=== PATIENT | female | born 1945 | race Caucasian/White ===

== ENCOUNTER → 2019-05-16 14:21 | Outpatient (BNVA) | payer MEDICARE, SELFPAY | PROVIDERS: Family Provider Nurse Practitioner Family; PCP Nurse Practitioner Family; Visit Provider Nurse Practitioner Family | DX: E11.9 Type 2 diabetes mellitus without complications (principal); I10 Essential (primary) hypertension; E78.5 Hyperlipidemia, unspecified; L98.9 Disorder of the skin and subcutaneous tissue, unspecified; G47.00 Insomnia, unspecified; F41.9 Anxiety disorder, unspecified; K21.9 Gastro-esophageal reflux disease without esophagitis; M54.5 Low back pain | CPT/HCPCS: 80053; 80061; 83036; 83721; 84443; 85025 ==

== ENCOUNTER → 2019-05-17 14:23 | Outpatient (BNVA) | payer MEDICARE, SELFPAY | PROVIDERS: Family Provider Nurse Practitioner Family; PCP Nurse Practitioner Family; Visit Provider Anesthesiology | DX: M47.816 Spondylosis without myelopathy or radiculopathy, lumbar region (principal); Z79.891 Long term (current) use of opiate analgesic | CPT/HCPCS: 99213 ==

== ENCOUNTER 2019-09-06 13:16 | Outpatient (CLI) | payer MEDICARE, SELFPAY ==
--- NOTE | 2019-09-06 13:30 | CT_ITS ---
WS: [id number] CT scan of the chest without IV contrast, additional two-dimensional coronal and sagittal reconstruct ion was performed. 09/06/2019 Clinical Data: Pulmonary nodule Comparison: CT chest, 12/24/2018. DLP: 869.[address] scans at [facility] use at least one of these dose optimization techniques: automat ed exposure control; mA and/or kV adjustment per patient size (includes targeted exams where dose is matched to clinical indication); or iterative reconstruction. Findings: The 3 right lower lobe nodules remain unchanged in size, all measuring 0.4 cm. There are 2 of them se en best on axial image 31 of 63 and 1 at axial image 26 of 63. No masses or effusions are seen. The heart size is normal with no pericardial effusion. No pneumonia or pneumothorax is seen. There is coronary artery calcification. Minimal calcification of the wall of the thoracic aorta is noted. The pulmonary arterial system and thoracic aorta demonstrate no abnorma lities or dilatations. There is no axillary or significant mediastinal adenopathy. The upper abdomen shows no change from before. There are clips in the gallbladder fossa from cholecys tectomy. CT/CT chest wo con [id number] Impression: No change in right lower lobe nodules in size or configuration and recommend no further follow-up CT scan of the chest.
== END 2019-09-06 13:17 | disposition home or self-care (01) ==
LOC: RADWPI 13:20
PROVIDERS: Family Provider Nurse Practitioner Family; PCP Nurse Practitioner Family; Visit Provider Internal Medicine Critical Care Medicine
DX: R91.1 Solitary pulmonary nodule (principal)
CPT/HCPCS: 71250

== ENCOUNTER → 2019-09-27 11:04 | Outpatient (BNVA) | payer MEDICARE, SELFPAY | PROVIDERS: Family Provider Nurse Practitioner Family; PCP Nurse Practitioner Family; Visit Provider Anesthesiology | DX: M47.816 Spondylosis without myelopathy or radiculopathy, lumbar region (principal); M54.9 Dorsalgia, unspecified; Z79.891 Long term (current) use of opiate analgesic | CPT/HCPCS: 99213; 99214 ==

== ENCOUNTER 2019-09-27 11:56 | Emergency (ER) | payer MEDICARE, SELFPAY ==
[2019-09-27] VITALS (7 sets, daily range): BP systolic 150–191; BP diastolic 103–108; PULSE 90–96; RESP 14–21; TEMP 36.7; O2SAT 94–98; BMI 27.3
--- NOTE | 2019-09-27 12:11 | ED_ITS ---
HPI - Abdominal Pain General: Chief Complaint: Abdominal Pain Stated Complaint: ABD PAIN X 5 DAYS Time Seen by Provider: 09/27/19 12:11 History of Present Illness: HPI narrative: 73 yo female complaining of left side pain radiating into her back. Mostly in the left lower quadrant she denies hematochezia hematuria dysuria urgency or frequency has not had a fever at any recent antibiotic she had one episode of vomiting the other day she has any shortness of breath or cough exposed to anyone she knows of with COVID. MD elicited complaint: abdominal pain Pertinent past history: constipation Onset (ago): day(s) (3 to 4 days) Pain Consistency: intermittent Location: LLQ Severity: moderate Quality: cramping and aching Radiation: back Migration to: LUQ Exacerbating factors: movement and other (Exam) Relieving factors: rest Associated Symptoms: Reports anorexia, bloating, change in bowel habits, co nstipation, GI cramping and poor appetite; Denies coffee ground emesis, diarrhea, dyspepsia, dysuria, fever(s), heartburn, hematochezia, hematuria, hematemesis, loose stools, melena and nausea Review of Systems Const: Denies: fever(s) ENMT: Denies: throat pain, ear or mastoid pain, nasal discharge or nasal congestion Card: Denies: chest pain, edema, dyspnea on exertion or orthopnea Resp: Denies: dyspnea, productive cough or non-productive cough GI: Reports: constipation, bloating, GI cramping and change in bowel habits; Denies: nausea, hematemesis, coffee ground emesis, heartburn, diarrhea, hematochezia or melena : Denies: dysuria or hematuria Skin/Breast: Denies: rash or pruritus PFS ED PFSH: Medical History (Updated 09/27/19 @ 16:28 by Db Hernandez DO) Acute bilateral low back pain without sciatica Anxiety Back pain with history of spinal surgery Chronic GERD DDD (degenerative disc disease), lumbar Diabetes Dorsalgia, unspecified Encounter for long-term use of opiate analgesic Hyperlipemia Hypertension Insomnia Lumbar spondylosis Opioid contract exists Surgical History History of adenectomy History of appendectomy History of back surgery Hx of cholecystectomy Family History Other CAD (coronary artery disease) Stroke Social History (Updated 09/27/19 @ 11:29 by Lashaun Lawler LPN) Smoking and tobacco status: never smoked Alcohol intake: never Lives independently: Yes Household members: spouse Housing: House Marital status: Current occupational status: disabled History of recent travel: No Current gender identity: Female Physical Exam Const: COMMON NORMALS: no acute distress GENERAL APPEARANCE: cooperative and comfortable ORIENTATION/CONSCIOUSNESS: Yes awake, Yes oriented to person, Yes oriented to place and Yes oriented to time HENMT: COMMON NORMALS: normocephalic, atraumatic, hearing grossly normal bilaterally, external ears normal, EAC's normal, TM's normal bilaterally, Normal nasal mucous membranes and turbinates present, moist oral mucous membranes and oropharynx normal HEAD & SCALP: normocephalic and atraumatic NOSE: Normal nasal mucous membranes and turbinates present EXTERNAL EAR: Yes external ears normal EXTERNAL AUDITORY CANAL: EAC's normal TYMPANIC MEMBRANE: TM's normal bilaterally Eye: COMMON NORMALS: Equal, round and reactive pupils present, EOMs intact bilaterally, conjunctivae normal and no scleral icterus CONJUNCTIVA: Yes conjunctivae normal PUPIL: Yes Equal, round and reactive pupils present Neck/C-Spine: COMMON NORMALS: full ROM, no lymphadenopathy, supple and no JVD Lymph: LYMPHATIC: no lymphadenopathy noted and no lymphedema noted Resp: COMMON NORMALS: normal respiratory effort, No retractions, No use of accessory muscles and clear to auscultation bilaterally AUSCULTATION: clear to auscultation bilaterally Cardio: COMMON NORMALS: no JVD, regular rate, regular rhythm and No murmurs present (Cardio) RATE: regular rate RHYTHM: regular rhythm GI: COMMON NORMALS: Soft to palpation and No hepatosplenomegaly present AUSCULTATION: Yes normoactive bowel sounds PALPATION: Yes Soft to palpation, No Tenderness to palpation present (GI), No Guarding due to palpation present (GI) and Yes No hepatosplenomegaly present Extremity: COMMON NORMALS: normal to inspection, capillary refill normal, no clubbing, cyanosis or edema, no calf tenderness and no pedal edema Neuro: SENSORIUM/ORIENTATION: Yes oriented to person, Yes oriented to place and Yes oriented to time Skin: COMMON NORMALS: no rashes or lesions noted GENERAL SKIN EXAM: no rashes or lesions noted Course Vital Signs: Vital signs: Vital Signs Temperature 98.0 F 09/27/19 12:02 Pulse Rate 90 09/27/19 17:15 Respiratory Rate 18 09/27/19 17:15 Blood Pressure 150/106 09/27/19 17:15 Pulse Oximetry 96 09/27/19 17:15 MDM - Abdominal Pain MDM Narrative: Medical decision making narrative: CT does not show any diverticulitis instead shows large amount of constipation. She had moderate relief of symptoms with no current molasses enema enema. We will have her use mag citrate further to relieve her symptoms. Encourage her to use [id number] stool softeners twice a day to prevent recurrence and strongly encourage her to follow-up with her primary care doctor she should get a colonoscopy sometime in the next few months. She has not had one for greater than 10 years she reports. Lab Data: Labs: Lab Results 09/27/19 09/27/19 09/27/19 Range/Units 12:27 12:27 12:27 WBC 11.3 H (4.0-10.0) 10^3/ uL RBC 4.30 (4.1-5.3) 10^6/u L Hgb 12.3 (11.5-15.3) g/dL Hct 38.8 (37.0-47.0) % MCV 90.2 (81-99) fL MCH 28.6 (28.0-34.0) pg MCHC 31.7 (30.0-36.0) g/dL RDW 13.6 (12.1-15.1) % Plt Count 332 (130-400) 10^3/c mm MPV 10.2 (7.4-10.4) fL Neut % (Auto) 57.3 % Lymph % (Auto) 35.1 % Frio % (Auto) 5.7 % Eos % (Auto) 1.0 % Baso % (Auto) 0.5 % Neut # (Auto) 6.5 (1.8-7.7) 10^3/u L Lymph # (Auto) 4.0 (0.8-4.8) 10^3/u L Frio # (Auto) 0.7 (0.2-0.9) 10^3/u L Eos # (Auto) 0.1 (0.0-0.8) 10^3/u L Baso # (Auto) 0.1 (0.0-0.1) 10^3/u L Nucleated RBC % (a uto) 0 % Nucleated RBCs # 0.0 /100WBC Sodium 137 (136-145) mmol/L Potassium 4.2 (3.5-5.1) mmol/L Chloride 98 (98-107) mmol/L Carbon Dioxide 26 (22-29) mmol/L Anion Gap 17.2 (5-19) BUN 14 (8-23) mg/dL Creatinine 1.2 H (0.5-0.9) mg/dL Glucose 240 H (65-115) mg/dL Calculated Osmolal ity 288 (285-295) mOsm/k g Lactate 2.7 H (0.5-2.2) mmol/L Calcium 10.1 (8.5-10.5) mg/dL Total Bilirubin 0.4 (0.15-1.2) mg/dL AST 27 (0-32) U/L ALT 22 (0-33) U/L Alkaline Phosphata se 67 (35-105) IU/L Total Protein 7.4 (6.6-8.7) g/dL Albumin 4.6 (3.5-5.2) g/dL Globulin 2.8 (1.3-4.6) g/dL Lipase 27 (13-60) U/L Urine Color (Yellow) Urine Appearance (CLEAR) Urine pH (5-7) Ur Specific Gravit y (1.005-1.030) Urine Protein (Negative) Urine Glucose (UA) (Normal) Urine Ketones (Negative) Urine Blood (Negative) Urine Nitrate (Negative) Urine Bilirubin (NEGATIVE) Urine Urobilinogen (Negative) mg/dL Ur Leukocyte Sis ase (Negative) 09/27/19 Range/Units 12:48 WBC (4.0-10.0) 10^3/ uL RBC (4.1-5.3) 10^6/u L Hgb (11.5-15.3) g/dL Hct (37.0-47.0) % MCV (81-99) fL MCH (28.0-34.0) pg MCHC (30.0-36.0) g/dL RDW (12.1-15.1) % Plt Count (130-400) 10^3/c mm MPV (7.4-10.4) fL Neut % (Auto) % Lymph % (Auto) % Frio % (Auto) % Eos % (Auto) % Baso % (Auto) % Neut # (Auto) (1.8-7.7) 10^3/u L Lymph # (Auto) (0.8-4.8) 10^3/u L Frio # (Auto) (0.2-0.9) 10^3/u L Eos # (Auto) (0.0-0.8) 10^3/u L Baso # (Auto) (0.0-0.1) 10^3/u L Nucleated RBC % (a uto) % Nucleated RBCs # /100WBC Sodium (136-145) mmol/L Potassium (3.5-5.1) mmol/L Chloride (98-107) mmol/L Carbon Dioxide (22-29) mmol/L Anion Gap (5-19) BUN (8-23) mg/dL Creatinine (0.5-0.9) mg/dL Glucose (65-115) mg/dL Calculated Osmolal ity (285-295) mOsm/k g Lactate (0.5-2.2) mmol/L Calcium (8.5-10.5) mg/dL Total Bilirubin (0.15-1.2) mg/dL AST (0-32) U/L ALT (0-33) U/L Alkaline Phosphata se (35-105) IU/L Total Protein (6.6-8.7) g/dL Albumin (3.5-5.2) g/dL Globulin (1.3-4.6) g/dL Lipase (13-60) U/L Urine Color Yellow (Yellow) Urine Appearance Clear (CLEAR) Urine pH 5.0 (5-7) Ur Specific Gravit y 1.020 (1.005-1.030) Urine Protein Neg (Negative) Urine Glucose (UA) 2+ (Normal) Urine Ketones Negative (Negative) Urine Blood Neg (Negative) Urine Nitrate Negative (Negative) Urine Bilirubin Neg (NEGATIVE) Urine Urobilinogen Norm (Negative) mg/dL Ur Leukocyte Sis ase Negative (Negative) Discharge Plan Discharge Patient Disposition: Home, Self-Care Clinical Impression: Constipation Condition: Stable Prescriptions: New magnesium citrate Solution 150 ml PO TID PRN (Reason: constipation) Qty: 296 RF: 0 No Action hydrocodone-acetaminophen 5-325 mg tablet 1 tab PO QID PRN (Reason: pain) 7 Days Qty: 28 RF: 0 baclofen 10 mg tablet 10 mg PO TID PRN (Reason: spasms) 30 Days Qty: 90 RF: 1 (DME) blood pressure monitor [Blood Pressure Kit] Kit See Rx Instructions .ROUTE .MEDSUPPLY Qty: 1 RF: 0 quetiapine 100 mg tablet 100 mg PO DAILY 30 Days Qty: 30 RF: 5 duloxetine 60 mg capsule, delayed rel sprinkle 60 mg PO DAILY 30 Days Qty: 30 RF: 5 pantoprazole 40 mg tablet,delayed release (DR/EC) 40 mg PO DAILY 30 Days Qty: 30 RF: 5 atorvastatin 80 mg tablet 80 mg PO DAILY 30 Days Qty: 30 RF: 5 lisinopril-hydrochlorothiazide 20-25 mg tablet 1 tab PO DAILY 30 Days Qty: 30 RF: 5 Janumet XR 100-1,000 mg tablet, ER multiphase 24 hr 1 tab PO DAILY 30 Days Qty: 30 RF: 5 meloxicam 15 mg tablet 15 mg PO DAILY 30 Days Qty: 30 RF: 5 omega-3 fatty acids [Fish Oil Concentrate] 1,000 mg capsule 1,000 mg PO BID 30 Days Qty: 60 RF: 5 fluticasone propionate [Flonase Allergy Relief] 50 mcg/actuation spray,suspension 1 spray INTRANASAL DAILY Qty: 16 RF: 3 Multiple Vitamins Tablet 1 tab PO DAILY RF: 0 Discharge Orders: Discharge Order (Routine); Ordered 09/27/19 Ordered By: Db Hernandez Referrals: Venecia Bernardo FNP-C [Primary Care Provider] - Discharge Date/Time: 09/27/19 17:15 Coding Level of Care Code ED Machine Group Leader for Chg Fwd Exam Comprehensive
--- NOTE | 2019-09-27 12:21 | CT_ITS ---
WS: [id number] CT ABDOMEN AND PELVIS WITH CONTRAST HISTORY: Generalized abdominal pain. TECHNIQUE: Imaging performed of the abdomen and pelvis with IV contrast. Single phase imaging of the abdomen. Coronal and sagittal reformats are submitted. All CT scans at [facility] use at least one of these dose optimization techniques: automated exposure control; mA and/or kV adjustment per patient size (includes targeted exams where dose is matched to clinical indication); or iterativ e reconstruction. IV CONTRAST: Visipaque 320; 95 mL IV. Oral contrast: No DLP: 1090.05 mGy.cm COMPARISON: 12/06/2018 Lower thorax: Stable micronodules in the RIGHT lower lung field since 12/24/2018. No pneumonia. Heart is normal size. Small hiatal hernia. Liver/biliary system: Normal size liver. There is mild intrahepatic duct dilatation which may be phys iologic and based on the prior cholecystectomy. Gallbladder: Prior cholecystectomy. Common bile duct measures 10 mm. Pancreas: Normal. Spleen: Normal size with granulomata. Adrenal glands: Normal. Right kidney: Mild cortical thinning. Solid enhancing mass with peripheral calcification measures 16 mm upper pole RIGHT kidney has been previously described. No significant increase in size since 2018. There is an additional hypoattenuating nodule measuring 10 mm in the lower pole cortex. Left kidney: Exophytic cyst lower pole measures 18 mm. Aorta: Mild atherosclerosis. No aneurysm. Lymphadenopathy: None. Free fluid: None. GI tract: There is extensive fecal retention throughout the colon. Mixture of air and fecal material. No solid mass or point of obstruction is identified. The lumen becomes small caliber near the rectum and distal sigmoid. Prior appendectomy. Stomach is also moderately distended with fluid and food pro ducts. Abdominal wall: Unremarkable abdominal wall. No hernia. Pelvis: Normal. Prior hysterectomy. Bones: Prior L4-[address]/CT abdomen pelvis w con* [id number] IMPRESSION: 1. Mild diffuse fluid and fecal retention throughout the colon. Suspect mild i leus. No transition point is identified although the lumen becomes narrowed tow ards the sigmoid and rectum. 2. No ascites. 3. Prior appendectomy, cholecystectomy and hysterectomy. 4. Mild central bile duct dilatation is similar to prior studies. 5. Solid RIGHT renal mass stable at 16 mm. Additional solid mass or complex cy st in the lower pole the RIGHT kidney. These masses were described on 12/06/2018 without progression.
[2019-09-27 12:34] LABS: Basophils # 0.1 10^3/uL (0.0-0.1); Basophils % 0.5 %; Eosinophils # 0.1 10^3/uL (0.0-0.8); Hematocrit 38.8 % (37.0-47.0); Hemoglobin 12.3 g/dL (11.5-15.3); Lymphocytes % 35.1 %; Mean Corpuscular HGB Conc 31.7 g/dL (30.0-36.0); Mean Corpuscular Hemoglobin 28.6 pg (28.0-34.0); Mean Corpuscular Volume 90.2 fL (81-99); Mean Platelet Volume 10.2 fL (7.4-10.4); Monocytes # 0.7 10^3/uL (0.2-0.9); Monocytes % 5.7 %; Neutrophils # 6.5 10^3/uL (1.8-7.7); Neutrophils % 57.3 %; Nucleated Red Blood Cells % 0 %; Platelet Count 332 10^3/cmm (130-400); Red Cell Distribution Width 13.6 % (12.1-15.1); White Blood Count 11.3 10^3/uL (4.0-10.0)
[2019-09-27] MEDS: sodium chlor 0.9% + KCl 20 mEq 20 MEQ/1,000 ML BAG 125 MEQ IV (12:52)
[2019-09-27] MEDS: ondansetron 2 mg/ML SDV 2 mL 4 MG IVP (12:53)
[2019-09-27] MEDS: morphine 4 mg/mL SDV 1 mL 2 MG IVP (12:53)
[2019-09-27 13:02] LABS: Alanine Aminotransferase 22 U/L (0-33); Albumin Level 4.6 g/dL (3.5-5.2); Alkaline Phosphatase 67 IU/L (35-105); Anion Gap 17.2 (5-19); Aspartate Amino Transferase 27 U/L (0-32); Blood Urea Nitrogen 14 mg/dL (8-23); Calcium 10.1 mg/dL (8.5-10.5); Carbon Dioxide 26 mmol/L (22-29); Chloride 98 mmol/L (98-107); Globulin 2.8 g/dL (1.3-4.6); Glucose 240 mg/dL (65-115); Lipase 27 U/L (13-60); Osmolality Calculated 288 mOsm/kg (285-295); Potassium 4.2 mmol/L (3.5-5.1); Sodium 137 mmol/L (136-145); Total Bilirubin 0.4 mg/dL (0.15-1.2); Total Protein 7.4 g/dL (6.6-8.7)
[2019-09-27 13:09] LABS: Lactate (Lactic Acid level) 2.7 mmol/L (0.5-2.2)
[2019-09-27] MEDS: iodixanol 320 mg/mL 100mL Btl IV (13:20)
[2019-09-27 13:41] LABS: Add Urine Microscopic? NO
[2019-09-27 13:54] LABS: Bilirubin Urine Neg (NEGATIVE); Blood Urine Neg (Negative); Glucose Urine UA 2+ (Normal); Ketones Urine Negative (Negative); Leukocyte Esterase Urine Negative (Negative); Nitrate Urine Negative (Negative); Protein Urine Neg (Negative); Urine Appearance Clear (CLEAR); Urine Color Yellow (Yellow); Urobilinogen Urine Norm (Negative)
--- NOTE | 2019-09-27 16:25 | PC.NURSE ---
Patient reports that she had a small bowel movement. Physician notified.
== END 2019-09-27 17:15 | disposition home or self-care (01) ==
PROVIDERS: Emergency Provider Family Medicine; Family Provider Nurse Practitioner Family; PCP Nurse Practitioner Family
DX: K59.00 Constipation, unspecified (principal); E11.9 Type 2 diabetes mellitus without complications; E78.5 Hyperlipidemia, unspecified; I10 Essential (primary) hypertension
CPT/HCPCS: 12345; 36415; 45915; 74177; 80053; 81003; 83605; 83690; 85025; 87040; 96365; 96366; 96375; 99283; 99284; J2270; J2405; Q9967

== ENCOUNTER → 2019-10-19 15:20 | Outpatient (BNVA) | payer MEDICARE, SELFPAY | PROVIDERS: Family Provider Nurse Practitioner Family; PCP Nurse Practitioner Family; Visit Provider Nurse Practitioner Family | DX: E78.5 Hyperlipidemia, unspecified (principal); E11.9 Type 2 diabetes mellitus without complications | CPT/HCPCS: 80053; 80061; 83036; 84443; 85025 ==

== ENCOUNTER → 2019-11-22 12:25 | Outpatient (BNVA) | payer MEDICARE, SELFPAY | PROVIDERS: Family Provider Nurse Practitioner Family; PCP Nurse Practitioner Family; Visit Provider Nurse Practitioner | DX: M47.816 Spondylosis without myelopathy or radiculopathy, lumbar region (principal); M54.9 Dorsalgia, unspecified; F41.9 Anxiety disorder, unspecified; Z79.891 Long term (current) use of opiate analgesic | CPT/HCPCS: 99213 ==

== ENCOUNTER → 2019-12-21 13:48 | Outpatient (BNVA) | payer MEDICARE, SELFPAY | PROVIDERS: Family Provider Nurse Practitioner Family; PCP Nurse Practitioner Family; Visit Provider Anesthesiology | DX: M54.41 Lumbago with sciatica, right side (principal); M54.42 Lumbago with sciatica, left side; M47.816 Spondylosis without myelopathy or radiculopathy, lumbar region; M54.9 Dorsalgia, unspecified; F41.9 Anxiety disorder, unspecified; Z79.891 Long term (current) use of opiate analgesic | CPT/HCPCS: 99213; 99214 ==

== ENCOUNTER → 2019-12-22 13:46 | Outpatient (BNVA) | payer MEDICARE, SELFPAY | PROVIDERS: Family Provider Nurse Practitioner Family; PCP Nurse Practitioner Family; Visit Provider Nurse Practitioner | DX: N28.89 Other specified disorders of kidney and ureter (principal); E11.65 Type 2 diabetes mellitus with hyperglycemia; E55.9 Vitamin D deficiency, unspecified | CPT/HCPCS: 80048; 82306; 82607 ==

== ENCOUNTER → 2020-01-02 14:03 | Outpatient (BNVA) | payer MEDICARE, SELFPAY | PROVIDERS: PCP Nurse Practitioner Family; Visit Provider Nurse Practitioner | DX: E11.65 Type 2 diabetes mellitus with hyperglycemia (principal); I10 Essential (primary) hypertension | CPT/HCPCS: 83036 ==

== ENCOUNTER 2020-01-31 05:50 | Emergency (ER) | payer MEDICARE, SELFPAY ==
[2020-01-31 06:03] VITALS: BMI 26.6
[2020-01-31 06:12] VITALS: BP 160/100; BP 168/106; PULSE 94; PULSE 96; RESP 16; RESP 18; TEMP 36.8; O2SAT 94; O2SAT 95
[2020-01-31 06:34] VITALS: BP 149/101
--- NOTE | 2020-01-31 06:54 | XR_ITS ---
WS: [id number] XR shoulder RT min 2V* [id number] REASON FOR EXAM: fall/trauma FINDINGS: Mild changes of osteoarthropathy knee acromioclavicular and glenohumeral joint. Calcification in the rotator cuff tendon near its insertion. No fracture or other focal bony lesion of the shoulder joint. XR/XR shoulder RT min 2V* [id number] IMPRESSION: Osteoarthropathy and calcific tendinopathy as above.
--- NOTE | 2020-01-31 06:54 | XR_ITS ---
WS: [id number] XR cervical spine 3V* [id number] REASON FOR EXAM: fall/trauma FINDINGS: No cervical vertebral body compression deformity. Normal odontoid. Normal cervical spine alignment. Narrowing of the intervertebral disc spaces C5-T1. Degenerative facet joint changes C3-T1. XR/XR cervical spine 3V* [id number] IMPRESSION: Changes of degenerative spondylosis with no acute cervical spine abnormality.
--- NOTE | 2020-01-31 06:54 | XR_ITS ---
WS: [id number] XR shoulder LT min 2V* [id number] REASON FOR EXAM: fall/trauma FINDINGS: Same findings as reported on the examination of the left scapula. Osteoarthropathic change in the acromioclavicular and glenohumeral joint. Calcific rotator cuff tendi nopathy. XR/XR shoulder LT min 2V* [id number] IMPRESSION: No acute abnormality.
--- NOTE | 2020-01-31 06:56 | CT_ITS ---
WS: [id number] CT HEAD TECHNIQUE: Noncontrast CT of the head obtained from the skullbase to the vertex. CLINICAL INFORMATION: fall COMPARISON: None. DLP: 562.[address] scans at [facility] use at least one of these dose optimization techniques: automat ed exposure control; mA and/or kV adjustment per patient size (includes targeted exams where dose is matched to clinical indication); or iterative reconstruction. FINDINGS: No evidence of intracranial hemorrhage or mass effect. Ventricular system and basal cisterns are levine nt. Mild small vessel changes with mild parenchymal volume loss. Chronic lacunar infarct right caudat e. No extra-axial fluid collections. No evidence of mass or mass effect. Normal carias-white differenti ation. Paranasal sinuses and mastoid air cells are well aerated. .Normal visualized soft tissues. Vascular c alcification. Soft tissue edema overlying the right parietal calvarium. No acute fractures. CT/CT head wo con* [id number] IMPRESSION: 1. No evidence of intracranial hemorrhage or mass effect. 2. Mild small vessel changes. Mild parenchymal volume loss. 3. Soft tissue edema overlying the right parietal calvarium. No acute fracture s. 4. No acute intracranial findings. Notified Db Hernandez DO at 01/31/2020 8:17 AM.
--- NOTE | 2020-01-31 07:03 | PC.NURSE ---
Report to EBEN Ybarra
--- NOTE | 2020-01-31 07:04 | W.ED.FALL ---
HPI - Fall General: Chief Complaint: Fall Stated Complaint: BACK PAIN/FALL Time Seen by Provider: 01/31/20 06:10 History of Present Illness: HPI Narrative: 74-year-old female comes in complaining of upper back pain after a fall. She got up quickly to use the restroom and got lightheaded dizzy fell backwards she hit her upper back on the back of her head on the floor when she fell. She denies any loss of consciousness. She not had any vomiting or diarrhea she does have is what she describes a small knot on the back of her head she is not on any anticoagulants. She was ambulatory after the fall she denies any chest pain or abdominal pain. She does have little bit of lower left rib pain on palpation. MD complaint: fall Onset (ago): minute(s) Fall from: standing Fall witnessed: no Place fall occurred: home Loss of consciousness: None Prolonged down time: no Symptoms prior to fall: lightheadedness Location of injury: head and neck Location of injury - extremities: Bilateral: shoulder Severity: moderate Associated symptoms-after fall: Reports lightheadedness and neck pain; Denies abdominal pain, chest pain, confusion, difficulty walking, headache(s), hematuria, numbness, short of breath, vertigo or weakness Review of Systems Const: Denies: fever(s), chills, body aches, change in appetite, fatigue or malaise ENMT: Denies: throat pain, ear or mastoid pain, nasal discharge or nasal congestion Card: Reports: lightheadedness; Denies: chest pain Resp: Denies: dyspnea, productive cough or non-productive cough GI: Denies: abdominal pain : Denies: hematuria Musc: Reports: neck pain Skin/Breast: Denies: rash or pruritus Neuro: Denies: headache(s), difficulty walking, vertigo or confusion PFSH ED PFSH: Medical History (Updated 01/31/20 @ 12:40 by Db Hernandez DO) Acute bilateral low back pain without sciatica Anxiety Back pain with history of spinal surgery Chronic GERD DDD (degenerative disc disease), lumbar Diabetes mellitus with hyperglycemia, without long-term current use of insulin Dorsalgia, unspecified Encounter for long-term use of opiate analgesic Hyperlipemia Hypertension Insomnia Lumbar spondylosis Nodule of kidney Right 16mm seen [facility] [address] 2019 Opioid contract exists Surgical History History of adenectomy History of appendectomy History of back surgery 3 times on lumbar Hx of cholecystectomy Family History Other CAD (coronary artery disease) Stroke Social History Smoking and tobacco status: never smoked Second hand smoke exposure: No Smoking risk assessment/counseling performed?: No Alcohol intake: never Desire information about alcohol rehabilitation?: No Counseling given: No Desire information about substance/drug rehabilitation?: No Counseling given: No Adopted: No Caregiver/support person: No Lives independently: Yes Household members: spouse Housing: House Marital status: Current occupational status: disabled History of recent travel: No Current gender identity: Female Physical Exam Const: COMMON NORMALS: no acute distress GENERAL APPEARANCE: cooperative and comfortable ORIENTATION/CONSCIOUSNESS: Yes awake, Yes oriented to person, Yes oriented to place and Yes oriented to time HENMT: COMMON NORMALS: normocephalic, atraumatic and hearing grossly normal bilaterally HEAD & SCALP: normocephalic and atraumatic Eye: COMMON NORMALS: Equal, round and reactive pupils present, EOMs intact bilaterally, conjunctivae normal and no scleral icterus CONJUNCTIVA: Yes conjunctivae normal PUPIL: Yes Equal, round and reactive pupils present Neck/C-Spine: COMMON NORMALS: no JVD OTHER: No pain with palpation along the C-spine. Patient able to rotate bed flex and extend without difficulty. Lymph: LYMPHATIC: no lymphadenopathy noted and no lymphedema noted Resp: COMMON NORMALS: normal respiratory effort, No retractions, No use of accessory muscles and clear to auscultation bilaterally AUSCULTATION: clear to auscultation bilaterally Cardio: COMMON NORMALS: no JVD, regular rate, regular rhythm and No murmurs present (Cardio) RATE: regular rate RHYTHM: regular rhythm GI: COMMON NORMALS: Soft to palpation and No hepatosplenomegaly present AUSCULTATION: Yes normoactive bowel sounds PALPATION: Yes Soft to palpation, No Tenderness to palpation present (GI), No Guarding due to palpation present (GI) and Yes No hepatosplenomegaly present Extremity: OTHER: Full range of motion all extremities mild discomfort with palpation over the scapula bilaterally pain on the left lower ribs. Neuro: SENSORIUM/ORIENTATION: Yes oriented to person, Yes oriented to place and Yes oriented to time Skin: COMMON NORMALS: no rashes or lesions noted GENERAL SKIN EXAM: no rashes or lesions noted Course Vital Signs: Vital signs: Vital Signs Temperature 98.2 F 01/31/20 06:12 Pulse Rate 107 H 01/31/20 13:27 Respiratory Rate 14 01/31/20 13:27 Blood Pressure 186/112 01/31/20 13:27 Pulse Oximetry 97 01/31/20 13:27 MDM - Fall MDM Narrative: Medical decision making narrative: Imaging unremarkable. REviweed with patient and family. Will discharge from ER and f/u with PCP within the week. Lab Data: Labs: Lab Results 01/31/20 01/31/20 01/31/20 Range/Units 08:15 10:49 11:00 WBC 11.9 H (4.0-10.0) 10^3/ uL RBC 4.63 (4.1-5.3) 10^6/u L Hgb 13.4 (11.5-15.3) g/dL Hct 42.2 (37.0-47.0) % MCV 91.1 (81-99) fL MCH 28.9 (28.0-34.0) pg MCHC 31.8 (30.0-36.0) g/dL RDW 13.8 (12.1-15.1) % Plt Count 368 (130-400) 10^3/c mm MPV 10.5 H (7.4-10.4) fL Neut % (Auto) 65.9 % Lymph % (Auto) 26.7 % [place] % (Auto) 6.4 % Eos % (Auto) 0.3 % Baso % (Auto) 0.4 % Neut # (Auto) 7.87 H (1.8-7.7) 10^3/u L Lymph # (Auto) 3.2 (0.8-4.8) 10^3/u L [place] # (Auto) 0.8 (0.2-0.9) 10^3/u L Eos # (Auto) 0.0 (0.0-0.8) 10^3/u L Baso # (Auto) 0.1 (0.0-0.1) 10^3/u L Nucleated RBC % (a uto) 0 % Nucleated RBCs # 0.0 /100WBC Sodium (136-145) mmol/L Potassium (3.5-5.1) mmol/L Chloride (98-107) mmol/L Carbon Dioxide (22-29) mmol/L Anion Gap (5-19) BUN (8-23) mg/dL Creatinine (0.5-0.9) mg/dL GFR Calculation Glucose (65-115) mg/dL POC Glucose 130 (70-110) mg/dL Calculated Osmolal ity (285-295) mOsm/k g Calcium (8.5-10.5) mg/dL Urine Color Yellow (Yellow) Urine Appearance Clear (CLEAR) Urine pH 5.0 (5-7) Ur Specific Gravit y 1.020 (1.005-1.030) Urine Protein Neg (Negative) Urine Glucose (UA) Norm (Normal) Urine Ketones 1+ H (Negative) Urine Blood Neg (Negative) Urine Nitrate Negative (Negative) Urine Bilirubin 1+ H (Negative) Urine Urobilinogen Norm (Negative) mg/dL Ur Leukocyte Sis ase Negative (Negative) 01/31/20 Range/Units 11:00 WBC (4.0-10.0) 10^3/ uL RBC (4.1-5.3) 10^6/u L Hgb (11.5-15.3) g/dL Hct (37.0-47.0) % MCV (81-99) fL MCH (28.0-34.0) pg MCHC (30.0-36.0) g/dL RDW (12.1-15.1) % Plt Count (130-400) 10^3/c mm MPV (7.4-10.4) fL Neut % (Auto) % Lymph % (Auto) % [place] % (Auto) % Eos % (Auto) % Baso % (Auto) % Neut # (Auto) (1.8-7.7) 10^3/u L Lymph # (Auto) (0.8-4.8) 10^3/u L [place] # (Auto) (0.2-0.9) 10^3/u L Eos # (Auto) (0.0-0.8) 10^3/u L Baso # (Auto) (0.0-0.1) 10^3/u L Nucleated RBC % (a uto) % Nucleated RBCs # /100WBC Sodium 142 (136-145) mmol/L Potassium 3.7 (3.5-5.1) mmol/L Chloride 101 (98-107) mmol/L Carbon Dioxide 28 (22-29) mmol/L Anion Gap 16.7 (5-19) BUN 11 (8-23) mg/dL Creatinine 0.9 (0.5-0.9) mg/dL GFR Calculation Not Reportable Glucose 128 H (65-115) mg/dL POC Glucose (70-110) mg/dL Calculated Osmolal ity 295 (285-295) mOsm/k g Calcium 10.0 (8.5-10.5) mg/dL Urine Color (Yellow) Urine Appearance (CLEAR) Urine pH (5-7) Ur Specific Gravit y (1.005-1.030) Urine Protein (Negative) Urine Glucose (UA) (Normal) Urine Ketones (Negative) Urine Blood (Negative) Urine Nitrate (Negative) Urine Bilirubin (Negative) Urine Urobilinogen (Negative) mg/dL Ur Leukocyte Sis ase (Negative) Discharge Plan Discharge Patient Disposition: Home Clinical Impression: Fall, Back pain Condition: Stable Prescriptions: No Action atorvastatin 80 mg tablet 80 mg PO DAILY 30 Days Qty: 30 RF: 5 meloxicam 15 mg tablet 15 mg PO DAILY 30 Days Qty: 30 RF: 5 pantoprazole 40 mg tablet,delayed release (DR/EC) 40 mg PO DAILY 30 Days Qty: 30 RF: 5 quetiapine 100 mg tablet 100 mg PO DAILY 30 Days Qty: 30 RF: 5 omega-3 fatty acids [Fish Oil Concentrate] 1,000 mg capsule 1,000 mg PO BID 30 Days Qty: 60 RF: 5 metformin 500 mg tablet extended release 24 hr 500 mg PO BID Qty: 60 RF: 0 (DME) blood pressure monitor [Blood Pressure Kit] Kit See Rx Instructions .ROUTE .MEDSUPPLY Qty: 1 RF: 0 baclofen 10 mg tablet 10 mg PO TID PRN (Reason: spasms) 30 Days Qty: 90 RF: 3 hydrocodone-acetaminophen 7.5-325 mg tablet 1 tab PO QID PRN (Reason: pain) 30 Days Qty: 120 RF: 0 hydrocodone-acetaminophen 7.5-325 mg tablet 1 tab PO Q4-5H PRN (Reason: pain) 30 Days Qty: 120 RF: 0 duloxetine 60 mg capsule, delayed rel sprinkle 60 mg PO BID 30 Days Qty: 60 RF: 1 lisinopril 40 mg tablet 40 mg PO DAILY Qty: 30 RF: 2 furosemide [Lasix] 20 mg tablet 20 mg PO QAM Qty: 30 RF: 2 Ozempic 0.25 mg or 0.5 mg(2 mg/1.5 mL) pen injector 0.5 mg SUBCUT .weekly Qty: 1.5 RF: 2 fluticasone propionate [Flonase Allergy Relief] 50 mcg/actuation spray,suspension 1 spray INTRANASAL DAILY Qty: 16 RF: 3 Multiple Vitamins Tablet 1 tab PO DAILY RF: 0 magnesium citrate Solution 150 ml PO TID PRN (Reason: constipation) Qty: 296 RF: 0 Discharge Orders: Discharge Order (Routine); Ordered 01/31/20 Ordered By: Db Hernandez Referrals: Venecia Bernardo FNP-C [Primary Care Provider] - Coding Level of Care Code ED Professor Of Spanish for Chg Fwd Exam Comprehensive
--- NOTE | 2020-01-31 07:08 | XR_ITS ---
WS: [id number] XR ribs LT mn 3V w CXR1V 40052 REASON FOR EXAM: fall FINDINGS: No fracture or focal bone lesion involving the left ribs. No left pneumothorax. No left pleural effus ion. XR/XR ribs LT mn 3V w CXR1V [id number] IMPRESSION: No acute abnormality.
--- NOTE | 2020-01-31 07:08 | XR_ITS ---
WS: [id number] [place] [id number] REASON FOR EXAM: pain/fall FINDINGS: Same findings as noted on the shoulder examination. The scapula and remainder the bony structures of the right shoulder are intact. XR/[place] [id number] IMPRESSION: No acute abnormality.
--- NOTE | 2020-01-31 07:08 | XR_ITS ---
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 Calcifications in the soft tissues overlying the humeral head, likely within the rotator cuff tendon. No fracture or dislocation noted. No focal bony lesion. Scapula is intact. 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 Calc ific rotator cuff tendinopathy.
[2020-01-31 08:45] LABS: Add Urine Microscopic? NO
[2020-01-31 08:59] LABS: Glucose Urine UA Norm (Normal); Protein Urine Neg (Negative); Urine Appearance Clear (CLEAR); Urine Color Yellow (Yellow)
[2020-01-31 09:00] LABS: Bilirubin Urine 1+ (Negative); Blood Urine Neg (Negative); Ketones Urine 1+ (Negative); Leukocyte Esterase Urine Negative (Negative); Nitrate Urine Negative (Negative); Urobilinogen Urine Norm (Negative)
[2020-01-31] MEDS: HYDROcodone-acetaminophen 5-325 mg Tablet 1 TAB PO (09:03)
[2020-01-31 09:11] VITALS: BP 192/121; PULSE 94; RESP 18; O2SAT 94
[2020-01-31 10:51] LABS: Glucose Point of Care 130 mg/dL (70-110)
[2020-01-31 11:14] LABS: Basophils # 0.1 10^3/uL (0.0-0.1); Basophils % 0.4 %; Eosinophils % 0.3 %; Hematocrit 42.2 % (37.0-47.0); Hemoglobin 13.4 g/dL (11.5-15.3); Lymphocytes # 3.2 10^3/uL (0.8-4.8); Lymphocytes % 26.7 %; Mean Corpuscular HGB Conc 31.8 g/dL (30.0-36.0); Mean Corpuscular Hemoglobin 28.9 pg (28.0-34.0); Mean Corpuscular Volume 91.1 fL (81-99); Mean Platelet Volume 10.5 fL (7.4-10.4); Monocytes # 0.8 10^3/uL (0.2-0.9); Monocytes % 6.4 %; Neutrophils # 7.87 10^3/uL (1.8-7.7); Neutrophils % 65.9 %; Nucleated Red Blood Cells % 0 %; Platelet Count 368 10^3/cmm (130-400); Red Blood Count 4.63 10^6/uL (4.1-5.3); Red Cell Distribution Width 13.8 % (12.1-15.1); White Blood Count 11.9 10^3/uL (4.0-10.0)
[2020-01-31 11:28] VITALS: BP 240/130
[2020-01-31] MEDS: lisinopril 20 mg Tablet 40 MG PO (11:28)
[2020-01-31] MEDS: cloNIDine 0.1 mg Tablet PO (11:28)
[2020-01-31] MEDS: amlodipine 5 mg Tablet PO (11:29)
[2020-01-31 11:38] LABS: Anion Gap 16.7 (5-19); Blood Urea Nitrogen 11 mg/dL (8-23); Carbon Dioxide 28 mmol/L (22-29); Chloride 101 mmol/L (98-107); Glucose 128 mg/dL (65-115); Osmolality Calculated 295 mOsm/kg (285-295); Potassium 3.7 mmol/L (3.5-5.1); Sodium 142 mmol/L (136-145)
[2020-01-31 11:57] VITALS: BP 162/112; PULSE 104; RESP 16; O2SAT 95
[2020-01-31 13:27] VITALS: BP 186/112; PULSE 107; RESP 14; O2SAT 97
== END 2020-01-31 13:28 | disposition home or self-care (01) ==
PROVIDERS: Emergency Provider Family Medicine; PCP Nurse Practitioner Family
DX: M54.89 Other dorsalgia (principal); Z79.84 Long term (current) use of oral hypoglycemic drugs; Z79.891 Long term (current) use of opiate analgesic; E11.9 Type 2 diabetes mellitus without complications; E78.5 Hyperlipidemia, unspecified; I10 Essential (primary) hypertension
CPT/HCPCS: 12345; 36416; 70450; 71101; 72040; 73010; 73030; 80048; 81003; 82962; 85025; 99282; 99283

== ENCOUNTER → 2020-02-29 09:07 | Outpatient (BNVA) | payer MEDICARE, SELFPAY | PROVIDERS: PCP Nurse Practitioner Family; Visit Provider Anesthesiology | DX: M47.816 Spondylosis without myelopathy or radiculopathy, lumbar region (principal); M54.42 Lumbago with sciatica, left side; M54.9 Dorsalgia, unspecified; F41.9 Anxiety disorder, unspecified; Z79.891 Long term (current) use of opiate analgesic | CPT/HCPCS: 99213 ==

== ENCOUNTER → 2020-03-21 15:15 | Outpatient (BNVA) | payer MEDICARE, SELFPAY | PROVIDERS: PCP Nurse Practitioner Family; Visit Provider Nurse Practitioner Family | DX: M25.572 Pain in left ankle and joints of left foot (principal); M25.472 Effusion, left ankle; I10 Essential (primary) hypertension; E78.5 Hyperlipidemia, unspecified; E11.65 Type 2 diabetes mellitus with hyperglycemia; N28.89 Other specified disorders of kidney and ureter; M54.9 Dorsalgia, unspecified; K21.9 Gastro-esophageal reflux disease without esophagitis; G47.00 Insomnia, unspecified; R29.6 Repeated falls; R25.1 Tremor, unspecified; M79.89 Other specified soft tissue disorders | CPT/HCPCS: 73610; 80053; 80061; 83036; 84443; 85025 ==

== ENCOUNTER → 2020-04-25 12:58 | Outpatient (BNVA) | payer MEDICARE, SELFPAY | PROVIDERS: PCP Nurse Practitioner Family; Visit Provider Nurse Practitioner | DX: M54.9 Dorsalgia, unspecified (principal); M47.816 Spondylosis without myelopathy or radiculopathy, lumbar region; F41.9 Anxiety disorder, unspecified; Z79.891 Long term (current) use of opiate analgesic | CPT/HCPCS: 99213 ==

== ENCOUNTER → 2020-06-21 13:43 | Outpatient (BNVA) | payer MEDICARE, SELFPAY | PROVIDERS: PCP Nurse Practitioner Family; Visit Provider Nurse Practitioner | DX: M54.9 Dorsalgia, unspecified (principal); M47.816 Spondylosis without myelopathy or radiculopathy, lumbar region; F41.9 Anxiety disorder, unspecified; Z79.891 Long term (current) use of opiate analgesic | CPT/HCPCS: 99213 ==

== ENCOUNTER → 2020-07-12 12:08 | Outpatient (BNVA) | payer MEDICARE, SELFPAY | PROVIDERS: PCP Nurse Practitioner Family; Visit Provider Nurse Practitioner | DX: E11.65 Type 2 diabetes mellitus with hyperglycemia (principal); E78.5 Hyperlipidemia, unspecified; I10 Essential (primary) hypertension; I48.92 Unspecified atrial flutter; N28.89 Other specified disorders of kidney and ureter; K21.9 Gastro-esophageal reflux disease without esophagitis; G47.00 Insomnia, unspecified | CPT/HCPCS: 80053; 80061; 83036; 84443 ==

== ENCOUNTER → 2020-07-25 13:23 | Outpatient (BNVA) | payer MEDICARE, SELFPAY | PROVIDERS: PCP Nurse Practitioner Family; Visit Provider Anesthesiology | DX: M54.9 Dorsalgia, unspecified (principal); M47.816 Spondylosis without myelopathy or radiculopathy, lumbar region; F41.9 Anxiety disorder, unspecified; Z79.891 Long term (current) use of opiate analgesic | CPT/HCPCS: 99213 ==

== ENCOUNTER → 2020-09-25 13:00 | Outpatient (BNVA) | payer MEDICARE, SELFPAY | PROVIDERS: PCP Nurse Practitioner; Visit Provider Nurse Practitioner | DX: M47.816 Spondylosis without myelopathy or radiculopathy, lumbar region (principal); M54.9 Dorsalgia, unspecified; Z79.891 Long term (current) use of opiate analgesic | CPT/HCPCS: 99213 ==

== ENCOUNTER 2020-10-04 10:42 | Emergency (ER) | payer MEDICARE, SELFPAY ==
[2020-10-04 10:52] VITALS: BP 157/98; PULSE 74; RESP 16; TEMP 37; O2SAT 94; BMI 26.9
[2020-10-04 11:42] LABS: Bacteria Urine 1+ /hpf; Bilirubin Urine Neg (Negative); Blood Urine Neg (Negative); Glucose Urine UA Norm (Normal); Ketones Urine Negative (Negative); Leukocyte Esterase Urine Negative (Negative); Nitrate Urine Negative (Negative); Protein Urine Neg (Negative); RBC Urine 0-4 /hpf (0-2); Urine Appearance SL Hazy (CLEAR); Urine Color Yellow (Yellow); Urobilinogen Urine Norm (Negative); WBC Urine 0-4 /hpf (0-5); pH Urine 5 (5-7)
--- NOTE | 2020-10-04 12:10 | ECG_ITS ---
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 Measurements Intervals [place] Rate: 72 P: 38 NC: 146 QRS: -17 QRSD: 146 T: -4 QT: 386 QTc: 423 Interpretive Statements SINUS RHYTHM INTRAVENTRICULAR CONDUCTION DELAY [130+ ms QRS DURATION] POSSIBLE ANTERIOR MYOCARDIAL INFARCTION [30 ms Q WAVE IN V3/V4, OR R < 0.2 mV IN V4], PROBABLY OLD No previous ECG available for comparison Electronically Signed On 10-04-2020 23:39:29 CDT by Zac Rodriguez M.D. [id number]
--- NOTE | 2020-10-04 12:12 | W.ED.GENADLT ---
HPI - General Adult General: Chief complaint: General Medical Stated complaint: MHE,HIP PAIN POST FALL Time Seen by Provider: 10/04/20 12:06 History of Present Illness: HPI narrative: This patient is a 74-year-old female who presents to the emergency department with complaint of visual hallucinations. Patient states past couple days she states she has been seeing birds tigers and other animals in the house. Patient states this seemed to be more prevalent. Patient states she is never had a history of hallucinations before. Patient does take multiple medications including chronic pain medications. Patient was recently started on Flexeril and has stopped that 2 days ago. When she started having these hallucinations and felt that maybe this was the cause. Patient did have a fall 2 days ago and some bruising on the right side however moves all extremities and has no complaints of pain at this time. Patient denies suicidal homicidal ideation. Patient states she also takes Cymbalta. 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 Will do medical evaluation treat as needed Onset (ago): day(s) Severity: moderate Associated symptoms: Deny chest pain, dyspnea, headache(s), nausea, rash, palpitations or vomiting Review of Systems General: Reports: 10 or more systems reviewed and unremarkable except in HPI and below Const: Denies: fever(s), chills, body aches or fatigue Eyes: Denies: change in vision or blurry vision ENMT: Denies: throat pain, hoarseness or mouth pain Card: Denies: chest pain, palpitations, irregular heart rhythm, edema, swelling of feet/ankles or lightheadedness Resp: Denies: dyspnea, productive cough, non-productive cough, wheezing or pain on inspiration GI: Denies: abdominal pain, nausea or vomiting : Denies: flank pain, difficulty voiding, dysuria, urinary frequency, urinary urgency or urinary hesitancy Musc: Denies: neck pain, back pain, extremity pain, extremity swelling, joint pain, joint swelling, joint redness, joint warmth or limited range of motion Skin/Breast: Denies: rash, pruritus, erythema or skin tenderness Neuro: Denies: headache(s), numbness in extremities or weakness in extremities Psych: Reports: visual hallucinations; Denies: anxiety, depression or suicidal ideation PFS ED PFSH: Medical History Acute bilateral low back pain without sciatica Anxiety Back pain with history of spinal surgery Chronic GERD DDD (degenerative disc disease), lumbar Diabetes mellitus with hyperglycemia, without long-term current use of insulin Dorsalgia, unspecified Encounter for long-term use of opiate analgesic Hyperlipemia Hypertension Insomnia Lumbar spondylosis Nodule of kidney Right 16mm seen [facility] [address] 2019 Opioid contract exists Surgical History History of adenectomy History of appendectomy History of back surgery 3 times on lumbar Hx of cholecystectomy Family History Mother CAD (coronary artery disease) Cancer Dementia Father CAD (coronary artery disease) Denies family history of Diabetes Clotting disorder Chronic kidney disease (CKD) Suicide Anesthesia complication Bleeding disorder Lung disease Stroke Social History Smoking and tobacco status: never smoked Second hand smoke exposure: No Smoking risk assessment/counseling performed?: No Alcohol intake: never Desire information about alcohol rehabilitation?: No Counseling given: No Desire information about substance/drug rehabilitation?: No Counseling given: No Adopted: No Caregiver/support person: No Lives independently: Yes Household members: spouse Housing: House Marital status: Current occupational status: disabled History of recent travel: No Current gender identity: Female Physical Exam Const: COMMON NORMALS: no acute distress, average body habitus, patient oriented x3, no limitations, healthy appearing, alert and well nourished HENMT: COMMON NORMALS: normocephalic, atraumatic, hearing grossly normal bilaterally, external ears normal, EAC's normal, TM's normal bilaterally, Normal external nose present, Normal nasal mucous membranes and turbinates present, moist oral mucous membranes, oropharynx normal, dentition normal and gingiva normal HEAD & SCALP: normocephalic and atraumatic NOSE: Normal external nose present and Normal nasal mucous membranes and turbinates present EXTERNAL EAR: Yes external ears normal EXTERNAL AUDITORY CANAL: EAC's normal TYMPANIC MEMBRANE: TM's normal bilaterally Neck/C-Spine: COMMON NORMALS: full ROM, no lymphadenopathy, supple, no meningeal signs, no JVD, Thyroid normal and No carotid bruits THYROID: Thyroid normal Chest: COMMONS NORMALS: normal inspection of the chest, normal palpation of entire chest wall, normal inspection of the breasts and normal palpation of the breasts Breast/axilla inspection: Yes normal inspection of the breasts BREAST/AXILLA PALPATION: Yes normal palpation of the breasts Resp: COMMON NORMALS: normal respiratory effort, No retractions, No use of accessory muscles, clear to auscultation bilaterally and percussion normal AUSCULTATION: clear to auscultation bilaterally PERCUSSION: percussion normal Cardio: COMMON NORMALS: no JVD, regular rate, regular rhythm, S1 normal heart sound present, S2 normal heart sound present, No gallops present (Cardio), No clicks present (Cardio), No murmurs present (Cardio), No rub (Cardio) and Peripheral pulses 2+ throughout RATE: regular rate RHYTHM: regular rhythm HEART SOUNDS: S1 normal heart sound present and S2 normal heart sound present PERIPHERAL PULSES: Peripheral pulses 2+ throughout GI: COMMON NORMALS: Normal to inspection, nondistended, normoactive bowel sounds present, Soft to palpation, non-tender, No hepatosplenomegaly present, no masses and no bruits PALPATION: Yes Soft to palpation and Yes No hepatosplenomegaly present Back/Pelvis: COMMON NORMALS: thoracic and lumbar spine normal to inspection, no thoracic nor lumbar tenderness, thoraco-lumbar ROM normal and straight leg raise negative bilaterally Extremity: COMMON NORMALS: normal to inspection, full ROM, capillary refill normal, no joint enlargement, no clubbing, cyanosis or edema, no calf tenderness and no pedal edema Neuro: COMMON NORMALS: patient oriented x3 SENSORIUM/ORIENTATION: Yes alert MENINGEAL SIGNS: Yes no meningeal signs Course Reevaluation(s): Reevaluation #1: Discussed at length with patient and family about concerns. Patient thinks that she might be developing some Alzheimer's or some form of dementia. States that her mother had the same. We did discuss at length with patient's visual hallucinations. Patient states this happens in the evening after waking to go to the bathroom. Patient takes Seroquel to help sleep. Patient states that they make no noises she just sees him around the house. On his hallucinations. Patient has no suicidal homicidal ideation. We did discuss at length patient takes 100 mg of Seroquel at night for sleep. We suggest reducing this by half and follow-up with primary care physician in 3 to 5 days. Patient states understanding. Time: 13:49 Vital Signs: Vital signs: Vital Signs Temperature 98.6 F 10/04/20 10:52 Pulse Rate 70 10/04/20 13:19 Respiratory Rate 16 10/04/20 13:19 Blood Pressure 159/101 10/04/20 13:19 Pulse Oximetry 95 10/04/20 13:19 MDM - General Adult MDM Narrative: Medical decision making narrative: This patient is a 74-year-old female who presents to the emergency department with complaint of visual hallucinations. Patient states past couple days she states she has been seeing birds tigers and other animals in the house. Patient states this seemed to be more prevalent. Patient states she is never had a history of hallucinations before. Patient does take multiple medications including chronic pain medications. Patient was recently started on Flexeril and has stopped that 2 days ago. When she started having these hallucinations and felt that maybe this was the cause. Patient did have a fall 2 days ago and some bruising on the right side however moves all extremities and has no complaints of pain at this time. Patient denies suicidal homicidal ideation. Patient states she also takes Cymbalta. 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 Discussed at length with patient and family about concerns. Patient thinks that she might be developing some Alzheimer's or some form of dementia. States that her mother had the same. We did discuss at length with patient's visual hallucinations. Patient states this happens in the evening after waking to go to the bathroom. Patient takes Seroquel to help sleep. Patient states that they make no noises she just sees him around the house. On his hallucinations. Patient has no suicidal homicidal ideation. We did discuss at length patient takes 100 mg of Seroquel at night for sleep. We suggest reducing this by half and follow-up with primary care physician in 3 to 5 days. Patient states understanding. Continue all medications at home other than your Seroquel. You need to reduce this medication by one half. Do not abruptly stop taking Seroquel because she will have withdrawal symptoms. Seroquel might be the cause of her visual hallucinations. Follow-up with your primary care physician for any further medication adjustments and/or dementia screening. Return to the emergency department symptoms fail to improve or worsen Medical Records: Attestation: I reviewed the patient's medical records. Lab Data: Attestation: I reviewed the patient's lab results. Labs: Lab Results 10/04/20 10/04/20 10/04/20 Range/Units 11:06 11:06 12:28 WBC 8.6 (4.0-10.0) 10^3/ uL RBC 4.36 (4.1-5.3) 10^6/u L Hgb 12.9 (11.5-15.3) g/dL Hct 40.5 (37.0-47.0) % MCV 92.9 (81-99) fL MCH 29.6 (28.0-34.0) pg MCHC 31.9 (30.0-36.0) g/dL RDW 13.4 (12.1-15.1) % Plt Count 314 (130-400) 10^3/c mm MPV 9.9 (7.4-10.4) fL Neut % (Auto) 53.2 % Lymph % (Auto) 37.8 % [place] % (Auto) 5.7 % Eos % (Auto) 2.4 % Baso % (Auto) 0.7 % Neut # (Auto) 4.58 (1.8-7.7) 10^3/u L Lymph # (Auto) 3.3 (0.8-4.8) 10^3/u L [place] # (Auto) 0.5 (0.2-0.9) 10^3/u L Eos # (Auto) 0.2 (0.0-0.8) 10^3/u L Baso # (Auto) 0.1 (0.0-0.1) 10^3/u L Nucleated RBC % (a uto) 0 % Nucleated RBCs # 0.0 /100WBC Sodium (136-145) mmol/L Potassium (3.5-5.1) mmol/L Chloride (98-107) mmol/L Carbon Dioxide (22-29) mmol/L Anion Gap (5-19) BUN (8-23) mg/dL Creatinine (0.5-0.9) mg/dL GFR Calculation Glucose (65-115) mg/dL Calculated Osmolal ity (285-295) mOsm/k g Calcium (8.5-10.5) mg/dL Total Bilirubin (0.15-1.2) mg/dL AST (0-32) U/L ALT (0-33) U/L Alkaline Phosphata se (35-105) IU/L Ammonia (11-51) umol/L Total Protein (6.6-8.7) g/dL Albumin (3.5-5.2) g/dL Globulin (1.3-4.6) g/dL Urine Color Yellow (Yellow) Urine Appearance Sl hazy (CLEAR) Urine pH 5 (5-7) Ur Specific Gravit y 1.020 (1.005-1.030) Urine Protein Neg (Negative) Urine Glucose (UA) Norm (Normal) Urine Ketones Negative (Negative) Urine Blood Neg (Negative) Urine Nitrate Negative (Negative) Urine Bilirubin Neg (Negative) Urine Urobilinogen Norm (Negative) mg/dL Ur Leukocyte Sis ase Negative (Negative) Urine RBC 0-4 H (0-2) /hpf Urine WBC 0-4 H (0-5) /hpf Ur Squamous Epith Cells 10-15 H (0-5) /hpf Amorphous Sediment Not Reportable Urine Bacteria 1+ H (NONE) /hpf Salicylates (3-10) mg/dL Urine Opiates Scre en Positive H (Negative) ng/mL Acetaminophen (10-30) ug/mL Ur Barbiturates Sc reen Negative (Negative) ng/mL Ur Phencyclidine S crn Negative (Negative) ng/mL Ur Amphetamines Sc reen Negative (Negative) ng/mL U Benzodiazepines Scrn Negative (Negative) ng/mL Urine Cocaine Scre en Negative (Negative) ng/mL U Marijuana (THC) Screen Negative (Negative) ng/mL Ethyl Alcohol (0-10) mg/dL 10/04/20 10/04/20 Range/Units 12:28 12:28 WBC (4.0-10.0) 10^3/ uL RBC (4.1-5.3) 10^6/u L Hgb (11.5-15.3) g/dL Hct (37.0-47.0) % MCV (81-99) fL MCH (28.0-34.0) pg MCHC (30.0-36.0) g/dL RDW (12.1-15.1) % Plt Count (130-400) 10^3/c mm MPV (7.4-10.4) fL Neut % (Auto) % Lymph % (Auto) % [place] % (Auto) % Eos % (Auto) % Baso % (Auto) % Neut # (Auto) (1.8-7.7) 10^3/u L Lymph # (Auto) (0.8-4.8) 10^3/u L [place] # (Auto) (0.2-0.9) 10^3/u L Eos # (Auto) (0.0-0.8) 10^3/u L Baso # (Auto) (0.0-0.1) 10^3/u L Nucleated RBC % (a uto) % Nucleated RBCs # /100WBC Sodium 140 (136-145) mmol/L Potassium 4.3 (3.5-5.1) mmol/L Chloride 103 (98-107) mmol/L Carbon Dioxide 27 (22-29) mmol/L Anion Gap 14.3 (5-19) BUN 12 (8-23) mg/dL Creatinine 0.8 (0.5-0.9) mg/dL GFR Calculation Not Reportable Glucose 166 H (65-115) mg/dL Calculated Osmolal ity 294 (285-295) mOsm/k g Calcium 8.7 (8.5-10.5) mg/dL Total Bilirubin 0.4 (0.15-1.2) mg/dL AST 18 (0-32) U/L ALT 19 (0-33) U/L Alkaline Phosphata se 78 (35-105) IU/L Ammonia 17 (11-51) umol/L Total Protein 6.4 L (6.6-8.7) g/dL Albumin 4.0 (3.5-5.2) g/dL Globulin 2.4 (1.3-4.6) g/dL Urine Color (Yellow) Urine Appearance (CLEAR) Urine pH (5-7) Ur Specific Gravit y (1.005-1.030) Urine Protein (Negative) Urine Glucose (UA) (Normal) Urine Ketones (Negative) Urine Blood (Negative) Urine Nitrate (Negative) Urine Bilirubin (Negative) Urine Urobilinogen (Negative) mg/dL Ur Leukocyte Sis ase (Negative) Urine RBC (0-2) /hpf Urine WBC (0-5) /hpf Ur Squamous Epith Cells (0-5) /hpf Amorphous Sediment Urine Bacteria (NONE) /hpf Salicylates < 0.3 L (3-10) mg/dL Urine Opiates Scre en (Negative) ng/mL Acetaminophen < 5.0 L (10-30) ug/mL Ur Barbiturates Sc reen (Negative) ng/mL Ur Phencyclidine S crn (Negative) ng/mL Ur Amphetamines Sc reen (Negative) ng/mL U Benzodiazepines Scrn (Negative) ng/mL Urine Cocaine Scre en (Negative) ng/mL U Marijuana (THC) Screen (Negative) ng/mL Ethyl Alcohol < 10 (0-10) mg/dL Imaging Data^: CT Head: Attestation: I personally reviewed and interpreted this imaging study as follows: Radiologist's impression: IMPRESSION: 1. No acute intracranial hemorrhage or edema. 2. Moderate atrophy and chronic ischemic disease. No progression since 01/31/2020. EKG Data^: EKG 1: Attestation: I personally reviewed and interpreted this EKG as follows: EKG interpretation date: 10/04/20 EKG interpretation time: 12:35 Prior EKG tracings: not available for review Interpretation: Sinus rhythm with an interventricular conduction delay heart rate 70 nonspecific EKG Computer generated interpretation: Head CT 10/04/20 12:18 IMPRESSION: 1. No acute intracranial hemorrhage or edema. 2. Moderate atrophy and chronic ischemic disease. No progression since 01/31/2020. Discharge Plan Discharge Patient Disposition: Home Clinical Impression: Hallucinations, visual, Medication side effect Condition: Stable Prescriptions: No Action (DME) Blood Glucose Test Strip See Rx Instructions .ROUTE .MEDSUPPLY Qty: 100 RF: 11 (DME) blood-glucose meter [Blood Glucose Monitoring] Kit See Rx Instructions .ROUTE .MEDSUPPLY Qty: 1 RF: 0 (DME) lancets [BD Ultra Fine Lancets] 33 gauge misc See Rx Instructions .ROUTE .MEDSUPPLY Qty: 100 RF: 11 (DME) blood pressure monitor [Blood Pressure Kit] Kit See Rx Instructions .ROUTE .MEDSUPPLY Qty: 1 RF: 0 amlodipine 5 mg tablet 5 mg PO DAILY 30 Days Qty: 30 RF: 5 Eliquis 5 mg tablet 5 mg PO BID 30 Days Qty: 60 RF: 5 atorvastatin 80 mg tablet 80 mg PO DAILY 30 Days Qty: 30 RF: 2 metformin 500 mg tablet extended release 24 hr 500 mg PO BID Qty: 60 RF: 2 metoprolol succinate 100 mg tablet extended release 24 hr 100 mg PO DAILY 30 Days Qty: 30 RF: 2 pantoprazole 40 mg tablet,delayed release (DR/EC) 40 mg PO DAILY 30 Days Qty: 30 RF: 2 quetiapine 100 mg tablet 100 mg PO DAILY 30 Days Qty: 30 RF: 2 cyclobenzaprine 10 mg tablet 10 mg PO TID Qty: 90 RF: 1 duloxetine 60 mg capsule, delayed rel sprinkle 60 mg PO BID 30 Days Qty: 60 RF: 1 hydrocodone-acetaminophen 10-325 mg tablet 1 tab PO Q6H PRN (Reason: pain) 30 Days Qty: 120 RF: 0 lisinopril 40 mg tablet 40 mg PO DAILY Qty: 30 RF: 2 multivitamin [Multiple Vitamins] Tablet 1 tab PO DAILY RF: 0 Discharge Orders: Discharge ED (Routine); Ordered 10/04/20 Ordered By: Hernán Vazquez Referrals: Cooper Chavez, AUDIO PRODUCTION ENGINEER-C [Primary Care Provider] - Patient Instructions: Opioid Safety Coding Level of Care Code ED [employer] Pumper for Jeremiahg Fwd Exam Comprehensive
--- NOTE | 2020-10-04 12:18 | CT_ITS ---
WS: [id number] CT HEAD NONCONTRAST HISTORY: HEADACHE TECHNIQUE: Contiguous axial imaging performed through the brain in 2.5 mm imaging. Bone and soft tiss ue windows. Sagittal and coronal reformats reviewed. All CT scans at [facility] use at ast one of these dose optimization techniques: automated exposure control; mA and/or kV adjustment pe r patient size (includes targeted exams where dose is matched to clinical indication); or iterative r econstruction. DLP: 788.82 mGy.cm COMPARISON: 01/31/2020 No acute intracranial hemorrhage, midline shift or mass effect. Moderate atrophy and chronic microvascular ischemic changes. Small lacunar infarct in the RIGHT caud ate nucleus. Ventricles: Mild enlargement of ventricles and extra-axial spaces. Paranasal sinuses: As visualized are clear. Mastoid air cells: Well pneumatized. Calvarium and scalp: Skull is intact with no soft tissue edema or swelling. CT/CT head wo con* [id number] IMPRESSION: 1. No acute intracranial hemorrhage or edema. 2. Moderate atrophy and chronic ischemic disease. No progression since 020.
[2020-10-04 12:34] LABS: Basophils # 0.1 10^3/uL (0.0-0.1); Basophils % 0.7 %; Eosinophils # 0.2 10^3/uL (0.0-0.8); Eosinophils % 2.4 %; Hematocrit 40.5 % (37.0-47.0); Hemoglobin 12.9 g/dL (11.5-15.3); Lymphocytes # 3.3 10^3/uL (0.8-4.8); Lymphocytes % 37.8 %; Mean Corpuscular HGB Conc 31.9 g/dL (30.0-36.0); Mean Corpuscular Hemoglobin 29.6 pg (28.0-34.0); Mean Corpuscular Volume 92.9 fL (81-99); Mean Platelet Volume 9.9 fL (7.4-10.4); Monocytes # 0.5 10^3/uL (0.2-0.9); Monocytes % 5.7 %; Neutrophils # 4.58 10^3/uL (1.8-7.7); Neutrophils % 53.2 %; Nucleated Red Blood Cells % 0 %; Platelet Count 314 10^3/cmm (130-400); Red Blood Count 4.36 10^6/uL (4.1-5.3); Red Cell Distribution Width 13.4 % (12.1-15.1); White Blood Count 8.6 10^3/uL (4.0-10.0)
--- NOTE | 2020-10-04 12:36 | PC.NURSE ---
pt ambulated to the bathroom at this time
[2020-10-04] MEDS: sodium chloride 0.9% 500 ML IV (12:38)
[2020-10-04 12:58] VITALS: BP 169/109; PULSE 78; RESP 18; O2SAT 98
[2020-10-04 13:02] LABS: Ammonia 17 umol/L (11-51)
[2020-10-04 13:03] LABS: Alanine Aminotransferase 19 U/L (0-33); Alkaline Phosphatase 78 IU/L (35-105); Chloride 103 mmol/L (98-107); Sodium 140 mmol/L (136-145)
[2020-10-04 13:19] VITALS: BP 159/101; PULSE 70; RESP 16; O2SAT 95
[2020-10-04 13:40] LABS: Anion Gap 14.3 (5-19); Aspartate Amino Transferase 18 U/L (0-32); Blood Urea Nitrogen 12 mg/dL (8-23); Calcium 8.7 mg/dL (8.5-10.5); Carbon Dioxide 27 mmol/L (22-29); Globulin 2.4 g/dL (1.3-4.6); Glucose 166 mg/dL (65-115); Osmolality Calculated 294 mOsm/kg (285-295); Total Bilirubin 0.4 mg/dL (0.15-1.2); Total Protein 6.4 g/dL (6.6-8.7)
[2020-10-04 13:41] LABS: Acetaminophen < 5.0 ug/mL (10-30); Alcohol Level < 10 mg/dL (0-10); Potassium 4.3 mmol/L (3.5-5.1); Salicylate < 0.3 mg/dL (3-10)
[2020-10-04 13:45] LABS: Amphetamines Screen Urine Negative (Negative); Barbiturates Screen Urine Negative (Negative); Benzodiazepines Screen Urine Negative (Negative); Cocaine Screen Urine Negative (Negative); Opiate Screen Urine Positive (Negative); PCP Screen Urine Negative (Negative); THC Screen Urine Negative (Negative)
[2020-10-04 14:00] VITALS: BP 164/94; PULSE 69; RESP 18; O2SAT 97
== END 2020-10-04 14:11 | disposition home or self-care (01) ==
PROVIDERS: Family Medicine; Emergency Provider Emergency Medicine; PCP Nurse Practitioner
DX: R44.1 Visual hallucinations (principal); T50.905A Adverse effect of unspecified drugs, medicaments and biological substances, initial encounter; Z79.01 Long term (current) use of anticoagulants; Z79.84 Long term (current) use of oral hypoglycemic drugs; E11.9 Type 2 diabetes mellitus without complications; E78.5 Hyperlipidemia, unspecified; I10 Essential (primary) hypertension; Z79.899 Other long term (current) drug therapy
CPT/HCPCS: 70450; 80053; 80306; 80307; 81001; 82140; 85025; 93005; 96360; 99284; J7040

== ENCOUNTER → 2020-11-08 15:27 | Outpatient (BNVA) | payer MEDICARE, SELFPAY | PROVIDERS: PCP Nurse Practitioner; Visit Provider Nurse Practitioner | DX: I10 Essential (primary) hypertension (principal); I48.92 Unspecified atrial flutter; E78.5 Hyperlipidemia, unspecified; E11.65 Type 2 diabetes mellitus with hyperglycemia; K21.9 Gastro-esophageal reflux disease without esophagitis; G47.00 Insomnia, unspecified; B02.9 Zoster without complications | CPT/HCPCS: 80053; 83036; 83735; 84443 ==

== ENCOUNTER → 2020-11-15 13:15 | Outpatient (BNVA) | payer MEDICARE, SELFPAY | PROVIDERS: PCP Nurse Practitioner; Visit Provider Nurse Practitioner | DX: M47.816 Spondylosis without myelopathy or radiculopathy, lumbar region (principal); F41.9 Anxiety disorder, unspecified; Z79.891 Long term (current) use of opiate analgesic | CPT/HCPCS: 99213 ==

== ENCOUNTER → 2021-02-01 13:04 | Outpatient (BNVA) | payer MEDICARE, SELFPAY | PROVIDERS: PCP Nurse Practitioner; Visit Provider Anesthesiology | DX: M47.816 Spondylosis without myelopathy or radiculopathy, lumbar region (principal); F41.9 Anxiety disorder, unspecified; Z91.81 History of falling; Z79.891 Long term (current) use of opiate analgesic | CPT/HCPCS: 99213 ==

== ENCOUNTER → 2021-03-07 10:33 | Outpatient (BNVA) | payer MEDICARE, SELFPAY | PROVIDERS: PCP Nurse Practitioner; Visit Provider Nurse Practitioner | DX: E11.65 Type 2 diabetes mellitus with hyperglycemia (principal); E55.9 Vitamin D deficiency, unspecified | CPT/HCPCS: 80053; 80061; 81000; 82306; 83036; 84443 ==

== ENCOUNTER → 2021-03-29 10:17 | Outpatient (BNVA) | payer MEDICARE, SELFPAY | PROVIDERS: PCP Nurse Practitioner; Visit Provider Anesthesiology | DX: M47.816 Spondylosis without myelopathy or radiculopathy, lumbar region (principal); F41.9 Anxiety disorder, unspecified; Z79.891 Long term (current) use of opiate analgesic | CPT/HCPCS: 99213 ==

== ENCOUNTER 2021-05-28 13:58 | Outpatient (CLI) | payer MEDICARE, SELFPAY ==
--- NOTE | 2021-05-28 14:31 | XR_ITS ---
WS: [id number] RIGHT SHOULDER: 3 VIEW(S) TECHNIQUE: Internal and external rotation with Y view. HISTORY: M25.511 - Pain in right shoulder COMPARISON: 01/31/2020 No fracture or dislocation or soft tissue abnormality. Lobulated calcific density adjacent to the superior RIGHT humeral head. Calcific deposit measures 1.6 cm in diameter. Calcifications extend over the superior greater tuberosity on the external rotation. No fracture. XR/XR shoulder RT min 2V* [id number] IMPRESSION: Calcific tendinitis RIGHT rotator cuff.
--- NOTE | 2021-05-28 14:31 | XRR_ITS ---
PROCEDURE INFORMATION: Exam: XR Cervical Spine Exam date and time: 05/28/2021 2:31 PM Age: 75 years old Clinical indication: Pain and injury or trauma; Fall; Blunt trauma; Neck pain; Injury date: 2 weeks ago; Injury details: Fell x 2 wks ago. RT shoulder pain radiates to RT elbow pain x 4 days. Lots of swelling around RT clavicle; Prior surgery; Surgery type: L 4&5; Additional info: M54.2 - cervicalgia TECHNIQUE: Imaging protocol: XR of the cervical spine. Views: 2 or 3 views. COMPARISON: CR XR cervical spine 3V* [id number] 01/31/2020 7:13 AM FINDINGS: Bones/joints: No acute fracture. Normal alignment. Moderate DJD centered within the lower cervical spine. Soft tissues: Unremarkable. XR/XR cervical spine 3V* [id number] IMPRESSION: No acute findings. Moderate DJD centered within the lower cervical spine.
== END 2021-05-28 13:59 | disposition home or self-care (01) ==
PROVIDERS: PCP Nurse Practitioner; Visit Provider Nurse Practitioner Family
DX: M65.221 Calcific tendinitis, right upper arm (principal); M47.812 Spondylosis without myelopathy or radiculopathy, cervical region; W19.XXXA Unspecified fall, initial encounter; Y92.009 Unspecified place in unspecified non-institutional (private) residence as the place of occurrence of the external cause
CPT/HCPCS: 72040; 73030

== ENCOUNTER → 2021-07-01 15:02 | Outpatient (BNVA) | payer OTHER, SELFPAY | PROVIDERS: PCP Nurse Practitioner; Visit Provider Nurse Practitioner | DX: E55.9 Vitamin D deficiency, unspecified (principal); E11.65 Type 2 diabetes mellitus with hyperglycemia | CPT/HCPCS: 80053; 82306; 83036; 84443; 85025 ==

== ENCOUNTER 2021-08-14 15:31 | Outpatient (CLI) | payer MEDICARE, SELFPAY ==
--- NOTE | 2021-08-14 15:44 | XR_ITS ---
WS: [id number] Exam: XR lumbar spine min 4V [id number] Date/Time of Exam: 08/14/2021 3:44 PM Reason For Exam: LOW BACK PAIN There is interbody fusion of the spine at the L4-5 disc level with pedicle screws and posterior rods. Decompression laminectomy noted at this level. A disc spacer is noted at L4-5. Degenerative vacuum d isc at L5-S1. Degenerative disc change at L2-3 and L3-4. No acute fracture or malalignment. Monisha flores XR/XR lumbar spine min 4V [id number] IMPRESSION: 1. Interbody fusion of the spine at L4-5 and good alignment. 2. No fracture or dislocation. 3. Moderate degenerative changes and osteopenia.
== END 2021-08-14 15:32 | disposition home or self-care (01) ==
PROVIDERS: PCP Nurse Practitioner; Visit Provider Nurse Practitioner
DX: M54.51 Vertebrogenic low back pain (principal); M47.816 Spondylosis without myelopathy or radiculopathy, lumbar region; M85.88 Other specified disorders of bone density and structure, other site
CPT/HCPCS: 72110

== ENCOUNTER → 2021-10-21 10:46 | Outpatient (BNVA) | payer MEDICARE, SELFPAY | PROVIDERS: PCP Nurse Practitioner; Visit Provider Nurse Practitioner | DX: E78.5 Hyperlipidemia, unspecified (principal); M54.9 Dorsalgia, unspecified; F41.9 Anxiety disorder, unspecified; I10 Essential (primary) hypertension; E11.65 Type 2 diabetes mellitus with hyperglycemia; I48.92 Unspecified atrial flutter; K21.9 Gastro-esophageal reflux disease without esophagitis; E55.9 Vitamin D deficiency, unspecified | CPT/HCPCS: 80053; 80061; 82306; 83036 ==

== ENCOUNTER → 2021-11-18 12:07 | Outpatient (BNVA) | payer MEDICARE, SELFPAY | PROVIDERS: PCP Nurse Practitioner; Visit Provider Nurse Practitioner Family | DX: R30.0 Dysuria (principal) | CPT/HCPCS: 81000; 87077; 87086; 87184 ==

== ENCOUNTER → 2022-01-07 14:26 | Outpatient (BNVA) | payer MEDICARE, SELFPAY | PROVIDERS: PCP Nurse Practitioner; Visit Provider Nurse Practitioner | DX: Z20.822 Contact with and (suspected) exposure to COVID-19 (principal) | CPT/HCPCS: 87426 ==

== ENCOUNTER → 2022-02-10 10:46 | Outpatient (BNVA) | payer MEDICARE, SELFPAY | PROVIDERS: PCP Nurse Practitioner; Visit Provider Nurse Practitioner | DX: E11.65 Type 2 diabetes mellitus with hyperglycemia (principal) | CPT/HCPCS: 80053; 80061; 83036; 85025 ==

== ENCOUNTER → 2022-03-06 16:09 | Outpatient (BNVA) | payer MEDICARE, MEDICAID, SELFPAY | PROVIDERS: PCP Nurse Practitioner; Visit Provider Emergency Medicine | DX: R39.9 Unspecified symptoms and signs involving the genitourinary system (principal) | CPT/HCPCS: 81003; 87086 ==

== ENCOUNTER → 2022-06-05 15:34 | Outpatient (BNVA) | payer MEDICARE, MEDICAID, SELFPAY | PROVIDERS: PCP Nurse Practitioner; Visit Provider Nurse Practitioner | DX: E11.65 Type 2 diabetes mellitus with hyperglycemia (principal) | CPT/HCPCS: 80053; 81003; 82043; 83036; 85025; 87086 ==

== ENCOUNTER → 2022-09-19 10:02 | Outpatient (BNVA) | payer MEDICARE, MEDICAID, SELFPAY | PROVIDERS: PCP Nurse Practitioner; Visit Provider Nurse Practitioner | DX: F41.8 Other specified anxiety disorders (principal); E11.65 Type 2 diabetes mellitus with hyperglycemia | CPT/HCPCS: 80053; 80061; 81000; 82043; 83036; 84443 ==

== ENCOUNTER 2022-09-29 10:02 | Emergency (ER) | payer MEDICARE, MEDICAID, SELFPAY ==
[2022-09-29] VITALS (10 sets, daily range): BP systolic 170–192; BP diastolic 92–123; PULSE 68–89; RESP 18; TEMP 37.1–37.7; O2SAT 97–98; BMI 26.9
--- NOTE | 2022-09-29 10:44 | XRR_ITS ---
PROCEDURE INFORMATION: Exam: XR Chest Exam date and time: 09/29/2022 11:00 AM Age: 76 years old Clinical indication: Other: Low o2; Additional info: AMS; Low o2 TECHNIQUE: Imaging protocol: Radiologic exam of the chest. Views: 1 view. COMPARISON: CR XR ribs LT mn 3V w CXR1V [id number] 01/31/2020 7:26 AM FINDINGS: Lungs: There is left perihilar and upper lobe interstitial prominence. The right lung is relatively clear. There is unchanged elevation of the right hemidiaphragm. Pleural spaces: Unremarkable. No pleural effusion. No pneumothorax. Heart/Mediastinum: Unremarkable. No cardiomegaly. Bones/joints: The bones are osteopenic with mild biconvex deviation of the thoracic spine. XR/XR chest 1V portable [id number] IMPRESSION: Left-sided pneumonia.
--- NOTE | 2022-09-29 10:45 | ED_ITS ---
HPI - Altered Mental Status General: Chief Complaint: Weakness Stated Complaint: generalized weakness Time Seen by Provider: 09/29/22 10:06 Source: patient, EMS and other (daughter) Mode of arrival: EMS Limitations: no limitations History of Present Illness: Patient is a 76-year-old female who arrives via EMS for evaluation of altered mental status. Patient is currently residing with her daughter who arrived shortly after her arrival and provides much of the history although patient seems to be a fairly good historian at the moment. According to daughter over the past 4 to 5 days patient has developed confusion and altered mental status. Daughter states normally she is very active and cooks, cleans, takes care of herself solely but over the past several days she has not been able to do any of this. Daughter states her speech is not slurred but does not seem to make sense at times. She states it seems like her mother has completely forgotten how to care for herself. Reports she has had episodes of fecal/urine incontinence which is abnormal for her. She states her stool this morning was dark/black in color. Upon arrival she is satting in the low 90s. Denies SOB/cough. Daughter states she has been running fevers intermittently of up to 101. Patient states she is not hurting anywhere except for her back. She states this is chronic for her and she normally takes hydrocodone for pain. Daughter does states she was recently placed on new medications (Abilify, Flomax, Rybelsus) by her primary care provider for anxiety/depression. She states patient's mental status seemed to decline after starting the Abilify. MD complaint: altered mental status and confusion Onset (ago): day(s) Timing confirmed by: family member Severity: moderate Consistency of symptoms: Waxing and Waning Context: change in medication Associated symptoms: Reports no associated symptoms Review of Systems Const: Reports: fever(s) and fatigue; Denies: chills or body aches Eyes: Denies: change in vision, blurry vision or photophobia ENMT: Denies: throat pain, odynophagia, ear or mastoid pain, nasal discharge, nasal congestion, post nasal drip or sinus pain Card: Denies: chest pain Resp: Denies: dyspnea, productive cough, non-productive cough, wheezing, hemoptysis or chest congestion GI: Reports: fecal incontinence and melena; Denies: abdominal pain, nausea, vomiting, diarrhea, rectal pain, rectal swelling, rectal itching, mucus in stool or white/light colored stool : Reports: urinary incontinence; Denies: flank pain, difficulty voiding, dysuria, urinary frequency, urinary urgency or urinary hesitancy Musc: Reports: back pain (chronic); Denies: neck pain, extremity pain, extremity swelling, joint pain or joint swelling Skin/Breast: Denies: rash Neuro: Reports: confusion, behavioral changes and difficulty communicating thoughts; Denies: headache(s), numbness in extremities, weakness in extremities, sensory changes, frequent falls, dizziness, vertigo, Slurred speech present or seizure- like activity PFSH ED PFSH: Medical History Acute bilateral low back pain without sciatica Anxiety with depression Back pain with history of spinal surgery Chronic GERD DDD (degenerative disc disease), lumbar Diabetes mellitus with hyperglycemia, without long-term current use of insulin Dorsalgia, unspecified Encounter for long-term use of opiate analgesic Hyperlipemia Hypertension Insomnia Lumbar spondylosis Nodule of kidney Right 16mm seen [facility] [address] 2019 Opioid contract exists Vitamin D deficiency Surgical History History of adenectomy History of appendectomy History of back surgery 3 times on lumbar Hx of cholecystectomy Hx of hysterectomy Family History Mother CAD (coronary artery disease) Cancer Dementia Father CAD (coronary artery disease) Denies family history of Diabetes Clotting disorder Chronic kidney disease (CKD) Suicide Anesthesia complication Bleeding disorder Lung disease Stroke Social History Smoking and tobacco status: never smoked Second hand smoke exposure: No Smoking risk assessment/counseling performed?: No Alcohol intake: never Desire information about alcohol rehabilitation?: No Counseling given: No Substance/Drug Use: never Desire information about substance/drug rehabilitation?: No Counseling given: No Adopted: No Caregiver/support person: No Lives independently: Yes Household members: spouse Housing: House Marital status: Current occupational status: disabled Do you think of yourself as: Straight/Heterosexual Current gender identity: Female Physical Exam Const: COMMON NORMALS: no acute distress, average body habitus, patient oriented x3, no limitations, healthy appearing, alert and well nourished GENE RAL APPEARANCE: cooperative ORIENTATION/CONSCIOUSNESS: Yes awake, Yes oriented to person, Yes oriented to place, Yes oriented to time and Yes confused (at times) OTHER: daughter states mental status currently seems to be better than what is has been over the past few days HENMT: COMMON NORMALS: normocephalic and atraumatic HEAD & SCALP: normal to inspection, normocephalic and atraumatic THROAT: posterior oropharynx normal Eye: GENERAL EYE: appearance normal, both eyes and all related structures and normal light reflex DIRECT OPHTHALMOSCOPY: Yes normal light reflex Neck/C-Spine: COMMON NORMALS: full ROM, no lymphadenopathy and no meningeal signs GENERAL: Yes normal visual inspection Resp: COMMON NORMALS: normal respiratory effort and clear to auscultation bilaterally AUSCULTATION: clear to auscultation bilaterally OTHER: satting around 91% on RA Cardio: COMMON NORMALS: regular rate and regular rhythm RATE: regular rate RHYTHM: regular rhythm GI: COMMON NORMALS: Normal to inspection, nondistended, normoactive bowel sounds present, Soft to palpation, non-tender, No hepatosplenomegaly present and no masses INSPECTION: Yes normal to inspection AUSCULTATION: Yes normoactive bowel sounds PALPATION: Yes Soft to palpation, No Tenderness to palpation present (GI), No Guarding due to palpation present (GI), No Rigid due to palpation and Yes No hepatosplenomegaly present RECTAL EXAM: heme negative stool : COMMON NORMALS: Yes no CVA tenderness BLADDER/KIDNEY EXAM: Yes no CVA tenderness Back/Pelvis: COMMON NORMALS: no CVA tenderness THORACIC SPINE/UPPER BACK: Yes normal to inspection, No thoracic spinal tenderness, No paraspinal muscle tenderness and No paraspinal muscle spasm LUMBAR SPINE/LOWER BACK: Yes lumbar spinal tenderness (reports this is chronic and at baseline), No paraspinal muscle tenderness and No paraspinal muscle spasm PELVIS: Yes buttocks normal SACROILIAC JOINTS: Yes SI joints normal SACRUM: no tenderness COCCYX: no tenderness Extremity: COMMON NORMALS: normal to inspection GENERAL: Yes normal exam except as noted Neuro: ANTON COMA SCALE: document GCS findings Anton coma scale eye opening: Spontaneous Henderson coma scale verbal response: Orientated Anton coma scale motor response: Obey commands Henderson coma scale total score: 15 COMMON NORMALS: patient oriented x3, CN's II-XII intact bilaterally, moves all extremities, no focal motor deficits and no sensory deficits noted SENSORIUM/ORIENTATION: Yes alert, Yes oriented to person, Yes oriented to place and Yes oriented to time MENINGEAL SIGNS: Yes no meningeal signs Skin: COMMON NORMALS: no rashes or lesions noted GENERAL SKIN EXAM: no r ashes or lesions noted Course Vital Signs: Vital signs: Vital Signs Temperature 98.8 F 09/29/22 13:44 Pulse Rate 89 09/29/22 13:44 Respiratory Rate 18 09/29/22 13:44 Blood Pressure 172/96 09/29/22 13:44 Pulse Oximetry 97 09/29/22 13:44 Oxygen Delivery Me thod Room Air 09/29/22 13:30 Oxygen Flow Rate 2 09/29/22 13:00 MDM - Altered Mental Status Medical Decision Making Patient is a 76-year-old female here along with her daughter for concerns of confusion and altered mental status over the past 4 to 5 days or so. Daughter states symptoms seemed to have started after starting new medications from her primary care provider including Abilify, Flomax, and Rybelsus. Upon arrival patient has mild confusion at times but for the most part is a fairly good historian and is alert and oriented. Her only physical complaint is her chronic back pain. She states she did not take her hydrocodone this morning. Patient was initially satting in the low 90s upon arrival and was placed on 2 L of oxygen. She was subsequently taken off and monitored and O2 sat staying roughly 94 to 96%. She did have a low-grade fever of 99.8. She was hypertensive (did not take her blood pressure medications this morning-doesn't check BPs at home so not sure what is normal for her). Blood work overall is nonactionable. Her UA does not look overly suspicious for UTI. This will be cultured. CXR showing a left-sided pneumonia. Respiratory panel is negative. CT head negative. Stool hemoccult (collected due to concern for dark stool this morning) was negative. Discussed hospitalization for treatment of pneumonia and altered mental status but patient states she would like to go home. Daughter states she feels comfortable continuing to care for her at home. She was given IV Azithromycin/Rocephin prior to discharge and will be placed on Augmentin/Azithromycin at home for treatment of CAP. Will have her discontinue Abilify as daughter states confusion seem to start around initiation of this med ication. Certainly infection/pneumonia in an elderly individual can cause altered mental as well. Strict return to ED precautions given. Otherwise I would like them to follow-up with her primary care provider later this week. Lab Data 09/29/22 10:56 09/29/22 10:56 Radiology Impressions Chest X-Ray 09/29/22 10:44 IMPRESSION: Left-sided pneumonia. Head CT 09/29/22 10:54 IMPRESSION: 1. No acute intracranial hemorrhage or edema. 2. Stable noncontrast head CT since 10/04/2020. Laboratory Results WBC 11.4 10^3/uL (4.0-10.0) H 09/29/22 10:56 RBC 4.19 10^6/uL (4.1-5.3) 09/29/22 10:56 Hgb 11.2 g/dL (11.5-15.3) L 09/29/22 10:56 Hct 36.5 % (37.0-47.0) L 09/29/22 10:56 MCV 87.1 fl (81-99) 09/29/22 10:56 MCH 26.7 pg (28.0-34.0) L 09/29/22 10:56 MCHC 30.7 g/dL (30.0-36.0) 09/29/22 10:56 RDW 14.0 % (12.1-15.1) 09/29/22 10:56 Plt Count 393 10^3/cmm (130-400) 09/29/22 10:56 MPV 10.3 fL (7.4-10.4) 09/29/22 10:56 Neut % (Auto) 73.7 % 09/29/22 10:56 Lymph % (Auto) 17.0 % 09/29/22 10:56 [place] % (Auto) 8.5 % 09/29/22 10:56 Eos % (Auto) 0.1 % 09/29/22 10:56 Baso % (Auto) 0.3 % 09/29/22 10:56 Neut # (Auto) 8.42 10^3/uL (1.8-7.7) H 09/29/22 10:56 Lymph # (Auto) 1.9 10^3/uL (0.8-4.8) 09/29/22 10:56 [place] # (Auto) 1.0 10^3/uL (0.2-0.9) H 09/29/22 10:56 Eos # (Auto) 0.0 10^3/uL (0.0-0.8) 09/29/22 10:56 Baso # (Auto) 0.0 10^3/uL (0.0-0.1) 09/29/22 10:56 Nucleated RBC % (auto) 0 % 09/29/22 10:56 Nucleated RBCs # 0.0 /100WBC 09/29/22 10:56 Sodium 132 mmol/L (136-145) L 09/29/22 10:56 Potassium 4.1 mmol/L (3.5-5.1) 09/29/22 10:56 Chloride 97 mmol/L (98-107) L 09/29/22 10:56 Carbon Dioxide 22 mmol/L (22-29) 09/29/22 10:56 Anion Gap 17.1 (5-19) 09/29/22 10:56 BUN 15 mg/dL (8-23) 09/29/22 10:56 Creatinine 0.9 mg/dL (0.5-0.9) 09/29/22 10:56 GFR Calculation Not Reportable 09/29/22 10:56 Glucose 201 mg/dL (65-115) H 09/29/22 10:56 Calculated Osmolality 281 mOsm/kg (285-295) L 09/29/22 10:56 Lactic Acid 1.0 mmol/L (0.5-2.2) 09/29/22 10:56 Calcium 9.5 mg/dL (8.5-10.5) 09/29/22 10:56 Total Bilirubin 0.4 mg/dL (0.15-1.2) 09/29/22 10:56 AST 10 U/L (0-32) 09/29/22 10:56 ALT 8 U/L (0-33) 09/29/22 10:56 Alkaline Phosphatase 84 U/L (35-105) 09/29/22 10:56 Total Protein 7.0 g/dL (6.6-8.7) 09/29/22 10:56 Albumin 3.1 g/dL (3.5-5.2) L 09/29/22 10:56 Globulin 3.9 g/dL (1.3-4.6) 09/29/22 10:56 Procalcitonin 0.13 ng/mL (0-0.5) 09/29/22 10:56 Urine Color Yellow (Yellow) 09/29/22 12:49 Urine Appearance Clear (CLEAR) 09/29/22 12:49 Urine pH 5 (5-7) 09/29/22 12:49 Ur Specific [place] 1.020 (1.005-1.030) 09/29/22 12:49 Urine Protein 2+ (Negative) H 09/29/22 12:49 Urine Glucose (UA) 2+ (Normal) H 09/29/22 12:49 Urine Ketones Negative (Negative) 09/29/22 12:49 Urine Blood Neg (Negative) 09/29/22 12:49 Urine Nitrate Negative (Negative) 09/29/22 12:49 Urine Bilirubin Neg (Negative) 09/29/22 12:49 Urine Urobilinogen Norm mg/dL (Negative) 09/29/22 12:49 Ur Leukocyte Esterase Negative (Negative) 09/29/22 12:49 Urine RBC 0-4 /hpf (0-2) H 09/29/22 12:49 Urine WBC 5-10 /hpf (0-5) H 09/29/22 12:49 Ur Squamous Epith Cells 0-4 /hpf (0-5) H 09/29/22 12:49 Amorphous Sediment 1+ /hpf 09/29/22 12:49 Urine Bacteria 2+ /hpf (NONE) H 09/29/22 12:49 Nasal Influ A H1 2008 PCR Not detected (NOT DETECT) 09/29/22 11:10 Adenovirus (PCR) Not detected (NOT DETECT) 09/29/22 11:10 C. pneumoniae DNA (PCR) Not detected (NOT DETECT) 09/29/22 11:10 Coronavirus 229E (PCR) Not detected (NOT DETECT) 09/29/22 11:10 Human Metapneumovir PCR Not detected (NOT DETECT) 09/29/22 11:10 Influenza A (H1) PCR Not detected (NOT DETECT) 09/29/22 11:10 Influenza A (H3) PCR Not detected (NOT DETECT) 09/29/22 11:10 Influenza Type A (PCR) Not detected (NOT DETECT) 09/29/22 11:10 Influenza Type B (PCR) Not detected (NOT DETECT) 09/29/22 11:10 M. pneumoniae (PCR) Not detected (NOT DETECT) 09/29/22 11:10 Parainfluenza 1 (PCR) Not detected (NOT DETECT) 09/29/22 11:10 Parainfluenza 2 (PCR) Not detected (NOT DETECT) 09/29/22 11:10 Parainfluenza 3 (PCR) Not detected (NOT DETECT) 09/29/22 11:10 Parainfluenza 4 (PCR) Not detected (NOT DETECT) 09/29/22 11:10 RSV Type A (PCR) Not detected (NOT DETECT) 09/29/22 11:10 RSV Type B (PCR) Not detected (NOT DETECT) 09/29/22 11:10 Entero/Rhino (PCR) Not detected (NOT DETECT) 09/29/22 11:10 SARS-CoV-2 (PCR) Not detected (NOT DETECT) 09/29/22 11:10 Discharge Plan Discharge Patient Disposition: Home Clinical Impression: Left lower lobe pneumonia Qualifiers: Pneumonia type: due to unspecified organism Qualified Code(s): J18.9 - Pneumonia, unspecified organism Condition: Stable Prescriptions: New azithromycin 250 mg tablet See Rx Instructions .ROUTE .COMPLEX Qty: 6 0RF Rx Instructions: take 500 mg today (day 1), then 250 mg for 4 days (days 2-5) amoxicillin-pot clavulanate 875-125 mg tablet 1 tab PO BID Qty: 14 0RF No Action (DME) blood pressure monitor [Blood Pressure Kit] Kit See Rx Instructions .ROUTE .MEDSUPPLY Qty: 1 0RF Rx Instructions: As directed loperamide [Anti-Diarrheal (loperamide)] 2 mg tablet 2 mg PO Q6H PRN (Reason: Diarrhea) amlodipine 5 mg tablet 5 mg PO DAILY Qty: 30 2RF atorvastatin 80 mg tablet 80 mg PO DAILY 30 Days Qty: 30 2RF doxepin 10 mg capsule 10 mg PO TID Qty: 90 2RF duloxetine 60 mg capsule, delayed rel sprinkle 60 mg PO BID 30 Days Qty: 60 2RF lisinopril 40 mg tablet 40 mg PO DAILY Qty: 30 2RF magnesium oxide 400 mg magnesium capsule 400 mg PO BID Qty: 60 2RF Rx Instructions: she does not swollen pill well. Would like capsules. metformin 500 mg tablet extended release 24 hr 1,000 mg PO BID Qty: 120 2RF pantoprazole 40 mg tablet,delayed release (DR/EC) 40 mg PO DAILY 30 Days Qty: 30 2RF Rx Instructions: use probiotic and mag ox Xarelto 15 mg tablet 15 mg PO DAILY Qty: 30 2RF Rx Instructions: must administer with evening meal Rybelsus 3 mg tablet 3 mg PO DAILY 30 Days Qty: 30 0RF (DME) blood-glucose meter [True Metrix Glucose Meter] Kit See Rx Instructions .Route Qty: 1 0RF Rx Instructions: As directed (DME) True Metrix Glucose Test Strip Strip See Rx Instructions .Route Qty: 100 5RF Rx Instructions: 1 strip daily (DME) lancets [BD Ultra Fine Lancets] 33 gauge misc See Rx Instructions .ROUTE .MEDSUPPLY Qty: 100 11RF Rx Instructions: 1 daily multivitamin [Multiple Vitamins] Tablet 1 tab PO DAILY tizanidine 2 mg tablet 2 mg PO BEDTIME Toprol XL 100 mg tablet extended release 24 hr 100 mg PO BEDTIME Flomax 0.4 mg capsule 0.4 mg PO BEDTIME Discharge Orders: Discharge ED (Routine); Ordered 09/29/22 Ordered By: Silva Vaughn Referrals: Cooper Chavez, KISHORC [Primary Care Provider] - Patient Instructions: Bacterial Pneumonia (DC), Pneumonia (ED) Activity Restrictions/Additional Instructions: DISCONTINUE ABILITY as this could be causing some of patient's confusion. She was also found to have a left-sided pneumonia. Certainly any form of infection in elderly patients can cause confusion/altered mental status. She had voiced that she does not wish to be hospitalized at this time therefore we are we will place her on antibiotics at home for coverage of pneumonia. You need to bring patient back to the emergency department for worsening altered mental status, confusion, worsening fevers, shortness of breath or difficulty breathing, or any other concerns you may have. Otherwise I would like her to follow-up with her primary care provider later this week. Coding Level of Care Code ED Training Personnel Supervisor for Lali Oliver
--- NOTE | 2022-09-29 10:54 | CT_ITS ---
WS: [id number] CT HEAD NONCONTRAST HISTORY: AMS TECHNIQUE: Contiguous axial imaging performed through the brain in 2.5 mm imaging. Bone and soft tiss ue windows. Sagittal and coronal reformats reviewed. All CT scans at [facility] use at least one of these dose optimization techniques: automated exposure control; mA and/or kV adjustment per pa tient size (includes targeted exams where dose is matched to clinical indication); or iterative recon struction. DLP: 985.19 mGy.cm COMPARISON: 10/04/2020 No acute intracranial hemorrhage, midline shift or mass effect. Moderate atrophy and small vessel ischemic disease. No interval change. No new infarcts. Ventricles: Normal size with no hydrocephalus. No inferior displacement of the cerebellar tonsils. Paranasal sinuses: As visualized are clear. Mastoid air cells: Well pneumatized. Calvarium and scalp: Skull is intact with no soft tissue edema or swelling. CT/CT head wo con* [id number] IMPRESSION: 1. No acute intracranial hemorrhage or edema. 2. Stable noncontrast head CT since 10/04/2020.
[2022-09-29] MEDS: sodium chloride 0.9% 1,000 ML 999 ML IV (11:14)
[2022-09-29 11:19] LABS: Basophils % 0.3 %; Eosinophils % 0.1 %; Hematocrit 36.5 % (37.0-47.0); Hemoglobin 11.2 g/dL (11.5-15.3); Lymphocytes # 1.9 10^3/uL (0.8-4.8); Mean Corpuscular HGB Conc 30.7 g/dL (30.0-36.0); Mean Corpuscular Hemoglobin 26.7 pg (28.0-34.0); Mean Corpuscular Volume 87.1 fl (81-99); Mean Platelet Volume 10.3 fL (7.4-10.4); Monocytes % 8.5 %; Neutrophils # 8.42 10^3/uL (1.8-7.7); Neutrophils % 73.7 %; Nucleated Red Blood Cells % 0 %; Platelet Count 393 10^3/cmm (130-400); Red Blood Count 4.19 10^6/uL (4.1-5.3); White Blood Count 11.4 10^3/uL (4.0-10.0)
[2022-09-29 11:49] LABS: Procalcitonin 0.13 ng/mL (0-0.5)
[2022-09-29 12:00] LABS: Alanine Aminotransferase 8 U/L (0-33); Albumin Level 3.1 g/dL (3.5-5.2); Alkaline Phosphatase 84 U/L (35-105); Anion Gap 17.1 (5-19); Aspartate Amino Transferase 10 U/L (0-32); Blood Urea Nitrogen 15 mg/dL (8-23); Calcium 9.5 mg/dL (8.5-10.5); Carbon Dioxide 22 mmol/L (22-29); Chloride 97 mmol/L (98-107); Globulin 3.9 g/dL (1.3-4.6); Glucose 201 mg/dL (65-115); Osmolality Calculated 281 mOsm/kg (285-295); Potassium 4.1 mmol/L (3.5-5.1); Sodium 132 mmol/L (136-145); Total Bilirubin 0.4 mg/dL (0.15-1.2)
[2022-09-29] MEDS: hyDRALAzine 20 mg/mL INJ 1 mL 10 MG IVP (12:53)
[2022-09-29] MEDS: cefTRIAXone 1,000 MG in sodium chloride 0.9% (plus) 50 ML 100 MG IV (12:54)
[2022-09-29] MEDS: azithromycin 500 MG in sodium chloride 0.9% 250 ML 250 MG IV (12:58)
[2022-09-29] MEDS: amlodipine 5 mg Tablet PO (12:59)
[2022-09-29] MEDS: lisinopril 20 mg Tablet 40 MG PO (12:59)
[2022-09-29 13:12] LABS: Add Urine Culture? No; Add Urine Microscopic? YES; Amorphous Sediment Urine 1+ /hpf; Bacteria Urine 2+ /hpf; Bilirubin Urine Neg (Negative); Blood Urine Neg (Negative); Glucose Urine UA 2+ (Normal); Ketones Urine Negative (Negative); Leukocyte Esterase Urine Negative (Negative); Nitrate Urine Negative (Negative); Protein Urine 2+ (Negative); RBC Urine 0-4 /hpf (0-2); Squamous Epithelial Cell Urine 0-4 /hpf (0-5); Urine Appearance Clear (CLEAR); Urine Color Yellow (Yellow); Urobilinogen Urine Norm (Negative); pH Urine 5 (5-7)
[2022-09-29 13:26] LABS: Adenovirus Not Detected (NOT DETECT); Chlamydia Pneumoniae Not Detected (NOT DETECT); Coronavirus 229E,HKU1,NL63,OC4 Not Detected (NOT DETECT); Human Metapneumovirus Not Detected (NOT DETECT); Human Rhinovirus/Enterovirus Not Detected (NOT DETECT); Influenza A Not Detected (NOT DETECT); Influenza A H1 Not Detected (NOT DETECT); Influenza A H1-2009 Not Detected (NOT DETECT); Influenza A H3 Not Detected (NOT DETECT); Influenza B Not Detected (NOT DETECT); Mycoplasma Pneumoniae Not Detected (NOT DETECT); Parainfluenza Virus Type 1 Not Detected (NOT DETECT); Parainfluenza Virus Type 2 Not Detected (NOT DETECT); Parainfluenza Virus Type 3 Not Detected (NOT DETECT); Parainfluenza Virus Type 4 Not Detected (NOT DETECT); Respiratory Syncytial Virus A Not Detected (NOT DETECT); Respiratory Syncytial Virus B Not Detected (NOT DETECT); SARS-COV-2 Not Detected (NOT DETECT)
[2022-09-29] MEDS: morphine 4 mg/mL SDV 1 mL IVP (13:29)
[2022-09-29] MEDS: ondansetron 2 mg/ML SDV 2 mL 4 MG IVP (13:29)
== END 2022-09-29 14:45 | disposition home or self-care (01) ==
PROVIDERS: Emergency Provider Physician Assistant; PCP Nurse Practitioner
DX: J18.9 Pneumonia, unspecified organism (principal); M54.9 Dorsalgia, unspecified; G89.29 Other chronic pain; E11.9 Type 2 diabetes mellitus without complications; E78.5 Hyperlipidemia, unspecified; I10 Essential (primary) hypertension; Z79.899 Other long term (current) drug therapy; Z79.01 Long term (current) use of anticoagulants; Z79.84 Long term (current) use of oral hypoglycemic drugs
CPT/HCPCS: 36415; 70450; 71045; 80053; 81001; 83605; 84145; 85025; 87086; 87486; 87581; 87633; 96365; 96375; 99285; 99291; J0360; J0456; J0696; J2270; J2405; J7030; J7050

== ENCOUNTER 2023-01-24 09:00 | Observation (INO) | payer MEDICARE, MEDICAID, SELFPAY ==
[2023-01-24] VITALS (19 sets, daily range): BP systolic 147–224; BP diastolic 93–129; PULSE 86–109; RESP 14–29; TEMP 36.8–36.9; O2SAT 90–96; BMI 25.9
--- NOTE | 2023-01-24 09:06 | XRR_ITS ---
PROCEDURE INFORMATION: Exam: XR Chest Exam date and time: 01/24/2023 9:15 AM Age: 77 years old Clinical indication: Dyspnea; Additional info: Dyspnea/cough TECHNIQUE: Imaging protocol: Radiologic exam of the chest. Views: 1 view. COMPARISON: CR XR chest 1V portable [id number] 09/29/2022 11:00 AM FINDINGS: Lungs: There appears to be opacity at the left lung base which may represent effusion and/or parenchymal disease. Pleural spaces: No pneumothorax. Heart/Mediastinum: Unremarkable. No cardiomegaly. Diaphragm: There is elevation of the right hemidiaphragm. Bones/joints: The bones are osteopenic with degenerative change. XR/XR chest 1V portable [id number] IMPRESSION: Opacity, left lung base may represent effusion and/or parenchymal disease. Elevation of the right hemidiaphragm unchanged from the prior study.
--- NOTE | 2023-01-24 09:06 | CTR_ITS ---
PROCEDURE INFORMATION: Exam: CT Head Without Contrast Exam date and time: 01/24/2023 9:18 AM Age: 77 years old Clinical indication: Injury or trauma; Fall; Blunt trauma (contusions or hematomas); Additional info: Trauma oral anticoagulations TECHNIQUE: Imaging protocol: Computed tomography of the head without contrast. Radiation optimization: All CT scans at this facility use at least one of these dose optimization techniques: automated exposure control; mA and/or kV adjustment per patient size (includes targeted exams where dose is matched to clinical indication); or iterative reconstruction. REPORTING DATA: Count of CT and Cardiac NM exams in prior 12 months: This patient has received [address] and 0 known cardiac nuclear medicine studies in the 12 months prior to the current study. COMPARISON: CT head wo con* [id number] 09/29/2022 11:42 AM RADIATION DOSE METRICS: Total DLP (mGy-cm): 975.68 FINDINGS: Brain: There is age-appropriate frontotemporal volume loss. There is no mass effect, midline shift, acute hemorrhage, extra-axial fluid collection or acute lobar infarct. Patchy hemispheric white matter hypodensity likely reflects chronic microvascular ischemic change. 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 Cerebral ventricles: No ventriculomegaly. Paranasal sinuses: Visualized sinuses are unremarkable. No fluid levels. Mastoid air cells: Visualized mastoid air cells are well aerated. Bones/joints: Unremarkable. No acute fracture. Soft tissues: Unremarkable. CT/CT head wo con* [id number] IMPRESSION: No acute intracranial process.
--- NOTE | 2023-01-24 09:12 | ED_ITS ---
HPI - Weakness General: Chief complaint: Weakness Stated complaint: WEAKNESS; FALL Time Seen by Provider: 01/24/23 09:04 Source: patient Mode of arrival: EMS History of Present Illness: 77-year-old female lives at home alone brought in by EMS after a fall last night around 7 PM. Is been on the floor for nearly 12 hours. She did hit her head when she fell. She never had full loss of consciousness but states she was quite stunned. She is on oral anticoagulants. She was unable to get up until someone found her this morning and called EMS. She denies any chest pain or shortness of breath generalized neck and back pain which she has chronic pain as well. She denies any chest pain or tightness. She has had multiple falls at home recently she has a home health nurse that comes twice a week but nobody who is with her regularly. She admits she is having difficult time maintaining by herself at home. Complaint: generalized weakness and difficulty walking Onset (ago): hour(s) Location: generalized Relieving factors: none Exacerbating factors: none Associated symptoms: Denies chest pain, chills, confusion, melena, decreased appetite, diaphoresis, dysuria, easy bruising, fever(s), headache(s), myalgias, nausea, rash, short of breath, syncope or vomiting Review of Systems Const: Reports: fatigue and malaise; Denies: fever(s), chills or diaphoresis Card: Denies: chest pain or syncope Resp: Denies: dyspnea GI: Denies: abdominal pain, nausea, vomiting or melena : Denies: dysuria, urinary frequency or urinary urgency Musc: Reports: back pain; Denies: neck pain Skin/Breast: Denies: rash Neuro: Reports: difficulty walking and frequent falls; Denies: headache(s) or confusion Sim/Lymph: Denies: easy bruising PFSH ED PFSH: Medical History Acute bilateral low back pain without sciatica Anxiety with depression Back pain with history of spinal surgery Chronic GERD DDD (degenerative disc disease), lumbar Diabetes mellitus with hyperglycemia, without long-term current use of insulin Dorsalgia, unspecified Encounter for long-term use of opiate analgesic Hyperlipemia Hypertension Insomnia Lumbar spondylosis Nodule of kidney Right 16mm seen [facility] [address] 2019 Opioid contract exists Vitamin D deficiency Surgical History History of adenectomy History of appendectomy History of back surgery 3 times on lumbar Hx of cholecystectomy Hx of hysterectomy Family History Mother CAD (coronary artery disease) Cancer Dementia Father CAD (coronary artery disease) Denies family history of Diabetes Clotting disorder Chronic kidney disease (CKD) Suicide Anesthesia complication Bleeding disorder Lung disease Stroke Social History (Updated 01/24/23 @ 14:46 by Gerard Blackwood MD) Smoking and tobacco/nicotine status: never used tobacco/nicotine Second hand smoke exposure: No Alcohol intake: never Substance/Drug Use: never Adopted: No Caregiver/support person: No Lives independently: Yes Household members: spouse Housing: House Marital status: / Current occupational status: disabled Do you think of yourself as: Straight/Heterosexual Current gender identity: Female Physical Exam Const: COMMON NORMALS: no acute distress GENERAL APPEARANCE: cooperative and comfortable ORIENTATION/CONSCIOUSNESS: Yes awake, Yes oriented to person, Yes oriented to place and Yes oriented to time HENMT: COMMON NORMALS: normocephalic, atraumatic and hearing grossly normal bilaterally HEAD & SCALP: normocephalic and atraumatic Resp: COMMON NORMALS: normal respiratory effort, No retractions, No use of accessory muscles and clear to auscultation bilaterally AUSCULTATION: clear to auscultation bilaterally Cardio: COMMON NORMALS: regular rate, regular rhythm and No murmurs present (Cardio) RATE: regular rate RHYTHM: regular rhythm GI: COMMON NORMALS: Soft to palpation and No hepatosplenomegaly present AUSCULTATION: Yes normoactive bowel sounds PALPATION: Yes Soft to palpation, No Tenderness to palpation present (GI), No Guarding due to palpation present (GI) and Yes No hepatosplenomegaly present Extremity: COMMON NORMALS: normal to inspection, capillary refill normal, no clubbing, cyanosis or edema, no calf tenderness and no pedal edema Neuro: SENSORIUM/ORIENTATION: Yes oriented to person, Yes oriented to place and Yes oriented to time Skin: COMMON NORMALS: no rashes or lesions noted GENERAL SKIN EXAM: no rashes or lesions noted Course Vital Signs: Vital signs: Vital Signs Temperature 98.4 F 01/24/23 16:00 Pulse Rate 100 01/24/23 16:00 Respiratory Rate 17 01/24/23 16:00 Blood Pressure 172/119 01/24/23 16:00 Pulse Oximetry 95 01/24/23 16:00 Oxygen Delivery Me thod Room Air 01/24/23 16:00 MDM - Weakness Medical Decision Making Accelerated hypertension and generalized weakness patient is been falling multiple times and unable to manage herself at home. She given her regular home medication as well as hydralazine had persistent hypertension discussed with h ospitalist orders written Medical Records I reviewed the patient's medical records. Lab Data I reviewed the patient's lab results. 01/24/23 09:38 01/24/23 09:38 Radiology Impressions Chest X-Ray 01/24/23 09:06 IMPRESSION: Opacity, left lung base may represent effusion and/or parenchymal disease. Elevation of the right hemidiaphragm unchanged from the prior study. Head CT 01/24/23 09:06 IMPRESSION: No acute intracranial process. Abdomen/Pelvis CT 01/24/23 11:14 IMPRESSION: No radiopaque obstructive urinary calculus or overt hydronephrosis is appreciated. There is however some bilateral nonspecific hydroureter with mild appearance inferiorly and could be phase related. This can also be seen with processes including non radiopaque, passed calculus as well as urinary tract inflammation. COMMENTS: Consistent with the [employer]'s Incidental Findings Committee white paper (J Am Prince Radiol 2018): Any incidental renal lesion less than 1 cm or classified as too small to characterize, or any incidental cystic renal lesion characterized as simple-appearing, is likely benign. No follow-up imaging is recommended for these lesions per consensus recommendations based on imaging criteria. Laboratory Results WBC 11.31 10^3/uL (3.29-11.43) 01/24/23 09:38 RBC 4.63 10^6/uL (3.85-5.65) 01/24/23 09:38 Hgb 12.40 g/dL (11.27-16.99) 01/24/23 09:38 Hct 40.9 % (36-47) 01/24/23 09:38 MCV 88.3 fl (85-98) 01/24/23 09:38 MCH 26.8 pg (27-33) L 01/24/23 09:38 MCHC 30.3 g/dL (30-55) 01/24/23 09:38 RDW 14.6 % (12.1-15.1) 01/24/23 09:38 Plt Count 351 10^3/cmm (157-399) 01/24/23 09:38 MPV 9.7 fL (7.4-10.4) 01/24/23 09:38 Neut % (Auto) 68.3 % 01/24/23 09:38 Lymph % (Auto) 23.3 % 01/24/23 09:38 [place] % (Auto) 6.6 % 01/24/23 09:38 Eos % (Auto) 0.9 % 01/24/23 09:38 Baso % (Auto) 0.6 % 01/24/23 09:38 Neut # (Auto) 7.73 10^3/uL (1.8-7.7) H 01/24/23 09:38 Lymph # (Auto) 2.6 10^3/uL (0.8-4.8) 01/24/23 09:38 [place] # (Auto) 0.8 10^3/uL (0.2-0.9) 01/24/23 09:38 Eos # (Auto) 0.1 10^3/uL (0.0-0.8) 01/24/23 09:38 Baso # (Auto) 0.1 10^3/uL (0.0-0.1) 01/24/23 09:38 Nucleated RBC % (auto) 0 % 01/24/23 09:38 Nucleated RBCs # 0.0 /100WBC 01/24/23 09:38 Sodium 138 mmol/L (136-145) 01/24/23 09:38 Potassium 3.7 mmol/L (3.5-5.1) 01/24/23 09:38 Chloride 101 mmol/L (98-107) 01/24/23 09:38 Carbon Dioxide 23 mmol/L (22-29) 01/24/23 09:38 Anion Gap 17.7 (5-19) 01/24/23 09:38 BUN 15 mg/dL (8-23) 01/24/23 09:38 Creatinine 0.7 mg/dL (0.5-0.9) 01/24/23 09:38 GFR Calculation Not Reportable 01/24/23 09:38 Glucose 188 mg/dL (65-115) H 01/24/23 09:38 Calculated Osmolality 292 mOsm/kg (285-295) 01/24/23 09:38 Calcium 9.8 mg/dL (8.5-10.5) 01/24/23 09:38 Iron 40 ug/dL (37-145) 01/24/23 09:38 TIBC 364 mcg/dl 01/24/23 09:38 % Saturation 10.9 % (20-50) L 01/24/23 09:38 Unsat Iron Binding 324 ug/dL (112-347) 01/24/23 09:38 Total Bilirubin 0.9 mg/dL (0.15-1.2) 01/24/23 09:38 AST 13 U/L (0-32) 01/24/23 09:38 ALT 11 U/L (0-33) 01/24/23 09:38 Alkaline Phosphatase 67 U/L (35-105) 01/24/23 09:38 Creatine Kinase 46 U/L (26-192) 01/24/23 09:38 Troponin T Baseline 12 ng/L (0-10) H 01/24/23 09:38 Total Protein 6.5 g/dL (6.6-8.7) L 01/24/23 09:38 Albumin 4.3 g/dL (3.5-5.2) 01/24/23 09:38 Globulin 2.2 g/dL (1.3-4.6) 01/24/23 09:38 Vitamin B12 216 pg/mL (232-1245) L 01/24/23 09:38 Urine Color Yellow (Yellow) 01/24/23 09:50 Urine Appearance Hazy (CLEAR) A 01/24/23 09:50 Urine pH 5 (5-7) 01/24/23 09:50 Ur Specific [place] 1.010 (1.005-1.030) 01/24/23 09:50 Urine Protein Neg (Negative) 01/24/23 09:50 Urine Glucose (UA) Norm (Normal) 01/24/23 09:50 Urine Ketones 1+ (Negative) H 01/24/23 09:50 Urine Blood 3+ (Negative) H 01/24/23 09:50 Urine Nitrate Negative (Negative) 01/24/23 09:50 Urine Bilirubin Neg (Negative) 01/24/23 09:50 Urine Urobilinogen Norm mg/dL (Negative) 01/24/23 09:50 Ur Leukocyte Esterase 1+ (Negative) H 01/24/23 09:50 Urine RBC 10-15 /hpf (0-2) H 01/24/23 09:50 Urine WBC 5-10 /hpf (0-5) H 01/24/23 09:50 Ur Squamous Epith Cells 0-4 /hpf (0-5) H 01/24/23 09:50 Amorphous Sediment 1+ /hpf 01/24/23 09:50 Urine Bacteria 3+ /hpf (NONE) H 01/24/23 09:50 All radiology interpretation(s) finalized by discharge Discharge Plan Discharge Patient Disposition: Admitted As Inpatient Admit Provider: Gerard Blackwood Clinical Impression: Fall, Weakness, Accelerated hypertension Condition: Stable Coding Level of Care Code ED [employer]
--- NOTE | 2023-01-24 09:27 | ECG_ITS ---
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 Measurements Intervals [place] Rate: 103 P: 48 ND: 163 QRS: -7 QRSD: 115 T: -5 QT: 330 QTc: 434 Interpretive Statements SINUS TACHYCARDIA POSSIBLE LEFT ATRIAL ENLARGEMENT [-0.1mV P-WAVE IN V1/V2] RIGHT BUNDLE BRANCH BLOCK [120+ ms QRS DURATION, UPRIGHT V1, 40+ ms S IN I/aVL/V4/V5/V6] MODERATE T-WAVE ABNORMALITY, CONSIDER LATERAL ISCHEMIA [-0.1+ mV T-WAVE IN I/aVL/V5/V6] Compared to ECG 10/04/2020 12:35:34 Right bundle-branch block now present T-wave abnormality now present Possible ischemia now present Sinus rhythm no longer present Intraventricular conduction delay no longer present Myocardial infarct finding no longer present Electronically Signed On 01-24-2023 10:09:08 CDT by Kenzie Solis M.D. [id number]
[2023-01-24 09:46] LABS: Basophils # 0.1 10^3/uL (0.0-0.1); Basophils % 0.6 %; Eosinophils # 0.1 10^3/uL (0.0-0.8); Eosinophils % 0.9 %; Hematocrit 40.9 % (36-47); Lymphocytes # 2.6 10^3/uL (0.8-4.8); Lymphocytes % 23.3 %; Mean Corpuscular HGB Conc 30.3 g/dL (30-55); Mean Corpuscular Hemoglobin 26.8 pg (27-33); Mean Corpuscular Volume 88.3 fl (85-98); Mean Platelet Volume 9.7 fL (7.4-10.4); Monocytes # 0.8 10^3/uL (0.2-0.9); Monocytes % 6.6 %; Neutrophils # 7.73 10^3/uL (1.8-7.7); Neutrophils % 68.3 %; Nucleated Red Blood Cells % 0 %; Platelet Count 351 10^3/cmm (157-399); Red Blood Count 4.63 10^6/uL (3.85-5.65); Red Cell Distribution Width 14.6 % (12.1-15.1); White Blood Count 11.31 10^3/uL (3.29-11.43)
[2023-01-24 10:07] LABS: Troponin(5th) Baseline 12 ng/L (0-10)
[2023-01-24 10:08] LABS: Alanine Aminotransferase 11 U/L (0-33); Albumin Level 4.3 g/dL (3.5-5.2); Alkaline Phosphatase 67 U/L (35-105); Anion Gap 17.7 (5-19); Aspartate Amino Transferase 13 U/L (0-32); Blood Urea Nitrogen 15 mg/dL (8-23); Calcium 9.8 mg/dL (8.5-10.5); Carbon Dioxide 23 mmol/L (22-29); Chloride 101 mmol/L (98-107); Creatine Phosphokinase 46 U/L (26-192); Globulin 2.2 g/dL (1.3-4.6); Glucose 188 mg/dL (65-115); Osmolality Calculated 292 mOsm/kg (285-295); Potassium 3.7 mmol/L (3.5-5.1); Sodium 138 mmol/L (136-145); Total Bilirubin 0.9 mg/dL (0.15-1.2); Total Protein 6.5 g/dL (6.6-8.7)
[2023-01-24] MEDS: hyDRALAzine 20 mg/mL INJ 1 mL 10 MG IVP ×3 (10:14→21:30)
[2023-01-24] MEDS: amlodipine 5 mg Tablet PO ×2 (10:14→16:58)
[2023-01-24] MEDS: sodium chloride 0.9% 1,000 ML 999 ML IV (10:19)
[2023-01-24 10:56] LABS: Add Urine Microscopic? YES; Bilirubin Urine Neg (Negative); Blood Urine 3+ (Negative); Glucose Urine UA Norm (Normal); Ketones Urine 1+ (Negative); Leukocyte Esterase Urine 1+ (Negative); Nitrate Urine Negative (Negative); Protein Urine Neg (Negative); Urine Appearance Hazy (CLEAR); Urine Color Yellow (Yellow); Urobilinogen Urine Norm (Negative); pH Urine 5 (5-7)
[2023-01-24 10:58] LABS: Squamous Epithelial Cell Urine 0-4 /hpf (0-5)
[2023-01-24 10:59] LABS: Add Urine Culture? Yes; Amorphous Sediment Urine 1+ /hpf; Bacteria Urine 3+ /hpf
--- NOTE | 2023-01-24 11:07 | ECG_ITS ---
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 Measurements Intervals [place] Rate: 111 P: 51 NE: 164 QRS: -14 QRSD: 117 T: 21 QT: 417 QTc: 567 Interpretive Statements SINUS TACHYCARDIA POSSIBLE LEFT ATRIAL ENLARGEMENT [-0.1mV P-WAVE IN V1/V2] RIGHT BUNDLE BRANCH BLOCK [120+ ms QRS DURATION, UPRIGHT V1, 40+ ms S IN I/aVL/V4/V5/V6] ST DEPRESSION, CONSIDER SUBENDOCARDIAL INJURY [0.1+ mV ST DEPRESSION] Compared to ECG 01/24/2023 09:27:01 ST (T wave) deviation now present T-wave abnormality no longer present Possible ischemia no longer present Electronically Signed On 01-24-2023 17:53:22 CDT by Kenzie Solis M.D. [id number]
--- NOTE | 2023-01-24 11:14 | CTR_ITS ---
PROCEDURE INFORMATION: Exam: CT Abdomen And Pelvis Without Contrast Exam date and time: 01/24/2023 11:56 AM Age: 77 years old Clinical indication: Other: Hematuria.No history of trauma or recent surgery is provided. TECHNIQUE: Imaging protocol: Computed tomography of the abdomen and pelvis without contrast. 796image(s) are provided. Radiation optimization: All CT scans at this facility use at least one of these dose optimization techniques: automated exposure control; mA and/or kV adjustment per patient size (includes targeted exams where dose is matched to clinical indication); or iterative reconstruction. Other technique: Axial images are available with sagittal and coronal reconstruction views. Automated dose exposure control is utilized. The DLP is 595.78. REPORTING DATA: Count of CT and Cardiac NM exams in prior 12 months: This patient has received [address] and 0 known cardiac nuclear medicine studies in the 12 months prior to the current study. COMPARISON: 1. CT abdomen pelvis w con* [id number] 09/27/2019 1:[address] abdomen pelvis wo/w [id number] 12/06/2018 9:[address] chest wo con [id number] 09/06/2019 1:31 PM RADIATION DOSE METRICS: Total DLP (mGy-cm): 595.78 FINDINGS: Lungs: No lobar consolidation is appreciated. There is some subsegmental atelectasis versus post inflammatory similar reticulonodular scarring demonstrated. Heart: No significant pericardial fluid collection is appreciated. Coronary arteries: There are dense coronary arterial calcifications present. Diaphragm: There is slight asymmetric right hemidiaphragm elevation. Liver: The hepatic parenchyma is relatively homogeneous. Gallbladder and bile ducts: Cholecystectomy clips are present. Pancreas: No pancreatic ductal dilatation or calculus is currently appreciated. Spleen: There are some splenic calcifications present. Adrenal glands: Unremarkable. Kidneys and ureters: There is some nonspecific perinephric stranding bilaterally. There is some fluid dense mass of the left inferior renal pole of about 1.5 cm. There is a history of a calcified mass of the right renal midpole level. This appears similar overall in size and configuration measuring around 1.7 x 1.2 cm in diameter. There does appear to be some slight distal hydroureter bilaterally although could also be phase related with no discrete radiopaque internal filling defects currently appreciated. No overt hydronephrosis or radiopaque obstructive calculus is currently appreciated. Stomach and bowel: There is a moderate sliding-type hiatal hernia demonstrated with gastroesophageal fold thickening. Appendix: No evidence of appendicitis. Intraperitoneal space: No free air or free fluid collections are appreciated. Vasculature: No interval abdominal aortic saccular aneurysmal dilatation is appreciated with some chronic overall atherosclerotic related change. There are some dense aortic branch vessel calcifications for example most pronounced of the renal arteries right more so than left. There is similar slightly ectatic appearance of the thoracic aorta included portions. Lymph nodes: There are some borderline enlarged para-aortic and mesenteric lymph nodes as well as periportal similar overall. Urinary bladder: The bladder contours appear unremarkable overall on these noncontrast views. Reproductive: There are hysterectomy changes present. Bones/joints: Osseous alignment is maintained.No interval displaced fracture or dislocation is appreciated.There is slightly decreased bone mineralization overall. There are chronic appearing surgical changes of the lumbar spine similar in distribution. There is some chronic lumbar disc degenerative appearance overall. Soft tissues: No radiopaque foreign body or subcutaneous emphysema is appreciated. There are some chronic breast soft tissue calcifications bilaterally. Other findings: There is some motion artifact present. No other significant interval changes are appreciated. CT/CT kidney stone [id number] IMPRESSION: No radiopaque obstructive urinary calculus or overt hydronephrosis is appreciated. There is however some bilateral nonspecific hydroureter with mild appearance inferiorly and could be phase related. This can also be seen with processes including non radiopaque, passed calculus as well as urinary tract inflammation. COMMENTS: Consistent with the [employer]'s Incidental Findings Committee white paper (J Am Prince Radiol 2018): Any incidental renal lesion less than 1 cm or classified as too small to characterize, or any incidental cystic renal lesion characterized as simple-appearing, is likely benign. No follow-up imaging is recommended for these lesions per consensus recommendations based on imaging criteria.
[2023-01-24] MEDS: lisinopril 20 mg Tablet 40 MG PO (11:49)
[2023-01-24] MEDS: metoprolol succinate ER (24 HR) 100 mg Tablet PO ×2 (11:49→20:27)
[2023-01-24 12:54] LABS: Troponin 5 2HR 21.89 ng/L (0-10)
[2023-01-24 13:05] LABS: Troponin 5 2HR Delta 9.89 ABS# (0-10)
[2023-01-24] MEDS: acetaminophen 325 mg Tablet 650 MG PO (13:42)
[2023-01-24] MEDS: sodium chloride 0.9% 1,000 ML 75 ML IV (13:43)
--- NOTE | 2023-01-24 13:49 | PM.HP ---
Providers/Chief Complaint Admitting Physician: Gerard Blackwood MD Primary Care Provider: Chava Mix MD Chief Complaint: WEAKNESS; FALL History of Present Illness Rosenda Shah is a 77 year old female with past medical history of hypertension, type 2 diabetes mellitus, atrial flutter not on anticoagulation, chronic back pain on pain medication, GERD presents to the ER today with her daughter with frequent falls. As per the daughter patient fell last night and was laying on the floor for the whole night because she was checked upon today morning. Patient has been having recurrent falls in the last 1 month. She felt few days ago while she was going to check her mail and hit her adult alert button by event EMS came and brought patient back to the house. Falls are not associated with nausea, vomiting, headache, chest pain, palpitations or aura. After the patient her few months ago and she is living by herself. She takes care of her own medication though she does have in-home services who has been making her medication box. Patient thinks she takes 2 tablets of [place] in the morning and in the evening, dose or medication is not present in the chart. As per the daughter she gets pain medications through pain clinic. Daughter also thinks that she is on multiple antidepressant medications which should be cut down. As per daughter she was living in a stressful situation with her who recently and now she should be on less anxiety medications. As per daughter patient has been more confused since he was started on Zyprexa by her PCP few months ago which since then has been stopped though as per daughter patient has never clearly had a thought process since then. Patient states she checks her blood pressures at home few times a week and usually blood pressures are around 200 to as per daughter she is not aware of patient checking her blood pressures ever at home. In the ER patient was found to have high blood pressures going up to 200 systolics for which she received IV hydralazine and her home dose of oral medications. On examination patient's blood pressure is 190 over 100 mmHg with heart rate of 90 bpm saturating well on room air. Patient is awake and alert , Complaining of headache, has slow speech. Review of Systems General: Reports: 10 or more systems reviewed and unremarkable except in HPI and below Const: Denies: fever(s), chills, body aches, change in appetite, change in weight, malaise, night sweats, diaphoresis, change in sleep pattern, daytime sleepiness or snoring Eyes: Denies: change in vision, blurry vision, photophobia, eye discomfort or eye discharge ENMT: Denies: throat pain, enlarged tonsils, hoarseness, mouth pain, oral sores, dry mouth, tinnitus, nasal congestion or post nasal drip Card: Denies: chest pain, palpitations, irregular heart rhythm, edema, swelling of feet/ankles, lightheadedness, syncope, pre-syncope, dyspnea on exertion, orthopnea, leg pain with exertion or acrocyanosis Resp: Denies: dyspnea, productive cough, non-productive cough, wheezing, stridor, pain on inspiration, change in phlegm color, hemoptysis or chest congestion GI: Denies: abdominal pain, nausea, vomiting, hematemesis, coffee ground emesis, dysphagia, heartburn, diarrhea, constipation, bloating, GI cramping, change in bowel habits, pain on defecation, hematochezia or melena : Denies: flank pain, dysuria, urinary frequency, urinary urgency, urinary hesitancy, nocturia or hematuria Musc: Denies: neck pain, back pain, extremity pain, joint pain, joint swelling, joint redness, joint stiffness or limited range of motion Neuro: Denies: headache(s), numbness in extremities, weakness in extremities, sensory changes, lack of coordination, difficulty walking, frequent falls, dizziness, vertigo, confusion, Slurred speech present, difficulty communicating thoughts or seizure-like activity Psych: Denies: anxiety, depression, mood swings, panic attacks, hopelessness or irritability Endo: Denies: polyuria, polydipsia, tired all the time, cold intolerance, excessive sweating, flushing or heat intolerance Sim/Lymph: Denies: easy bruising or easy bleeding All/Imm: Denies: tongue swelling, facial swelling or acute wheezing Medications/Allergies Home Medications Medication Instructions Recorded Confirmed Last Taken Type blood pressure monitor (Blood #1 ea 05/16/19 01/24/23 Unknown Rx Pressure Kit) multivitamin (Multiple Vitamins 1 tab PO DAILY 09/27/19 01/24/23 01/23/23 History tablet) blood sugar diagnostic (True #100 ea 06/27/21 01/24/23 Unknown Rx Metrix Glucose Test Strip) blood-glucose meter (True Metrix #1 ea 06/27/21 01/24/23 Unknown Rx Glucose Meter kit) lancets 33 gauge (BD Ultra Fine #100 ea 06/27/21 01/24/23 Unknown Rx Lancets) loperamide 2 mg tablet 2 mg PO Q6H PRN Diarrhea 07/01/21 01/24/23 Unknown History (Anti-Diarrheal (loperamide)) amlodipine 5 mg tablet 5 mg PO DAILY #30 tabs 09/19/22 01/24/23 01/23/23 Rx atorvastatin 80 mg tablet 80 mg PO DAILY 30 days #30 tabs 09/19/22 01/24/23 01/23/23 Rx doxepin 10 mg capsule 10 mg PO TID #90 caps 09/19/22 01/24/23 01/23/23 Rx duloxetine 60 mg capsule,delayed 60 mg PO BID 30 days #60 caps 09/19/22 01/24/23 01/23/23 Rx release sprinkle lisinopril 40 mg tablet 40 mg PO DAILY #30 tabs 09/19/22 01/24/23 01/23/23 Rx magnesium oxide 400 mg PO BID #60 caps 09/19/22 01/24/23 01/23/23 Rx metformin 500 mg tablet,extended 1,000 mg PO BID #120 tabs 09/19/22 01/24/23 01/23/23 Rx release 24 hr pantoprazole 40 mg tablet,delayed 40 mg PO DAILY 30 days #30 tabs 09/19/22 01/24/23 01/23/23 Rx release semaglutide 3 mg tablet (Rybelsus) 3 mg PO DAILY 30 days #30 tabs 09/19/22 01/24/23 01/23/23 Rx metoprolol succinate 100 mg 100 mg PO BEDTIME 09/29/22 01/24/23 01/23/23 History tablet,extended release 24 hr (Toprol XL) tamsulosin 0.4 mg capsule (Flomax) 0.4 mg PO BEDTIME 09/29/22 01/24/23 01/23/23 History cyclobenzaprine 10 mg tablet 10 mg PO TID 01/24/23 01/24/23 Unknown History Allergies Allergy/AdvReac Type Severity Reaction Status Date / Time celecoxib [From Celebrex] Allergy Severe ALGY-Swell Verified 01/24/23 09:06 Lip/Tongue/Throat gabapentin Allergy Severe ALGY-Swell Verified 01/24/23 09:06 Lip/Tongue/Throat Sulfa (Sulfonamide Allergy Severe ALGY-Swell Verified 01/24/23 09:06 Antibiotics) Lip/Tongue/Throat baclofen Allergy made her Verified 01/24/23 09:06 crazy pregabalin [From Lyrica] Allergy Unknown Verified 01/24/23 09:06 PFSH Acute PFSH: Medical History Acute bilateral low back pain without sciatica Anxiety with depression Back pain with history of spinal surgery Chronic GERD DDD (degenerative disc disease), lumbar Diabetes mellitus with hyperglycemia, without long-term current use of insulin Dorsalgia, unspecified Encounter for long-term use of opiate analgesic Hyperlipemia Hypertension Insomnia Lumbar spondylosis Nodule of kidney Right 16mm seen [facility] [address] 2019 Opioid contract exists Vitamin D deficiency Surgical History History of adenectomy History of appendectomy History of back surgery 3 times on lumbar Hx of cholecystectomy Hx of hysterectomy Family History Mother CAD (coronary artery disease) Cancer Dementia Father CAD (coronary artery disease) Denies family history of Diabetes Clotting disorder Chronic kidney disease (CKD) Suicide Anesthesia complication Bleeding disorder Lung disease Stroke Social History (Updated 01/24/23 @ 14:46 by Gerard Blackwood MD) Smoking and tobacco/nicotine status: never used tobacco/nicotine Second hand smoke exposure: No Alcohol intake: never Substance/Drug Use: never Adopted: No Caregiver/support person: No Lives independently: Yes Household members: spouse Housing: House Marital status: / Current occupational status: disabled Do you think of yourself as: Straight/Heterosexual Current gender identity: Female Vitals/I&O/Wt Last Vital Signs Temp 98.5 F 01/24/23 09:02 Pulse 109 H 01/24/23 09:15 Resp 18 01/24/23 09:15 BP 150/100 01/24/23 12:34 Pulse Ox 96 01/24/23 09:15 O2 Del Method Room Air 01/24/23 09:15 01/23/23 01/24/23 01/24/23 22:59 06:59 14:59 Intake Total 1000 / 1000 Balance 1000 / 1000 Weight last 48 hrs Weight 73.028 kg Physical Exam Narrative: General: No acute distress, AO x3, mildly anxious, slow speech HEENT: PERRLA, pupils bilaterally equal and reactive Chest: Normal vesicular breath sounds, no added sounds, equal good air entry bilaterally CVS: S1-S2 regular, no murmurs, no tachycardia, no gallops, no rubs Abdomen: Soft, nontender, no organomegaly, bowel sounds present Neuro: No focal deficits, no facial deformity, AO x3, power 5/5 in all limbs Data 01/24/23 09:38 01/24/23 09:38 A&P Assessment and plan (1) Fall: (2) Weakness: (3) Accelerated hypertension: (4) Atrial flutter by electrocardiogram: (5) Diabetes mellitus with hyperglycemia, without long-term current use of insulin: Qualifiers: Diabetes mellitus type: type 2 Qualified Code(s): E11.65 - Type 2 diabetes mellitus with hyperglycemia (6) Opioid contract exists: (7) Anxiety with depression: Plan Fall: Recurrent falls as per the patient in last few months. CT head negative for stroke. Patient did have accelerated hypertension on admission, has history of atrial fibrillation, on pain medication and depression medications. Unknown etiology. Could be multifactorial. Cannot rule out polypharmacy. PT evaluation. Fall precautions, out of bed to chair. Appreciate recent TSH, check vitamin B12 and folate levels. No signs of infection for now. Hold off on antibiotics. Follow-up urine culture. Follow-up troponin cycle no cardiac cause unlikely. Telemetry given history of atrial fibrillation. For now start patient on [place] 5 mg every 8 hourly as needed. Will confirm further with pharmacy and patient's primary care provider about home pain medication dose. There is a concern for polypharmacy given high dose of antidepressants. Currently patient takes doxepin 10 mg 3 times daily, Cymbalta 60 mg twice daily. For now change doxepin to 10 mg nightly and Cymbalta to 60 mg daily. Accelerated hypertension: Is on amlodipine 5 mg daily, lisinopril 40 mg daily, metoprolol extended 100 mg nightly at home. Goal blood pressure less than 140/90 mmHg. Increase amlodipine to 10 mg daily, continue with home dose of lisinopril and metoprolol. Add hydralazine 25 mg 4 times daily, 10 mg IV every 4 as needed for systolic blood pressure more than 160 mmHg. Check echocardiogram. Continue other chronic medications. Type 2 diabetes mellitus: Appreciate recent A1c. Insulin sliding scale at moderate dose protocol. Atrial fibrillation: Currently rate controlled. Continue telemetry. Cannot rule out occasional episodes of paroxysmal RVR. Continue with home dose of metoprolol for now. CODE STATUS: Discussed in detail with the patient. Daughter who is the RN/Ms. Escalera at bedside will be the DPOA. Patient does not want any heroic measures, chest compression or life support. DNR/DNI. Discharge plan: Patient recently , has been having recurrent falls in last few weeks. Lives by herself but does have in-home services. Discussed safe discharge planning in detail. As per the daughter who is DPOA patient's other daughter Ms. Bucio will be coming and living with her going forward. If not able to fulfill the needs then patient will move in Ms. Escalera. Carb consistent diet Heparin 5000 every 8 hourly for DVT prophylaxis. Attestations Medical Necessity Statement*: Admission for more than 2 midnights for management and evaluation of recurrent falls with weakness with high concerns for polypharmacy, atrial fibrillation with concerns for paroxysmal A-fib RVR, accelerated hypertension Diagnoses Fall W19.XXXA Weakness R53.1 Accelerated hypertension I10 Atrial flutter by electrocardiogram I48.92 Diabetes mellitus with hyperglycemia, without long-term current use of insulin E11.65 Diabetes mellitus type: type 2 Opioid contract exists Z79.891 Anxiety with depression F41.8
[2023-01-24] MEDS: cyclobenzaprine 10 mg Tablet PO ×2 (15:04→20:27)
[2023-01-24] MEDS: heparin 5,000 unit/mL INJ 1 mL 5000 UNIT SUBCUT ×2 (15:04→21:30)
[2023-01-24 15:40] LABS: Iron 40 ug/dL (37-145); Percent Saturation 10.9 % (20-50); Total Iron Binding Capacity 364 mcg/dl; Unsaturated Iron Binding 324 ug/dL (112-347)
[2023-01-24 15:54] LABS: Vitamin B12 216 pg/mL (232-1245)
[2023-01-24] MEDS: flu vacc pf 2023-24 (6 mos+) 60 MCG IM (16:03)
[2023-01-24 16:38] LABS: Glucose Point of Care 199 mg/dL (70-110)
[2023-01-24] MEDS: hyDRALAzine 25 mg Tablet PO ×2 (16:58→20:27)
[2023-01-24 17:02] LABS: Troponin 5 6HR 16.82 ng/L (0-10)
[2023-01-24 17:03] LABS: Troponin 5 6HR Delta 4.82 ng/L (0-12)
[2023-01-24] MEDS: insulin lispro 100 unit/1 mL SUBCUT ×2 (17:45→21:30)
[2023-01-24] MEDS: magnesium oxide 400 mg tablet PO (17:45)
[2023-01-24] MEDS: morphine 4 mg/mL SDV 1 mL 2 MG IVP (18:59)
[2023-01-24] MEDS: tamsulosin 0.4 mg Capsule PO (20:27)
[2023-01-24] MEDS: doxepin 10 mg Capsule PO (20:27)
[2023-01-24 20:42] LABS: Glucose Point of Care 216 mg/dL (70-110)
[2023-01-24] MEDS: ondansetron 2 mg/ML SDV 2 mL 4 MG IVP (23:00)
[2023-01-25] VITALS (17 sets, daily range): BP systolic 126–167; BP diastolic 74–103; PULSE 86–98; RESP 15–25; TEMP 36.7–37.4; O2SAT 91–96
[2023-01-25] MEDS: morphine 4 mg/mL SDV 1 mL 2 MG IVP (00:06)
[2023-01-25 03:47] LABS: Basophils # 0.1 10^3/uL (0.0-0.1); Basophils % 0.5 %; Hematocrit 37.7 % (36-47); Lymphocytes # 2.7 10^3/uL (0.8-4.8); Lymphocytes % 25.8 %; Mean Corpuscular HGB Conc 31.6 g/dL (30-55); Mean Corpuscular Hemoglobin 26.7 pg (27-33); Mean Corpuscular Volume 84.7 fl (85-98); Mean Platelet Volume 11.1 fL (7.4-10.4); Monocytes # 0.6 10^3/uL (0.2-0.9); Monocytes % 5.4 %; Neutrophils # 7.23 10^3/uL (1.8-7.7); Nucleated Red Blood Cells % 0 %; Platelet Count 353 10^3/cmm (157-399); Red Blood Count 4.45 10^6/uL (3.85-5.65); Red Cell Distribution Width 14.8 % (12.1-15.1); White Blood Count 10.62 10^3/uL (3.29-11.43)
[2023-01-25 04:10] LABS: Alanine Aminotransferase 11 U/L (0-33); Alkaline Phosphatase 68 U/L (35-105); Anion Gap 16.7 (5-19); Aspartate Amino Transferase 14 U/L (0-32); Blood Urea Nitrogen 9 mg/dL (8-23); Calcium 9.5 mg/dL (8.5-10.5); Carbon Dioxide 23 mmol/L (22-29); Chloride 102 mmol/L (98-107); Globulin 2.7 g/dL (1.3-4.6); Glucose 218 mg/dL (65-115); Magnesium 1.4 mg/dL (1.7-2.3); Osmolality Calculated 291 mOsm/kg (285-295); Phosphorus 3.2 mg/dL (2.5-4.5); Potassium 3.7 mmol/L (3.5-5.1); Sodium 138 mmol/L (136-145); Total Bilirubin 0.7 mg/dL (0.15-1.2); Total Protein 6.7 g/dL (6.6-8.7)
[2023-01-25] MEDS: heparin 5,000 unit/mL INJ 1 mL 5000 UNIT SUBCUT ×3 (06:27→21:46)
[2023-01-25 06:32] LABS: Glucose Point of Care 176 mg/dL (70-110)
[2023-01-25] MEDS: lisinopril 20 mg Tablet 40 MG PO (08:13)
[2023-01-25] MEDS: magnesium oxide 400 mg tablet PO ×2 (08:14→18:08)
[2023-01-25] MEDS: insulin lispro 100 unit/1 mL SUBCUT ×4 (08:14→21:47)
[2023-01-25] MEDS: hyDRALAzine 25 mg Tablet PO (08:14)
[2023-01-25] MEDS: duloxetine 60 mg Capsule PO (08:14)
[2023-01-25] MEDS: cyclobenzaprine 10 mg Tablet PO (08:14)
[2023-01-25] MEDS: pantoprazole DR 40 mg Tablet PO (08:14)
[2023-01-25] MEDS: atorvastatin 40 mg Tablet 80 MG PO (08:15)
[2023-01-25] MEDS: amlodipine 10 mg Tablet PO (08:15)
[2023-01-25 12:08] LABS: Glucose Point of Care 158 mg/dL (70-110)
--- NOTE | 2023-01-25 12:51 | USCV_ITS ---
Rosenda Shah Age: 77 Gender: F : 1945 Exam Date: 01/25/2023 13:29 Ordering Phys: Gerard Blackwood MD Technologist: Mio Davalos Exam Location: [facility] [place] Indication: htn BP: 137 / 103 HR: 82 Rhythm: Sinus Technical Quality: Adequate MEASUREMENTS (Male / Female) Normal Values 2D ECHO LVOT Diameter 2.1 cm LV Ejection Fraction MOD 2C 64.0 % LV Ejection Fraction 2C AL 64.5 % LA Diameter 3.2 cm LA Width 3.0 cm LA Height 3.9 cm RA Width 2.6 cm RA Height 3.4 cm Aorta at Sinotubular Diameter 2.6 cm IVC Diameter 1.7 cm M-MODE Aortic Annulus Diameter 3.1 cm LA Ao Ratio MM 1.1 MV E Point Septal Separation 0.5 cm DOPPLER AV Peak Velocity 139.0 cm/s LVOT Peak Velocity 88.0 cm/s AV Area Cont Eq vti 1.9 cm squared AV Area Cont Eq pk 2.1 cm squared MV Peak Velocity 108.0 cm/s MV Area PHT 4.6 cm squared Mitral E to A Ratio 0.7 MV E' Velocity 32.0 cm/s Mitral E to MV E' Ratio 8.2 Mitral E to LV E' Lateral Ratio 8.7 Mitral E to LV E' Septal Ratio 7.8 TR Peak Velocity 157.8 cm/s TR Peak Gradient 10.0 mmHg TR Mean Velocity 127.9 cm/s TR Mean Gradient 7.7 mmHg TR Velocity Time Integral 38.6 cm Right Atrial Pressure 3.0 mmHg Pulmonary Artery Systolic Pressu 13.0 mmHg PV Peak Velocity 85.0 cm/s RV Acceleration Time 0.1 s RV Ejection Time 0.3 s RV AcT/ET 0.3 FINDINGS Left Ventricle Normal left ventricular size, systolic function and moderately increased wall thickness, with no regional wall motion abnormalities. Left ventricular ejection fraction is estimated at 70 %. Normal diastolic function. Right Ventricle Normal right ventricular size and systolic function. Right ventricular systolic pressure 13 mmHg. Right Atrium Normal right atrial size. Left Atrium Normal left atrial size. Mitral Valve Structurally normal mitral valve. No mitral valve stenosis. No mitral valve regurgitation. Aortic Valve Structurally normal trileaflet aortic valve. No aortic valve stenosis. No aortic valve regurgitation. Tricuspid Valve Structurally normal tricuspid valve. No tricuspid valve stenosis. Trace tricuspid valve regurgitation. Pulmonic Valve Structurally normal pulmonic valve. No pulmonary valve stenosis. Trace pulmonary valve regurgitation. Pericardium No pericardial effusion. Aorta Normal size aortic root and proximal ascending aorta. IVC Normal IVC dimension with >50% respiratory change of the inferior vena cava. CONCLUSIONS 1. Normal left ventricular size, systolic function and moderately increased wall thickness, with no regional wall motion abnormalities. Left ventricular ejection fraction is estimated at 70 %. Normal diastolic function. 2. No significant valvular abnormality. 3. No prior similar studies to compare. Kenzie Solis MD (Electronically Signed) Final Date: 26 January 2023 09:48 S
[2023-01-25] MEDS: magnesium sulfate premix 2 GM/50 ML PIGGYBACK IV (13:35)
[2023-01-25] MEDS: cyanocobalamin 1,000 mcg/mL SDV 1000 MCG IM (13:35)
--- NOTE | 2023-01-25 14:47 | PM.PN ---
Subjective Subjective: No acute events overnight. Patient did have episode of confusion last night. Today morning seen with daughter at bedside. As per daughter patient seems more weak today and was falling backwards while working with physical therapy. Patient seems more weak while trying to feed herself. Patient is awake and alert though slow to respond. Vitals appreciated for blood pressures to be normal today. Blood work appreciated for normal CBC, CMP, low magnesium and low vitamin B12 levels Vitals/I&O/Wt Last Vital Signs Temp 98.8 F 01/25/23 04:00 Pulse 87 01/25/23 12:00 Resp 20 H 01/25/23 12:00 BP 137/103 01/25/23 12:00 Pulse Ox 91 01/25/23 12:00 O2 Del Method Room Air 01/25/23 12:00 01/24/23 01/25/23 01/25/23 23:59 06:59 14:59 Intake Total 460 / 460 Balance 460 / 460 Weight last 48 hrs Weight 73.255 kg Weight 73.028 kg Physical Exam Narrative: General: No acute distress, AO x3, mildly anxious, slow speech HEENT: PERRLA, pupils bilaterally equal and reactive Chest: Normal vesicular breath sounds, no added sounds, equal good air entry bilaterally CVS: S1-S2 regular, no murmurs, no tachycardia, no gallops, no rubs Abdomen: Soft, nontender, no organomegaly, bowel sounds present Neuro: No focal deficits, no facial deformity, AO x3, power 5/5 in all limbs Data 01/25/23 02:59 01/25/23 02:59 Micro: Microbiology 01/24/23 09:50 Urine Culture - Final Urine,Clean Catch A&P Assessment and plan (1) Fall: (2) Weakness: (3) Accelerated hypertension: (4) Atrial flutter by electrocardiogram: (5) Diabetes mellitus with hyperglycemia, without long-term current use of insulin: Qualifiers: Diabetes mellitus type: type 2 Qualified Code(s): E11.65 - Type 2 diabetes mellitus with hyperglycemia (6) Opioid contract exists: (7) Anxiety with depression: Plan Fall: Recurrent falls as per the patient in last few months. CT head negative for stroke. Patient did have accelerated hypertension on admission, has history of atrial fibrillation, on pain medication and depression medications. Unknown etiology. Could be multifactorial. Cannot rule out polypharmacy. As per daughter on review of pillbox from home, medications have been erratically taken over last 1 week with some medications taken and some not. PT evaluation. Fall precautions, out of bed to chair. Appreciate recent TSH. Vitamin B12 found to be severely low. Start on IM 1000 mcg dose daily. No signs of infection for now. Hold off on antibiotics. Follow-up urine culture. Troponin cycle negative. Telemetry given history of atrial fibrillation. For now start patient on [place] 5 mg every 8 hourly as needed. Will confirm further with pharmacy and patient's primary care provider about home pain medication dose. There is a concern for polypharmacy given high dose of antidepressants. Currently patient takes doxepin 10 mg 3 times daily, Cymbalta 60 mg twice daily. For now change doxepin to 10 mg nightly and Cymbalta to 60 mg daily. Generalized weakness: Most likely in setting of vitamin B12 deficiency along with polypharmacy for depression. Patient slightly worsened today as blood pressure was found to be normalized. It is highly likely that patient has been noncompliant to medications at home and her blood pressures have been running with systolics around 200s. Patient feeling relatively hypotensive with normal blood pressures now. Will be liberal with blood pressures goal for now. Also stop Flexeril which she takes 10 mg 3 times daily and changed to 5 mg nightly as needed. Accelerated hypertension: Is on amlodipine 5 mg daily, lisinopril 40 mg daily, metoprolol extended 100 mg nightly at home. Goal blood pressure less than 140/90 mmHg. Continue with increased amlodipine 10 mg daily, home dose of lisinopril and metoprolol. Hold off on hydralazine now given patient having symptoms of relative hypotension with normal blood pressures for now. Continue with IV hydralazine 10 mg every 4 as needed for systolic blood pressure more than 160 mmHg. Check echocardiogram. Continue other chronic medications. Type 2 diabetes mellitus: Appreciate recent A1c. Insulin sliding scale at moderate dose protocol. Atrial fibrillation: Currently rate controlled. Continue telemetry. Cannot rule out occasional episodes of paroxysmal RVR. Continue with home dose of metoprolol for now. CODE STATUS: Discussed in detail with the patient. Daughter who is the RN/Ms. Escalera at bedside will be the DPOA. Patient does not want any heroic measures, chest compression or life support. DNR/DNI. Discharge plan: Patient recently , has been having recurrent falls in last few weeks. Lives by herself but does have in-home services. Discussed safe discharge planning in detail. As per the daughter who is DPOA patient's other daughter Ms. Bucio will be coming and living with her going forward. If not able to fulfill the needs then patient will move in Ms. Escalera. Plan for the day: [place] goal blood pressure control. Stop 25 mg of hydralazine 3 times daily. Monitor blood pressures with goal of 140/90 mmHg. Start on vitamin B12 IM replacement. 2 mg of IV magnesium. PT evaluation. Carb consistent diet Heparin 5000 every 8 hourly for DVT prophylaxis. Attestations Medical Necessity Statement*: Requires further hospitalization for further evaluation and management of recurrent falls and generalized weakness while antihypertensives are adjusted And safe discharge planning is sought. Diagnoses Fall W19.XXXA Weakness R53.1 Accelerated hypertension I10 Atrial flutter by electrocardiogram I48.92 Diabetes mellitus with hyperglycemia, without long-term current use of insulin E11.65 Diabetes mellitus type: type 2 Opioid contract exists Z79.891 Anxiety with depression F41.8
[2023-01-25 17:25] LABS: Glucose Point of Care 197 mg/dL (70-110)
[2023-01-25 21:07] LABS: Glucose Point of Care 160 mg/dL (70-110)
[2023-01-25] MEDS: doxepin 10 mg Capsule PO (21:46)
[2023-01-25] MEDS: metoprolol succinate ER (24 HR) 100 mg Tablet PO (21:46)
[2023-01-25] MEDS: tamsulosin 0.4 mg Capsule PO (21:47)
[2023-01-26] VITALS (18 sets, daily range): BP systolic 130–189; BP diastolic 80–101; PULSE 67–86; RESP 10–28; TEMP 36.8–37.2; O2SAT 90–98
[2023-01-26] MEDS: heparin 5,000 unit/mL INJ 1 mL 5000 UNIT SUBCUT ×3 (05:48→22:18)
[2023-01-26 05:49] LABS: Basophils % 0.4 %; Eosinophils # 0.2 10^3/uL (0.0-0.8); Eosinophils % 2.1 %; Hematocrit 36.5 % (36-47); Lymphocytes # 2.6 10^3/uL (0.8-4.8); Lymphocytes % 28.3 %; Mean Corpuscular HGB Conc 30.7 g/dL (30-55); Mean Corpuscular Hemoglobin 27.1 pg (27-33); Mean Corpuscular Volume 88.2 fl (85-98); Monocytes # 0.7 10^3/uL (0.2-0.9); Monocytes % 7.3 %; Neutrophils # 5.54 10^3/uL (1.8-7.7); Neutrophils % 61.7 %; Nucleated Red Blood Cells % 0 %; Platelet Count 343 10^3/cmm (157-399); Red Blood Count 4.14 10^6/uL (3.85-5.65)
[2023-01-26 06:07] LABS: Alanine Aminotransferase 9 U/L (0-33); Albumin Level 3.4 g/dL (3.5-5.2); Alkaline Phosphatase 54 U/L (35-105); Aspartate Amino Transferase 12 U/L (0-32); Blood Urea Nitrogen 9 mg/dL (8-23); Calcium 8.9 mg/dL (8.5-10.5); Carbon Dioxide 24 mmol/L (22-29); Chloride 105 mmol/L (98-107); Globulin 2.6 g/dL (1.3-4.6); Glucose 162 mg/dL (65-115); Magnesium 2.1 mg/dL (1.7-2.3); Osmolality Calculated 292 mOsm/kg (285-295); Phosphorus 3.3 mg/dL (2.5-4.5); Sodium 140 mmol/L (136-145); Total Bilirubin 0.8 mg/dL (0.15-1.2)
[2023-01-26 07:16] LABS: Glucose Point of Care 172 mg/dL (70-110)
[2023-01-26] MEDS: lisinopril 20 mg Tablet 40 MG PO (08:11)
[2023-01-26] MEDS: pantoprazole DR 40 mg Tablet PO (08:11)
[2023-01-26] MEDS: amlodipine 10 mg Tablet PO (08:11)
[2023-01-26] MEDS: magnesium oxide 400 mg tablet PO ×2 (08:11→17:10)
[2023-01-26] MEDS: duloxetine 60 mg Capsule PO (08:11)
[2023-01-26] MEDS: atorvastatin 40 mg Tablet 80 MG PO (08:12)
[2023-01-26] MEDS: insulin lispro 100 unit/1 mL SUBCUT ×4 (08:12→20:38)
[2023-01-26] MEDS: cyanocobalamin 1,000 mcg/mL SDV 1000 MCG IM (08:12)
[2023-01-26 11:07] LABS: Folate Level 16.5 ng/mL (4.8-37.3)
[2023-01-26 12:04] LABS: Glucose Point of Care 187 mg/dL (70-110)
--- NOTE | 2023-01-26 14:34 | PM.PN ---
Subjective Subjective: Patient reports she feels much better today. Daughter is bedside and supportive. She states her mentation is much better than yesterday. She states yesterday that Rosenda was extremely altered. Patient states her headache has also resolved. Denies fevers, chills, nausea or emesis. Medications: Reviewed: Yes Vitals/I&O/Wt Last Vital Signs Temp 98.5 F 01/26/23 11:53 Pulse 86 01/26/23 14:00 Resp 28 H 01/26/23 11:53 BP 159/90 01/26/23 11:53 Pulse Ox 91 01/26/23 11:53 O2 Del Method Room Air 01/26/23 11:53 O2 Flow Rate 2 01/26/23 04:00 01/25/23 01/26/23 01/26/23 22:59 06:59 14:59 Intake Total 720 / 720 Output Total 275 / 275 Balance -275 / 235 720 / 720 Weight last 48 hrs Weight 72.938 kg Weight 73.482 kg Weight 73.255 kg Physical Exam Narrative: General: Patient is awake and alert. Very pleasant. Head: Normocephalic. Atraumatic. EOM intact. Neck: No JVD. Cardiovascular: RRR. No gallops. No murmurs. Hypertensive. Lungs: Clear to auscultation, no use of accessory muscles, no crackles or wheezes. Skin: No jaundice. No rashes. Abdomen: Normal bowel sounds, abdomen soft and nontender. Genito Urinary: Genital exam not performed since complaints not related. Rectal: Rectal exam not performed since no symptoms indicated blood loss. Extremities: No cyanosis or clubbing. Musculoskeletal: No erythematous joints. Neurological: Moves all 4 extremities. No myoclonus. Data 01/26/23 05:41 01/26/23 05:41 Micro: Microbiology 01/24/23 09:50 Urine Culture - Final Urine,Clean Catch A&P Assessment and plan (1) Accelerated hypertension: Blood pressure control is improving Echo w/ LVH c/w long-standing hypertension Concern for symptomatic relative hypotension Continue Norvasc Continue lisinopril Continue metoprolol (2) Fall: Fall precautions Suspected polypharmacy Home medications have been adjusted (3) Weakness: Associated with debility and physical deconditioning Treat comorbidities Therapy (4) B12 deficiency: Continue daily B12 injections (5) Hyperlipemia: Continue statin Qualifiers: Hyperlipidemia type: unspecified Qualified Code(s): E78.5 - Hyperlipidemia, unspecified (6) Anxiety with depression: Continue doxepin, consider weaning completely off given TCA Continue Cymbalta (may have BP effect) (7) Diabetes mellitus with hyperglycemia, without long-term current use of insulin: SSI Avoid hypoglycemia Qualifiers: Diabetes mellitus type: type 2 Qualified Code(s): E11.65 - Type 2 diabetes mellitus with hyperglycemia Plan DVT ppx: Heparin Code: DNR Attestations Medical Necessity Statement*: Patient requires ongoing hospitalization for serial neuro exams, blood pressure monitoring, medication titration, therapy, and supportive care. Coding Level of Care Code Acute Code for Chg Fwd Diagnoses Accelerated hypertension I10 Fall W19.XXXA Weakness R53.1 B12 deficiency E53.8 Hyperlipemia E78.5 Hyperlipidemia type: unspecified Anxiety with depression F41.8 Diabetes mellitus with hyperglycemia, without long-term current use of insulin E11.65 Diabetes mellitus type: type 2
[2023-01-26 16:49] LABS: Glucose Point of Care 170 mg/dL (70-110)
[2023-01-26] MEDS: tamsulosin 0.4 mg Capsule PO (20:38)
[2023-01-26] MEDS: metoprolol succinate ER (24 HR) 100 mg Tablet PO (20:39)
[2023-01-26] MEDS: doxepin 10 mg Capsule PO (20:39)
[2023-01-26 20:52] LABS: Glucose Point of Care 154 mg/dL (70-110)
[2023-01-27] VITALS (21 sets, daily range): BP systolic 167–207; BP diastolic 100–120; PULSE 66–109; RESP 15–25; TEMP 36.7–36.8; O2SAT 84–93; BMI 25.9
[2023-01-27 05:39] LABS: Alanine Aminotransferase 12 U/L (0-33); Albumin Level 3.5 g/dL (3.5-5.2); Alkaline Phosphatase 60 U/L (35-105); Anion Gap 15.7 (5-19); Aspartate Amino Transferase 13 U/L (0-32); Blood Urea Nitrogen 8 mg/dL (8-23); Calcium 9.4 mg/dL (8.5-10.5); Carbon Dioxide 24 mmol/L (22-29); Chloride 104 mmol/L (98-107); Globulin 2.9 g/dL (1.3-4.6); Glucose 195 mg/dL (65-115); Magnesium 2.1 mg/dL (1.7-2.3); Osmolality Calculated 294 mOsm/kg (285-295); Phosphorus 3.4 mg/dL (2.5-4.5); Potassium 3.7 mmol/L (3.5-5.1); Sodium 140 mmol/L (136-145); Total Bilirubin 0.6 mg/dL (0.15-1.2); Total Protein 6.4 g/dL (6.6-8.7)
[2023-01-27] MEDS: heparin 5,000 unit/mL INJ 1 mL 5000 UNIT SUBCUT (05:51)
[2023-01-27 07:20] LABS: Glucose Point of Care 157 mg/dL (70-110)
[2023-01-27 07:41] LABS: Basophils # 0.1 10^3/uL (0.0-0.1); Basophils % 0.6 %; Eosinophils # 0.3 10^3/uL (0.0-0.8); Eosinophils % 3.3 %; Hematocrit 36.8 % (36-47); Lymphocytes # 3.2 10^3/uL (0.8-4.8); Lymphocytes % 37.2 %; Mean Corpuscular HGB Conc 30.2 g/dL (30-55); Mean Corpuscular Hemoglobin 26.2 pg (27-33); Mean Corpuscular Volume 86.8 fl (85-98); Mean Platelet Volume 10.4 fL (7.4-10.4); Monocytes # 0.6 10^3/uL (0.2-0.9); Monocytes % 7.1 %; Neutrophils # 4.39 10^3/uL (1.8-7.7); Neutrophils % 51.6 %; Nucleated Red Blood Cells % 0 %; Platelet Count 342 10^3/cmm (157-399); Red Blood Count 4.24 10^6/uL (3.85-5.65); Red Cell Distribution Width 14.6 % (12.1-15.1)
[2023-01-27] MEDS: magnesium oxide 400 mg tablet PO (08:29)
[2023-01-27] MEDS: amlodipine 10 mg Tablet PO (08:29)
[2023-01-27] MEDS: cyanocobalamin 1,000 mcg/mL SDV 1000 MCG IM (08:29)
[2023-01-27] MEDS: duloxetine 60 mg Capsule PO (08:29)
[2023-01-27] MEDS: atorvastatin 40 mg Tablet 80 MG PO (08:29)
[2023-01-27] MEDS: lisinopril 20 mg Tablet 40 MG PO (08:29)
[2023-01-27] MEDS: pantoprazole DR 40 mg Tablet PO (08:29)
[2023-01-27] MEDS: insulin lispro 100 unit/1 mL SUBCUT ×2 (08:30→13:19)
[2023-01-27] MEDS: chlorthalidone 25 mg Tablet 12.5 MG PO (10:50)
[2023-01-27 11:25] LABS: Glucose Point of Care 214 mg/dL (70-110)
--- NOTE | 2023-01-27 14:52 | PC.NURSE ---
Discharge Note Patient discharged to [Home] via [w/c to POV] accompanied by [her daughter]. Discharge instructions reviewed with patient and/or sales training representative. Mobile pharmacy medications and/or prescriptions provided. Belongings/home medications returned.
--- NOTE | 2023-01-28 15:49 | PM.DCS ---
Discharge Providers Date of Admission: 01/24/23 13:14 Date of Discharge: January 28, 2023 Attending Provider at Admission: Gerard Blackwood MD Attending Provider at Discharge: Julian Werner MD Primary Care Provider: Chava Mix MD Diagnoses at Discharge Discharge Diagnosis (1) Accelerated hypertension: Status: Acute (2) Fall: Status: Acute (3) Weakness: Status: Acute (4) B12 deficiency: Status: Acute (5) Hyperlipemia: Status: Chronic Qualifiers: Hyperlipidemia type: unspecified Qualified Code(s): E78.5 - Hyperlipidemia, unspecified (6) Anxiety with depression: Status: Acute (7) Diabetes mellitus with hyperglycemia, without long-term current use of insulin: Status: Chronic Qualifiers: Diabetes mellitus type: type 2 Qualified Code(s): E11.65 - Type 2 diabetes mellitus with hyperglycemia Reason for Visit Reason for Visit: WEAKNESS; FALL Hospital Course Hospital Course Rosenda Shah is a 77-year-old female with a past medical history significant for hypertension, type 2 diabetes mellitus, and atrial flutter who presented with generalized weakness, found to have debility and physical deconditioning from vitamin B12 deficiency, polypharmacy, and accelerated hypertension. Patient's home medications were adjusted to address polypharmacy concerns. Echocardiogram revealed left ventricular hypertrophy. Her blood pressure medications were titrated with subsequent improvement in blood pressure. She is to continue home blood pressure log and follow up with PCP for continued blood pressure regimen titration. She was treated with B12 IM injections which will continue weekly for the next month. Her mentation improved. SNF was considered but her recovery was enough that family opted to take patient home. She is to follow up with her PCP for continued care. Physical Exam Narrative: General: Patient is awake and alert.? Head:? Normocephalic. Atraumatic. EOM intact. Neck: No JVD. Cardiovascular: RRR. No gallops. No murmurs. Lungs: Clear to auscultation, no use of accessory muscles, no crackles or wheezes. Skin: No jaundice. No rashes. Abdomen: Normal bowel sounds, abdomen soft and nontender. Genito Urinary: Genital exam not performed since complaints not related. Rectal: Rectal exam not performed since no symptoms indicated blood loss. Extremities: No cyanosis or clubbing. Musculoskeletal: No erythematous joints. Neurological: Moves all 4 extremities. No myoclonus. Discharge Data Studies Completed and Pending Completed Studies During Hospitalization Category Date Time Status CT head wo con* [id number] Stat Cat Scan 01/24/23 09:[address] kidney stone [id number] Stat Cat Scan 01/24/23 11:14 Completed XR chest 1V portable [id number] Stat Exams 01/24/23 09:06 Completed CV. echo complete* [id number] Routine Ultrasound 01/25/23 12:51 Completed Radiology Impressions Chest X-Ray 01/24/23 09:06 IMPRESSION: Opacity, left lung base may represent effusion and/or parenchymal disease. Elevation of the right hemidiaphragm unchanged from the prior study. Head CT 01/24/23 09:06 IMPRESSION: No acute intracranial process. Abdomen/Pelvis CT 01/24/23 11:14 IMPRESSION: No radiopaque obstructive urinary calculus or overt hydronephrosis is appreciated. There is however some bilateral nonspecific hydroureter with mild appearance inferiorly and could be phase related. This can also be seen with processes including non radiopaque, passed calculus as well as urinary tract inflammation. COMMENTS: Consistent with the [employer]'s Incidental Findings Committee white paper (J Am Prince Radiol 2018): Any incidental renal lesion less than 1 cm or classified as too small to characterize, or any incidental cystic renal lesion characterized as simple-appearing, is likely benign. No follow-up imaging is recommended for these lesions per consensus recommendations based on imaging criteria. Laboratory Results WBC 8.50 10^3/uL (3.29-11.43) 01/27/23 06:49 Corrected WBC Cancelled 01/27/23 04:10 RBC 4.24 10^6/uL (3.85-5.65) 01/27/23 06:49 Hgb 11.10 g/dL (11.27-16.99) L 01/27/23 06:49 Hct 36.8 % (36-47) 01/27/23 06:49 MCV 86.8 fl (85-98) 01/27/23 06:49 MCH 26.2 pg (27-33) L 01/27/23 06:49 MCHC 30.2 g/dL (30-55) 01/27/23 06:49 RDW 14.6 % (12.1-15.1) 01/27/23 06:49 Plt Count 342 10^3/cmm (157-399) 01/27/23 06:49 MPV 10.4 fL (7.4-10.4) 01/27/23 06:49 Gran % Cancelled 01/27/23 04:10 Neut % (Auto) 51.6 % 01/27/23 06:49 Lymph % (Auto) 37.2 % 01/27/23 06:49 [place] % (Auto) 7.1 % 01/27/23 06:49 Eos % (Auto) 3.3 % 01/27/23 06:49 Baso % (Auto) 0.6 % 01/27/23 06:49 Neut # (Auto) 4.39 10^3/uL (1.8-7.7) 01/27/23 06:49 Lymph # (Auto) 3.2 10^3/uL (0.8-4.8) 01/27/23 06:49 [place] # (Auto) 0.6 10^3/uL (0.2-0.9) 01/27/23 06:49 Eos # (Auto) 0.3 10^3/uL (0.0-0.8) 01/27/23 06:49 Baso # (Auto) 0.1 10^3/uL (0.0-0.1) 01/27/23 06:49 Absolute Gran (auto) Cancelled 01/27/23 04:10 Nucleated RBC % (auto) 0 % 01/27/23 06:49 Nucleated RBCs # 0.0 /100WBC 01/27/23 06:49 Sodium 140 mmol/L (136-145) 01/27/23 04:10 Potassium 3.7 mmol/L (3.5-5.1) 01/27/23 04:10 Chloride 104 mmol/L (98-107) 01/27/23 04:10 Carbon Dioxide 24 mmol/L (22-29) 01/27/23 04:10 Anion Gap 15.7 (5-19) 01/27/23 04:10 BUN 8 mg/dL (8-23) 01/27/23 04:10 Creatinine 0.7 mg/dL (0.5-0.9) 01/27/23 04:10 GFR Calculation Not Reportable 01/27/23 04:10 Glucose 195 mg/dL (65-115) H 01/27/23 04:10 POC Glucose 214 mg/dL (70-110) H 01/27/23 11:22 Calculated Osmolality 294 mOsm/kg (285-295) 01/27/23 04:10 Calcium 9.4 mg/dL (8.5-10.5) 01/27/23 04:10 Phosphorus 3.4 mg/dL (2.5-4.5) 01/27/23 04:10 Magnesium 2.1 mg/dL (1.7-2.3) 01/27/23 04:10 Iron 40 ug/dL (37-145) 01/24/23 09:38 TIBC 364 mcg/dl 01/24/23 09:38 % Saturation 10.9 % (20-50) L 01/24/23 09:38 Unsat Iron Binding 324 ug/dL (112-347) 01/24/23 09:38 Total Bilirubin 0.6 mg/dL (0.15-1.2) 01/27/23 04:10 AST 13 U/L (0-32) 01/27/23 04:10 ALT 12 U/L (0-33) 01/27/23 04:10 Alkaline Phosphatase 60 U/L (35-105) 01/27/23 04:10 Creatine Kinase 46 U/L (26-192) 01/24/23 09:38 Troponin T Baseline 12 ng/L (0-10) H 01/24/23 09:38 Troponin T 120 Minute 21.89 ng/L (0-10) H 01/24/23 12:22 Delta Troponin T 9.89 ABS# (0-10) 01/24/23 12:22 Troponin T Hi Sens 6Hr 16.82 ng/L (0-10) H 01/24/23 16:12 Troponin T Hi Sens 6Hr Delta 4.82 ng/L (0-12) 01/24/23 16:12 Total Protein 6.4 g/dL (6.6-8.7) L 01/27/23 04:10 Albumin 3.5 g/dL (3.5-5.2) 01/27/23 04:10 Globulin 2.9 g/dL (1.3-4.6) 01/27/23 04:10 Vitamin B12 216 pg/mL (232-1245) L 01/24/23 09:38 Folate 16.5 ng/mL (4.8-37.3) 01/25/23 02:59 Urine Color Yellow (Yellow) 01/24/23 09:50 Urine Appearance Hazy (CLEAR) A 01/24/23 09:50 Urine pH 5 (5-7) 01/24/23 09:50 Ur Specific [place] 1.010 (1.005-1.030) 01/24/23 09:50 Urine Protein Neg (Negative) 01/24/23 09:50 Urine Glucose (UA) Norm (Normal) 01/24/23 09:50 Urine Ketones 1+ (Negative) H 01/24/23 09:50 Urine Blood 3+ (Negative) H 01/24/23 09:50 Urine Nitrate Negative (Negative) 01/24/23 09:50 Urine Bilirubin Neg (Negative) 01/24/23 09:50 Urine Urobilinogen Norm mg/dL (Negative) 01/24/23 09:50 Ur Leukocyte Esterase 1+ (Negative) H 01/24/23 09:50 Urine RBC 10-15 /hpf (0-2) H 01/24/23 09:50 Urine WBC 5-10 /hpf (0-5) H 01/24/23 09:50 Ur Squamous Epith Cells 0-4 /hpf (0-5) H 01/24/23 09:50 Amorphous Sediment 1+ /hpf 01/24/23 09:50 Urine Bacteria 3+ /hpf (NONE) H 01/24/23 09:50 Stl C. difficile Result See note 01/24/23 16:04 Vitals Last Vital Signs Temp 98.2 F 01/27/23 08:00 Pulse 82 01/27/23 14:21 Resp 20 H 01/27/23 14:21 BP 187/115 01/27/23 14:21 Pulse Ox 92 01/27/23 14:21 O2 Del Method Room Air 01/27/23 08:00 O2 Flow Rate 2 01/26/23 04:00 Discharge Plan Discharge Patient Disposition: Home Health Service Condition: Stable Prescriptions: New amlodipine 10 mg Tablet 10 mg PO DAILY 30 Days Qty: 30 1RF duloxetine 60 mg Capsule,Delayed Release(Dr/Ec) 60 mg PO DAILY Qty: 30 1RF doxepin 10 mg Capsule 10 mg PO BEDTIME Qty: 30 0RF cyanocobalamin (vitamin B-12) 1,000 mcg/mL kit 100 mcg IM .QWEEK 28 Days Qty: 4 0RF Rx Instructions: PLEASE PROVIDE INJECTION SUPPLIES IF NOT INCLUDED IN KIT. chlorthalidone 25 mg tablet 25 mg PO DAILY Qty: 30 1RF Continued loperamide [Anti-Diarrheal (loperamide)] 2 mg tablet 2 mg PO Q6H PRN (Reason: Diarrhea) atorvastatin 80 mg tablet 80 mg PO DAILY 30 Days Qty: 30 2RF lisinopril 40 mg tablet 40 mg PO DAILY Qty: 30 2RF magnesium oxide 400 mg magnesium capsule 400 mg PO BID Qty: 60 2RF metformin 500 mg tablet extended release 24 hr 1,000 mg PO BID Qty: 120 2RF pantoprazole 40 mg tablet,delayed release (DR/EC) 40 mg PO DAILY 30 Days Qty: 30 2RF Rybelsus 3 mg tablet 3 mg PO DAILY 30 Days Qty: 30 0RF multivitamin [Multiple Vitamins] Tablet 1 tab PO DAILY metoprolol succinate [Toprol XL] 100 mg tablet extended release 24 hr 100 mg PO BEDTIME tamsulosin [Flomax] 0.4 mg capsule 0.4 mg PO BEDTIME cyclobenzaprine 10 mg tablet 10 mg PO TID Discontinued amlodipine 5 mg tablet 5 mg PO DAILY Qty: 30 2RF doxepin 10 mg capsule 10 mg PO TID Qty: 90 2RF duloxetine 60 mg capsule, delayed rel sprinkle 60 mg PO BID 30 Days Qty: 60 2RF No Action (DME) blood pressure monitor [Blood Pressure Kit] Kit See Rx Instructions .ROUTE .MEDSUPPLY Qty: 1 0RF Rx Instructions: As directed (DME) blood-glucose meter [True Metrix Glucose Meter] Kit See Rx Instructions .Route Qty: 1 0RF Rx Instructions: As directed (DME) True Metrix Glucose Test Strip Strip See Rx Instructions .Route Qty: 100 5RF Rx Instructions: 1 strip daily (DME) lancets [BD Ultra Fine Lancets] 33 gauge misc See Rx Instructions .ROUTE .MEDSUPPLY Qty: 100 11RF Rx Instructions: 1 daily Discharge Orders: Discharge Order (Routine); Ordered 01/27/23 Ordered By: Julian Werner Referrals: Chava Mix MD [Primary Care Provider] - 02/02/23 8:55 am Discharge Diet: Advance as tolerated, Usual diet and Cardiac Discharge Activity: Resume usual activity and Increase activity as tolerated Patient Instructions: Doxepin (By mouth), Amlodipine (By mouth), Folic Acid/Cyanocobalamin (By mouth), Weakness (DC), Hypertension (DC), Anxiety (DC), Fall Prevention (DC), Opioid Safety, Pain Management Activity Restrictions/Additional Instructions: 1. Take medications as prescribed. 2. Follow up with PCP with blood pressure log. Discharge Attestations Time Spent in Discharge Care*: greater than 30 min Quality Metrics Clinical Quality Measures [ No reported AMI, CVA or VTE this stay] Coding Level of Care Code Acute Code for Chg Fwd Diagnoses Accelerated hypertension I10 Fall W19.XXXA Weakness R53.1 B12 deficiency E53.8 Hyperlipemia E78.5 Hyperlipidemia type: unspecified Anxiety with depression F41.8 Diabetes mellitus with hyperglycemia, without long-term current use of insulin E11.65 Diabetes mellitus type: type 2
== END 2023-01-27 14:48 | disposition home health service (06) ==
LOC: ER 11:23 → CSU 16:43
PROVIDERS: Admitting Provider Student in an Organized Health Care Education/Training Program; Emergency Provider Family Medicine; PCP Family Medicine; Visit Provider Internal Medicine
DX: R53.1 Weakness (principal); I10 Essential (primary) hypertension; Z91.81 History of falling; E53.8 Deficiency of other specified B group vitamins; E78.5 Hyperlipidemia, unspecified; F41.8 Other specified anxiety disorders; E11.65 Type 2 diabetes mellitus with hyperglycemia; I48.91 Unspecified atrial fibrillation; K21.9 Gastro-esophageal reflux disease without esophagitis; Z66 Do not resuscitate
CPT/HCPCS: 36415; 36416; 70450; 71045; 74176; 80053; 81001; 82550; 82607; 82746; 82962; 83540; 83550; 83735; 84100; 84484; 85025; 87086; 87324; 87449; 90471; 90686; 93005; 93306; 94664; 96361; 96372; 96374; 96376; 97110; 97161; 99285; A9270; G0378; J0360; J1644; J1815; J2270; J2405; J3420; J3475; J7030

== ENCOUNTER → 2023-06-04 12:39 | Outpatient (BNVA) | payer MEDICARE, MEDICAID, SELFPAY | PROVIDERS: PCP Family Medicine; Visit Provider Internal Medicine Cardiovascular Disease | DX: E78.5 Hyperlipidemia, unspecified (principal); E11.65 Type 2 diabetes mellitus with hyperglycemia; I10 Essential (primary) hypertension; F41.8 Other specified anxiety disorders; R53.1 Weakness; G47.00 Insomnia, unspecified; Z79.84 Long term (current) use of oral hypoglycemic drugs | CPT/HCPCS: 99214 ==

== ENCOUNTER 2024-02-08 16:14 | Emergency (ER) | payer MEDICARE, MEDICAID, SELFPAY ==
[2024-02-08 16:21] VITALS: BP 107/72; PULSE 66; RESP 18; TEMP 36.7; O2SAT 96; BMI 21.7
[2024-02-08 18:46] LABS: Glucose Point of Care 239 mg/dL (70-110)
--- NOTE | 2024-02-08 22:23 | XRR_ITS ---
PROCEDURE INFORMATION: Exam: XR Sacrum and Coccyx, 2 or More Views Exam date and time: 02/08/2024 10:32 PM Age: 78 years old Clinical indication: Injury or trauma; Fall; Blunt trauma (contusions or hematomas); Prior surgery; Surgery date: 6+ months; Surgery type: Lumbar; Additional info: Fall pain TECHNIQUE: Imaging protocol: XR of the sacrum and coccyx, 2 or more views. COMPARISON: CT kidney stone [id number] 01/24/2023 11:56 AM FINDINGS: Bones/joints: Normal. No acute fracture. Soft tissues: Normal. XR/XR sacrum coccyx min 2V [id number] IMPRESSION: No acute findings. If concern for fracture or dislocation remains clinically consider further evaluation with a CT scan.
--- NOTE | 2024-02-08 22:23 | XRR_ITS ---
PROCEDURE INFORMATION: Exam: XR Chest Exam date and time: 02/08/2024 10:27 PM Age: 78 years old Clinical indication: Other: Weakness TECHNIQUE: Imaging protocol: Radiologic exam of the chest. Views: 1 view. COMPARISON: CR XR chest 1V portable [id number] 01/24/2023 9:15 AM FINDINGS: Lungs: Left lower lobe atelectasis. Pleural spaces: Unremarkable. No pleural effusion. No pneumothorax. Heart/Mediastinum: Unremarkable. No cardiomegaly. Bones/joints: Unremarkable. XR/XR chest 1V portable [id number] IMPRESSION: Left lower lobe atelectasis.
--- NOTE | 2024-02-08 22:24 | ECG_ITS ---
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1945 Requested By: Efe Mayfield Order Number: [id number] Reading MD: KIANNA PAUL Measurements Intervals [place] Rate: 70 P: 68 WI: 147 QRS: 29 QRSD: 155 T: 29 QT: 445 QTc: 480 Interpretive Statements SINUS RHYTHM RIGHT BUNDLE BRANCH BLOCK [120+ ms QRS DURATION, UPRIGHT V1, 40+ ms S IN I/aVL/V4/V5/V6] ST DEPRESSION, CONSIDER SUBENDOCARDIAL INJURY [0.1+ mV ST DEPRESSION] Compared to ECG 01/24/2023 10:47:48 Sinus tachycardia no longer present ST (T wave) deviation still present Electronically Signed On 02-10-2024 17:34:46 NUTRITION CONSULTANT by KIANNA PAUL [email or web address]
--- NOTE | 2024-02-08 22:25 | ED_ITS ---
HPI - Weakness 2 General: Chief complaint: Weakness Stated complaint: general weakness Time Seen by Provider: 02/08/24 22:14 History of Present Illness: Patient presents to the ER with complaints of weakness x 5 days. She fell at home 3 days ago and is has bruising to her left cheek and pain in her coccygeal area. Patient says her blood pressures got all way down in the 60s. She reports feeling weak dizzy lightheaded like she is going to pass out. Dizziness is worse upon movement. Patient received 300 mL of normal saline by EMS on route. Patient denies any coughs colds fevers chills nausea vomiting diarrhea overt sickness Review of Systems 2 General: Reports: 10 or more systems reviewed and unremarkable except in HPI and below PFSH ED 2 PFSH: Medical History B12 deficiency Accelerated hypertension Weakness Fall Urinary hesitancy Anxiety with depression Vitamin D deficiency Atrial flutter with rapid ventricular response Atrial flutter by electrocardiogram Nodule of kidney Right 16mm seen [facility] [address] 2019 Diabetes mellitus with hyperglycemia, without long-term current use of insulin Postnasal drip Pulmonary nodule Dorsalgia, unspecified DDD (degenerative disc disease), lumbar Lumbar spondylosis Opioid contract exists Encounter for long-term use of opiate analgesic Acute bilateral low back pain without sciatica Insomnia Chronic GERD Hyperlipemia Hypertension Back pain with history of spinal surgery Surgical History Hx of hysterectomy History of adenectomy Hx of cholecystectomy History of back surgery 3 times on lumbar History of appendectomy Family History Mother CAD (coronary artery disease) Cancer Dementia Father CAD (coronary artery disease) Denies family history of Diabetes Clotting disorder Chronic kidney disease (CKD) Suicide Anesthesia complication Bleeding disorder Lung disease Stroke Social History Smoking and tobacco/nicotine status: never used tobacco/nicotine Second hand smoke exposure: No Alcohol intake: never Substance/Drug Use: never Adopted: No Caregiver/support person: No Lives independently: Yes Household members: spouse Housing: House Marital status: / Current occupational status: disabled Do you think of yourself as: Straight/Heterosexual Current gender identity: Female Physical Exam 2 Const: COMMON NORMALS: no acute distress, average body habitus, patient oriented x3, no limitations, healthy appearing, alert and well nourished HENMT: COMMON NORMALS: normocephalic, hearing grossly normal bilaterally, external ears normal, Normal external nose present and moist oral mucous membranes; head/scalp not atraumatic (Facial bruising on the left side) HEAD & SCALP: n ormocephalic; not atraumatic (Facial bruising on the left side) NOSE: Normal external nose present EXTERNAL EAR: Yes external ears normal Eye: COMMON NORMALS: Equal, round and reactive pupils present, EOMs intact bilaterally, conjunctivae normal and no scleral icterus CONJUNCTIVA: Yes conjunctivae normal PUPIL: Yes Equal, round and reactive pupils present Neck/C-Spine: COMMON NORMALS: full ROM, no lymphadenopathy, no meningeal signs, no JVD and Thyroid normal THYROID: Thyroid normal Chest: COMMONS NORMALS: normal inspection of the chest and normal palpation of entire chest wall Resp: COMMON NORMALS: normal respiratory effort, No retractions, No use of accessory muscles and clear to auscultation bilaterally AUSCULTATION: clear to auscultation bilaterally Cardio: COMMON NORMALS: no JVD, regular rate, regular rhythm, S1 normal heart sound present, S2 normal heart sound present, No gallops present (Cardio), No clicks present (Cardio), No murmurs present (Cardio) and No rub (Cardio) R ATE: regular rate RHYTHM: regular rhythm HEART SOUNDS: S1 normal heart sound present and S2 normal heart sound present GI: COMMON NORMALS: Normal to inspection, nondistended, normoactive bowel sounds present, Soft to palpation, non-tender, No hepatosplenomegaly present and no masses PALPATION: Yes Soft to palpation and Yes No hepatosplenomegaly present Neuro: COMMON NORMALS: patient oriented x3 SENSORIUM/ORIENTATION: Yes alert MENINGEAL SIGNS: Yes no meningeal signs Course 2 Vital Signs: Vital signs: Vital Signs Temperature 98.1 F 02/08/24 16:21 Pulse Rate 71 02/08/24 23:30 Respiratory Rate 16 02/08/24 23:30 Blood Pressure 146/89 02/08/24 23:30 Pulse Oximetry 92 02/08/24 23:30 Oxygen Delivery Me thod Room Air 02/08/24 16:21 MDM - Weakness Medical Decision Making Patient routine lab work done. CBC CMP, showed potassium 3.0, chest x-ray showed left lower lobe atelectasis, sacrum coccyx x-ray was negative, urinalysis showed 11-20 white blood cells and no leukocyte Estrace or nitrates. Patient was given 1 [place] 5 and 40 mEq oral potassium and she said the pain is started to get better. Patient uses [facility]. Patient be discharged home. Medical Records I reviewed the patient's medical records. Lab Data I reviewed the patient's lab results. 02/08/24 22:40 02/08/24 22:40 Radiology Impressions Chest X-Ray 02/08/24 22:23 IMPRESSION: Left lower lobe atelectasis. Sacrum and Coccyx X-Ray 02/08/24 22:23 IMPRESSION: No acute findings. If concern for fracture or dislocation remains clinically consider further evaluation with a CT scan. Laboratory Results WBC 12.04 10^3/uL (3.29-11.43) H 02/08/24 22:40 RBC 5.28 10^6/uL (3.85-5.65) 02/08/24 22:40 Hgb 12.80 g/dL (11.27-16.99) 02/08/24 22:40 Hct 41.7 % (36-47) 02/08/24 22:40 MCV 79.0 fl (85-98) L 02/08/24 22:40 MCH 24.2 pg (27-33) L 02/08/24 22:40 MCHC 30.7 g/dL (30-55) 02/08/24 22:40 RDW 16.3 % (12.1-15.1) H 02/08/24 22:40 Plt Count 481 10^3/cmm (157-399) H 02/08/24 22:40 MPV 9.3 fL (7.4-10.4) 02/08/24 22:40 Neut % (Auto) 61.3 % 02/08/24 22:40 Lymph % (Auto) 27.5 % 02/08/24 22:40 Pine % (Auto) 8.5 % 02/08/24 22:40 Eos % (Auto) 1.7 % 02/08/24 22:40 Baso % (Auto) 0.7 % 02/08/24 22:40 Neut # (Auto) 7.38 10^3/uL (1.8-7.7) 02/08/24 22:40 Lymph # (Auto) 3.3 10^3/uL (0.8-4.8) 02/08/24 22:40 Pine # (Auto) 1.0 10^3/uL (0.2-0.9) H 02/08/24 22:40 Eos # (Auto) 0.2 10^3/uL (0.0-0.8) 02/08/24 22:40 Baso # (Auto) 0.1 10^3/uL (0.0-0.1) 02/08/24 22:40 Nucleated RBC % (auto) 0 % 02/08/24 22:40 Nucleated RBCs # 0.0 /100WBC 02/08/24 22:40 Sodium 135 mmol/L (136-145) L 02/08/24 22:40 Potassium 3.0 mmol/L (3.5-5.1) L 02/08/24 22:40 Chloride 93 mmol/L (98-107) L 02/08/24 22:40 Carbon Dioxide 29 mmol/L (22-29) 02/08/24 22:40 Anion Gap 16.0 (5-19) 02/08/24 22:40 BUN 20 mg/dL (8-23) 02/08/24 22:40 Creatinine 1.2 mg/dL (0.5-0.9) H 02/08/24 22:40 GFR Calculation Not Reportable 02/08/24 22:40 Glucose 152 mg/dL (65-115) H 02/08/24 22:40 POC Glucose 239 mg/dL (70-110) H 02/08/24 18:41 Calculated Osmolality 286 mOsm/kg (285-295) 02/08/24 22:40 Calcium 9.2 mg/dL (8.5-10.5) 02/08/24 22:40 Magnesium 2.1 mg/dL (1.7-2.3) 02/08/24 22:40 Total Bilirubin 0.4 mg/dL (0.15-1.2) 02/08/24 22:40 AST 12 U/L (0-32) 02/08/24 22:40 ALT 7 U/L (0-33) 02/08/24 22:40 Alkaline Phosphatase 68 U/L (35-105) 02/08/24 22:40 Troponin T Baseline 12 ng/L (0-10) H 02/08/24 22:40 Total Protein 7.1 g/dL (6.6-8.7) 02/08/24 22:40 Albumin 4.3 g/dL (3.5-5.2) 02/08/24 22:40 Globulin 2.8 g/dL (1.3-4.6) 02/08/24 22:40 Lipase 30 U/L (13-60) 02/08/24 22:40 Urine Color Yellow (Yellow) 02/08/24 23:17 Urine Appearance Clear (CLEAR) 02/08/24 23:17 Urine pH 5.5 (5-7) 02/08/24 23:17 Ur Specific [place] 1.028 (1.005-1.030) 02/08/24 23:17 Urine Protein Negative (Negative) 02/08/24 23:17 Urine Glucose (UA) 3+ (Normal) H 02/08/24 23:17 Urine Ketones Negative (Negative) 02/08/24 23:17 Urine Blood Negative (Negative) 02/08/24 23:17 Urine Nitrate Negative (Negative) 02/08/24 23:17 Urine Bilirubin Negative (Negative) 02/08/24 23:17 Urine Urobilinogen 1.0 mg/dL (Negative) 02/08/24 23:17 Ur Leukocyte Esterase Negative (Negative) 02/08/24 23:17 Urine RBC 0-2 /hpf (0-2) 02/08/24 23:17 Urine WBC 11-20 /hpf (0-5) H 02/08/24 23:17 Ur Squamous Epith Cells 0-5 /hpf (0-5) 02/08/24 23:17 Amorphous Sediment Not Reportable 02/08/24 23:17 Urine Bacteria Trace /hpf (NONE) 02/08/24 23:17 Hyaline Casts 0-4 /lpf H 02/08/24 23:17 All radiology interpretation(s) finalized by discharge Discharge Plan Discharge Patient Disposition: Home Clinical Impression: Fall, Coccydynia, Acute hypokalemia Condition: Stable Prescriptions: New potassium chloride 20 mEq tablet extended release 20 meq PO BID Qty: 14 0RF No Action (DME) blood pressure monitor [Blood Pressure Kit] Kit See Rx Instructions .ROUTE .MEDSUPPLY Qty: 1 0RF Rx Instructions: As directed loperamide [Anti-Diarrheal (loperamide)] 2 mg tablet 2 mg PO Q6H PRN (Reason: Diarrhea) metformin 500 mg tablet extended release 24 hr 500 mg PO BID atorvastatin 80 mg tablet 80 mg PO DAILY 30 Days Qty: 30 2RF pantoprazole 40 mg tablet,delayed release (DR/EC) 40 mg PO DAILY 30 Days Qty: 30 2RF Rybelsus 3 mg tablet 3 mg PO DAILY 30 Days Qty: 30 0RF (DME) blood-glucose meter [True Metrix Glucose Meter] Kit See Rx Instructions .Route Qty: 1 0RF Rx Instructions: As directed (DME) True Metrix Glucose Test Strip Strip See Rx Instructions .Route Qty: 100 5RF Rx Instructions: 1 strip daily (DME) lancets [BD Ultra Fine Lancets] 33 gauge misc See Rx Instructions .ROUTE .MEDSUPPLY Qty: 100 11RF Rx Instructions: 1 daily multivitamin [Multiple Vitamins] Tablet 1 tab PO DAILY metoprolol succinate [Toprol XL] 100 mg tablet extended release 24 hr 100 mg PO BEDTIME tamsulosin [Flomax] 0.4 mg capsule 0.4 mg PO BEDTIME cyclobenzaprine 10 mg tablet 10 mg PO TID amlodipine 10 mg Tablet 10 mg PO DAILY 30 Days Qty: 30 1RF duloxetine 60 mg Capsule,Delayed Release(Dr/Ec) 60 mg PO DAILY Qty: 30 1RF doxepin 10 mg Capsule 10 mg PO BEDTIME Qty: 30 0RF chlorthalidone 25 mg tablet 25 mg PO DAILY Qty: 30 1RF Discharge Orders: Discharge ED (Routine); Ordered 02/09/24 Ordered By: Efe Mayfield Referrals: Chava Mix MD [Primary Care Provider] - 1 week Patient Instructions: Coccyx Injury (ED), Hypokalemia (ED) Activity Restrictions/Additional Instructions: Thank you for choosing [facility] for your healthcare needs today. Please realize that you were seen in the emergency department and that we are providing you with an emergency medical screening exam and this may not be a complete and all exclusive of all testing and/or medical workup we may need to determine your element or severity of your illness. It is very important that you follow-up as instructed with your primary care provider or specialist for the additional evaluation and to discuss your medical treatment plan. You may return to the emergency department should you have concerns or if your condition changes or worsens in any way. Coding Level of Care Code ED Insulation Extruder Operator for Chg Fwd Related Data Home Medications Medication Instructions Recorded Confirmed multivitamin (Multiple Vitamins 1 tab PO DAILY 09/27/19 06/04/23 tablet) loperamide 2 mg tablet 2 mg PO Q6H PRN Diarrhea 07/01/21 06/04/23 (Anti-Diarrheal (loperamide)) metoprolol succinate 100 mg 100 mg PO BEDTIME 09/29/22 06/04/23 tablet,extended release 24 hr (Toprol XL) tamsulosin 0.4 mg capsule (Flomax) 0.4 mg PO BEDTIME 09/29/22 06/04/23 cyclobenzaprine 10 mg tablet 10 mg PO TID 01/24/23 06/04/23 metformin 500 mg tablet,extended 500 mg PO BID 06/04/23 release 24 hr Previous Rx's Medication Instructions Recorded blood pressure monitor (Blood #1 ea 05/16/19 Pressure Kit) blood sugar diagnostic (True #100 ea 06/27/21 Metrix Glucose Test Strip) blood-glucose meter (True Metrix #1 ea 06/27/21 Glucose Meter kit) lancets 33 gauge (BD Ultra Fine #100 ea 06/27/21 Lancets) atorvastatin 80 mg tablet 80 mg PO DAILY 30 days #30 tabs 09/19/22 pantoprazole 40 mg tablet,delayed 40 mg PO DAILY 30 days #30 tabs 09/19/22 release semaglutide 3 mg tablet (Rybelsus) 3 mg PO DAILY 30 days #30 tabs 09/19/22 amlodipine 10 mg tablet 10 mg PO DAILY 30 days #30 tabs 01/27/23 chlorthalidone 25 mg tablet 25 mg PO DAILY #30 tabs 01/27/23 doxepin 10 mg capsule 10 mg PO BEDTIME #30 caps 01/27/23 duloxetine 60 mg capsule,delayed 60 mg PO DAILY #30 caps 01/27/23 release potassium chloride 20 mEq 20 meq PO BID #14 tabs 02/09/24 tablet,extended release Allergies Allergy/AdvReac Type Severity Reaction Status Date / Time celecoxib [From Celebrex] Allergy Severe ALGY-Swell Verified 06/04/23 12:45 Lip/Tongue/Throat gabapentin Allergy Severe ALGY-Swell Verified 06/04/23 12:45 Lip/Tongue/Throat Sulfa (Sulfonamide Allergy Severe ALGY-Swell Verified 06/04/23 12:45 Antibiotics) Lip/Tongue/Throat
[2024-02-08] MEDS: sodium chloride 0.9% 1,000 ML 999 ML IV (22:51)
[2024-02-08 22:52] VITALS: BP 146/96; PULSE 62; RESP 18; O2SAT 96
[2024-02-08 22:52] LABS: Basophils # 0.1 10^3/uL (0.0-0.1); Basophils % 0.7 %; Eosinophils # 0.2 10^3/uL (0.0-0.8); Eosinophils % 1.7 %; Hematocrit 41.7 % (36-47); Lymphocytes # 3.3 10^3/uL (0.8-4.8); Lymphocytes % 27.5 %; Mean Corpuscular HGB Conc 30.7 g/dL (30-55); Mean Corpuscular Hemoglobin 24.2 pg (27-33); Mean Platelet Volume 9.3 fL (7.4-10.4); Monocytes % 8.5 %; Neutrophils # 7.38 10^3/uL (1.8-7.7); Neutrophils % 61.3 %; Nucleated Red Blood Cells % 0 %; Platelet Count 481 10^3/cmm (157-399); Red Blood Count 5.28 10^6/uL (3.85-5.65); Red Cell Distribution Width 16.3 % (12.1-15.1); White Blood Count 12.04 10^3/uL (3.29-11.43)
[2024-02-08 23:00] VITALS: BP 136/81; PULSE 72; RESP 16; O2SAT 95
[2024-02-08 23:13] LABS: Alanine Aminotransferase 7 U/L (0-33); Albumin Level 4.3 g/dL (3.5-5.2); Alkaline Phosphatase 68 U/L (35-105); Aspartate Amino Transferase 12 U/L (0-32); Blood Urea Nitrogen 20 mg/dL (8-23); Calcium 9.2 mg/dL (8.5-10.5); Carbon Dioxide 29 mmol/L (22-29); Chloride 93 mmol/L (98-107); Creatinine Clr Calc Pharmacy 37.2334; Globulin 2.8 g/dL (1.3-4.6); Glucose 152 mg/dL (65-115); Lipase 30 U/L (13-60); Magnesium 2.1 mg/dL (1.7-2.3); Osmolality Calculated 286 mOsm/kg (285-295); Sodium 135 mmol/L (136-145); Total Bilirubin 0.4 mg/dL (0.15-1.2); Total Protein 7.1 g/dL (6.6-8.7)
[2024-02-08 23:15] LABS: Troponin(5th) Baseline 12 ng/L (0-10)
[2024-02-08 23:27] LABS: Bilirubin Urine Negative (Negative); Blood Urine Negative (Negative); Glucose Urine UA 3+ (Normal); Ketones Urine Negative (Negative); Leukocyte Esterase Urine Negative (Negative); Nitrate Urine Negative (Negative); Protein Urine Negative (Negative); Specific Gravity, Urine 1.028 (1.005-1.030); Urine Appearance Clear (CLEAR); Urine Color Yellow (Yellow); pH Urine 5.5 (5-7)
[2024-02-08 23:30] VITALS: BP 146/89; PULSE 71; RESP 16; O2SAT 92
[2024-02-08 23:32] LABS: Add Urine Microscopic? YES; Bacteria Urine Trace /hpf; Hyaline Casts Urine 0-4 /lpf; RBC Urine 0-2 /hpf (0-2); Squamous Epithelial Cell Urine 0-5 /hpf (0-5)
[2024-02-08] MEDS: HYDROcodone-acetaminophen 5-325 mg Tablet 1 TAB PO (23:49)
[2024-02-08] MEDS: potassium chloride ER 20 mEq Tablet 40 MEQ PO (23:49)
--- NOTE | 2024-02-09 00:42 | ECG_ITS ---
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1945 Requested By: Efe Mayfield Order Number: [id number] Reading MD: KIANNA PAUL Measurements Intervals [place] Rate: 75 P: 50 FL: 144 QRS: -4 QRSD: 141 T: 38 QT: 430 QTc: 480 Interpretive Statements SINUS RHYTHM RIGHT BUNDLE BRANCH BLOCK [120+ ms QRS DURATION, UPRIGHT V1, 40+ ms S IN I/aVL/V4/V5/V6] ST DEPRESSION, CONSIDER SUBENDOCARDIAL INJURY [0.1+ mV ST DEPRESSION] Compared to ECG 02/08/2024 22:53:57 No significant changes Electronically Signed On 02-10-2024 18:16:26 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
[2024-02-09 00:57] LABS: Troponin 5 2HR 11.01 ng/L (0-10)
[2024-02-09 01:00] VITALS: BP 119/86; PULSE 72; RESP 16; O2SAT 96
[2024-02-09 01:17] LABS: Troponin 5 2HR Delta -0.99 ABS# (0-10)
[2024-02-09 01:22] VITALS: BP 114/89; PULSE 76; O2SAT 96
== END 2024-02-09 01:24 | disposition home or self-care (01) ==
PROVIDERS: Emergency Provider Emergency Medicine; PCP Family Medicine
DX: E87.6 Hypokalemia (principal); M53.3 Sacrococcygeal disorders, not elsewhere classified; Z79.84 Long term (current) use of oral hypoglycemic drugs; E11.65 Type 2 diabetes mellitus with hyperglycemia; I10 Essential (primary) hypertension; E78.5 Hyperlipidemia, unspecified
CPT/HCPCS: 36415; 36416; 71045; 72220; 80053; 81001; 82962; 83690; 83735; 84484; 85025; 93005; 96360; 99285; J7030

== ENCOUNTER 2024-06-01 13:24 | Emergency (ER) | payer MEDICARE, MEDICAID, SELFPAY ==
[2024-06-01 13:29] VITALS: BP 139/86; PULSE 67; RESP 16; TEMP 36.3; O2SAT 99
--- NOTE | 2024-06-01 14:37 | CTR_ITS ---
PROCEDURE INFORMATION: Exam: CT Abdomen And Pelvis With Contrast Exam date and time: 06/01/2024 4:10 PM Age: 78 years old Clinical indication: Abdominal pain; Flank; Left upper quadrant (luq); Additional info: Abd pain TECHNIQUE: Imaging protocol: Computed tomography of the abdomen and pelvis with contrast. Radiation optimization: All CT scans at this facility use at least one of these dose optimization techniques: automated exposure control; mA and/or kV adjustment per patient size (includes targeted exams where dose is matched to clinical indication); or iterative reconstruction. Contrast material: OMNI 350; Contrast volume: 100 ml; Contrast route: INTRAVENOUS (IV); COMPARISON: 1. CT kidney stone [id number] 01/24/2023 11:[address] abdomen pelvis w con* [id number] 09/27/2019 1:16 PM RADIATION DOSE METRICS: Total DLP (mGy-cm): 372.13 FINDINGS: Lungs: Mild bibasilar atelectasis. 6 mm pleural-based nodule in the lateral basal right lower lobe previously measured 4 mm (series 3, image 4). Coronary arteries: Coronary artery calcifications. Diaphragm: Asymmetric elevation of the right hemidiaphragm. Liver: No mass. Normal size. Gallbladder and biliary ducts: Status post cholecystectomy. Extrahepatic and intrahepatic biliary ductal dilatation, similar to prior. Pancreas: The pancreas is mildly atrophic. No pancreatic ductal dilatation. Spleen: Small calcified splenic granulomas. Adrenal glands: Normal. No mass. Kidneys and ureters: Solid renal mass in the right mid kidney with peripheral calcification measures about 1.4 cm, not significantly changed since 09/27/2019. No hydronephrosis. Similar 1.8 cm cyst along the lower pole of the left kidney. Stomach and bowel: Unremarkable. No obstruction. No mucosal thickening. Appendix: Prior appendectomy. Intraperitoneal space: Unremarkable. No free air. No significant fluid collection. Vasculature: Moderate diffuse atherosclerotic aortoiliac calcifications. No abdominal aortic aneurysm. Lymph nodes: Unremarkable. No enlarged lymph nodes. Urinary bladder: Unremarkable as visualized. Reproductive: Status post hysterectomy. Bones/joints: Posterior instrumented fusion at L4-L5 with bilateral pedicle screws and vertical rods. Hardware appears intact. Moderate to advanced degenerative changes at L2-L3, similar to prior. Soft tissues: Unremarkable. CT/CT abdomen pelvis w con* [id number] IMPRESSION: 1. No acute findings in the abdomen/pelvis. 2. Solid renal mass in the right kidney with peripheral calcification has not significantly changed since 09/27/2019. 3. Biliary ductal dilatation appears longstanding and is likely related to cholecystectomy changes. 4. 6 mm pleural-based nodule in the right lower lobe has increased from 4 mm on 01/24/2023. For patients at low risk (minimal or absent history of smoking and of other known risk factors), recommend CT Chest at 6-12 months, then consider CT Chest at 18-24 months. For patients at high risk (history of smoking or of other known risk factors), recommend CT Chest at 6-12 months, then CT Chest at 18-24 months. (Reference: Behzad) COMMENTS: Consistent with the [place] [employer]'s Incidental Findings Committee white paper (J Am Prince Radiol 2018): Any incidental renal lesion less than 1 cm or classified as too small to characterize, or any incidental cystic renal lesion characterized as simple-appearing, is likely benign. No follow-up imaging is recommended for these lesions per consensus recommendations based on imaging criteria. REFERENCES: Behzad Cruz, et al. Guidelines for Management of Incidental Pulmonary Nodules Detected on CT Images: From the Fleischner Society 2017. Radiology. 2017;284(1):228-243.
--- NOTE | 2024-06-01 14:38 | ED_ITS ---
HPI - Abdominal Pain 2 General: Chief Complaint: Abdominal Pain Stated Complaint: abd pain Time Seen by Provider: 06/01/24 14:34 Source: patient Mode of arrival: ambulatory Limitations: no limitations History of Present Illness: 78-year-old female states been having le ft upper quadrant abdominal pain for the last 2 weeks. States the pains been sharp in nature and radiates to her back. She had some nausea with this pain. States she seen urgent care last week she had been on Ozempic states they stopped her Ozempic states she still having the pain. Rates pain 8 out of 10 denies any fevers denies any worse improved factors Associated Symptoms: Denies chills, diarrhea, dysuria, fever(s), nausea and vomiting Related Data Home Medications ?Medication ?Instructions ?Recorded ?Confirmed multivitamin (Multiple Vitamins 1 tab PO DAILY 0 06/01/24 tablet) metoprolol succinate 100 mg 100 mg PO BEDTIME 09/29/22 06/01/24 tablet,extended release 24 hr (Toprol XL) tamsulosin 0.4 mg capsule (Flomax) 0.4 mg PO BEDTIME 0 09/29/22 06/01/24 hydrocodone 10 mg-acetaminophen 1 tab PO Q4H PRN Pain 06/01/24 06/01/24 325 mg tablet ibuprofen 200 mg tablet (Advil) 400 mg PO Q6H PRN Feve r 06/01/24 06/01/24 Previous Rx's ?Medication ?Instructions ?Recorded blood pressure monitor (Blood #1 ea 05/16/19 Pressure Kit) blood sugar diagnostic (True #100 ea 06/27/21 Metrix Glucose Test Strip) blood-glucose meter (True Metrix #1 ea 06/27/21 Glucose Meter kit) lancets 33 gauge (BD Ultra Fine #100 ea 06/27/21 Lancets) atorvastatin 80 mg tablet 80 mg PO DAILY 30 days #30 t abs 09/19/22 pantoprazole 40 mg tablet,delayed 40 mg PO DAILY 30 da ys #30 tabs 09/19/22 release amlodipine 10 mg tablet 10 mg PO DAILY 30 days #30 t abs 01/27/23 chlorthalidone 25 mg tablet 25 mg PO DAILY #30 tabs duloxetine 60 mg capsule,delayed 60 mg PO DAILY #30 ca ps 01/27/23 release ondansetron 4 mg disintegrating 4 mg PO Q6H PRN nausea and 06/01/24 tablet vomiting #14 tabs Allergies Allergy/AdvReac Type Severity Reaction Status Date / Time celecoxib (From Celebrex) Allergy Severe ALGY-Swell Verified 06/01/24 13:34 Lip/Tongue/Throat gabapentin Allergy Severe ALGY-Swell Verified 06/01/24 13:34 Lip/Tongue/Throat Sulfa (Sulfonamide Allergy Severe ALGY-Swell Verified 06/01/24 13:34 Antibiotics) Lip/Tongue/Throat Review of Systems 2 Const: Denies: fever(s), chills, body aches or change in appetite ENMT: Denies: throat pain or dental pain Card: Denies: chest pain Resp: Denies: dyspnea GI: Reports: abdominal pain; Denies: nausea, vomiting or diarrhea : Denies: dysuria Musc: Denies: neck pain or back pain Skin/Breast: Denies: rash Neuro: Denies: headache(s) PFSH ED 2 PFSH: Medical History B12 deficiency Accelerated hypertension Weakness Fall Urinary hesitancy Anxiety with depression Vitamin D deficiency Atrial flutter with rapid ventricular response Atrial flutter by electrocardiogram Nodule of kidney Right 16mm seen [facility] [address] 2019 Diabetes mellitus with hyperglycemia, without long-term current use of insulin Postnasal drip Pulmonary nodule Dorsalgia, unspecified DDD (degenerative disc disease), lumbar Lumbar spondylosis Opioid contract exists Encounter for long-term use of opiate analgesic Acute bilateral low back pain without sciatica Insomnia Chronic GERD Hyperlipemia Hypertension Back pain with history of spinal surgery Surgical History Hx of hysterectomy History of adenectomy Hx of cholecystectomy History of back surgery 3 times on lumbar History of appendectomy Family History Mother CAD (coronary artery disease) Cancer Dementia Father CAD (coronary artery disease) Denies family history of Diabetes Clotting disorder Chronic kidney disease (CKD) Suicide Anesthesia complication Bleeding disorder Lung disease Stroke Social History Smoking and tobacco/nicotine status: never used tobacco/nicotine Second hand smoke exposure: No Alcohol intake: never Substance/Drug Use: never Adopted: No Caregiver/support person: No Lives independently: Yes Household members: spouse Housing: House Marital status: / Current occupational status: disabled Do you think of yourself as: Straight/Heterosexual Current gender identity: Female Physical Exam 2 Const: COMMON NORMALS: no acute distress, patient oriented x3 and healthy appearing HENMT: COMMON NORMALS: normocephalic and atraumatic HEAD & SCALP: n ormocephalic and atraumatic Eye: COMMON NORMALS: conjunctivae normal CONJUNCTIVA: Yes conjunctivae normal Neck/C-Spine: COMMON NORMALS: full ROM and supple Chest: COMMONS NORMALS: normal inspection of the chest Resp: COMMON NORMALS: normal respiratory effort, No retractions, No use of accessory muscles and clear to auscultation bilaterally AUSCULTATION: clear to auscultation bilaterally Cardio: COMMON NORMALS: regular rate, regular rhythm and No murmurs present (Cardio) RATE: regular rate RHYTHM: regular rhythm GI: COMMON NORMALS: Normal to inspection, nondistended, normoactive bowel sounds present, Soft to palpation and no masses PALPATION: Yes Soft to palpation OTHER: luq tenderness Extremity: COMMON NORMALS: normal to inspection and full ROM Neuro: COMMON NORMALS: patient oriented x3, moves all extremities and no focal motor deficits Psych: COMMON NORMALS: mental status grossly normal, Normal thought process present and cooperative THOUGHT PROCESS: Normal thought process present Skin: COMMON NORMALS: no rashes or lesions noted and no wounds GENERAL SKIN EXAM: no rashes or lesions noted Course 2 Vital Signs: Vital signs: Vital Signs Temperature 97.3 F L 06/01/24 13:29 Pulse Rate 77 06/01/24 17:00 Respiratory Rate 14 06/01/24 17:00 Blood Pressure 116/59 06/01/24 17:00 Pulse Oximetry 98 06/01/24 17:00 Oxygen Delivery Me thod Room Air 06/01/24 17:00 MDM - Abdominal Pain Medical Decision Making Patient presents here with abdominal pain CT of her abdomen here is normal blood works normal as well she is no signs of acute surgical abdomen we will start her on Zofran she is to follow-up with surgery she is return if worsening she understands agrees to plan. Medical Records I reviewed the patient's medical records. Lab Data I reviewed the patient's lab results. 06/01/24 15:12 06/01/24 15:12 Labs/Radiology: Radiology Impressions Abdomen/Pelvis CT 06/01/24 14:37 IMPRESSION: 1. No acute findings in the abdomen/pelvis. 2. Solid renal mass in the right kidney with peripheral calcification has not significantly changed since 09/27/2019. 3. Biliary ductal dilatation appears longstanding and is likely related to cholecystectomy changes. 4. 6 mm pleural-based nodule in the right lower lobe has increased from 4 mm on 01/24/2023. For patients at low risk (minimal or absent history of smoking and of other known risk factors), recommend CT Chest at 6-12 months, then consider CT Chest at 18-24 months. For patients at high risk (history of smoking or of other known risk factors), recommend CT Chest at 6-12 months, then [address] Chest at 18-24 months. (Reference: Behzad) COMMENTS: Consistent with the [employer]'s Incidental Findings Committee white paper (J Am Prince Radiol 2018): Any incidental renal lesion less than 1 cm or classified as too small to characterize, or any incidental cystic renal lesion characterized as simple-appearing, is likely benign. No follow-up imaging is recommended for these lesions per consensus recommendations based on imaging criteria. REFERENCES: Behzad Cruz, et al. Guidelines for Management of Incidental Pulmonary Nodules Detected on CT Images: From the Fleischner Society 2017. Radiology. 2017;284(1):228-243. Laboratory Results WBC 10.15 10^3/uL (3.29-11.43) 06/01/24 15:12 RBC 4.81 10^6/uL (3.85-5.65) 06/01/24 15:12 Hgb 12.50 g/dL (11.27-16.99) 06/01/24 15:12 Hct 41.4 % (36-47) 06/01/24 15:12 MCV 86.1 fl (85-98) 06/01/24 15:12 MCH 26.0 pg (27-33) L 06/01/24 15:12 MCHC 30.2 g/dL (30-55) 06/01/24 15:12 RDW 18.8 % (12.1-15.1) H 06/01/24 15:12 Plt Count 364 10^3/cmm (157-399) 06/01/24 15:12 MPV 9.3 fL (7.4-10.4) 06/01/24 15:12 Neut % (Auto) 54.6 % 06/01/24 15:12 Lymph % (Auto) 36.9 % 06/01/24 15:12 [place] % (Auto) 6.7 % 06/01/24 15:12 Eos % (Auto) 0.8 % 06/01/24 15:12 Baso % (Auto) 0.6 % 06/01/24 15:12 Neut # (Auto) 5.54 10^3/uL (1.8-7.7) 06/01/24 15:12 Lymph # (Auto) 3.8 10^3/uL (0.8-4.8) 06/01/24 15:12 [place] # (Auto) 0.7 10^3/uL (0.2-0.9) 06/01/24 15:12 Eos # (Auto) 0.1 10^3/uL (0.0-0.8) 06/01/24 15:12 Baso # (Auto) 0.1 10^3/uL (0.0-0.1) 06/01/24 15:12 Nucleated RBC % (auto) 0 % 06/01/24 15:12 Nucleated RBCs # 0.0 /100WBC 06/01/24 15:12 Sodium 134 mmol/L (136-145) L 06/01/24 15:12 Potassium 3.8 mmol/L (3.5-5.1) 06/01/24 15:12 Chloride 102 mmol/L (98-107) 06/01/24 15:12 Carbon Dioxide 22 mmol/L (22-29) 06/01/24 15:12 Anion Gap 13.8 (5-19) 06/01/24 15:12 BUN 9 mg/dL (8-23) 06/01/24 15:12 Creatinine 0.9 mg/dL (0.5-0.9) 06/01/24 15:12 GFR Calculation Not Reportable 06/01/24 15:12 Glucose 151 mg/dL (65-115) H 06/01/24 15:12 Calculated Osmolality 280 mOsm/kg (285-295) L 06/01/24 15:12 Calcium 9.2 mg/dL (8.5-10.5) 06/01/24 15:12 Total Bilirubin 0.7 mg/dL (0.15-1.2) 06/01/24 15:12 AST 13 U/L (0-32) 06/01/24 15:12 ALT 8 U/L (0-33) 06/01/24 15:12 Alkaline Phosphatase 57 U/L (35-105) 06/01/24 15:12 Total Protein 6.7 g/dL (6.6-8.7) 06/01/24 15:12 Albumin 3.7 g/dL (3.5-5.2) 06/01/24 15:12 Globulin 3.0 g/dL (1.3-4.6) 06/01/24 15:12 Lipase 22 U/L (13-60) 06/01/24 15:12 Urine Color Yellow (Yellow) 06/01/24 16:22 Urine Appearance Clear (CLEAR) 06/01/24 16:22 Urine pH 5.5 (5-7) 06/01/24 16:22 Ur Specific [place] 1.024 (1.005-1.030) 06/01/24 16:22 Urine Protein 1+ (Negative) A 06/01/24 16:22 Urine Glucose (UA) Negative (Normal) 06/01/24 16:22 Urine Ketones Negative (Negative) 06/01/24 16:22 Urine Blood Negative (Negative) 06/01/24 16:22 Urine Nitrate Negative (Negative) 06/01/24 16:22 Urine Bilirubin Negative (Negative) 06/01/24 16:22 Urine Urobilinogen 0.2 mg/dL (Negative) 06/01/24 16:22 Ur Leukocyte Esterase Trace (Negative) A 06/01/24 16:22 Urine RBC 0-2 /hpf (0-2) 06/01/24 16:22 Urine WBC 6-10 /hpf (0-5) 06/01/24 16:22 Ur Squamous Epith Cells 6-10 /hpf (0-5) 06/01/24 16:22 Amorphous Sediment Not Reportable 06/01/24 16:22 Urine Bacteria 1+ /hpf (NONE) H 06/01/24 16:22 Hyaline Casts 2.46 /lpf 06/01/24 16:22 All radiology interpretation(s) finalized by discharge Discharge Plan Discharge Patient Disposition: Home Clinical Impression: Abdominal pain Condition: Stable Prescriptions: New ondansetron 4 mg tablet,disintegrating 4 mg PO Q6H PRN (Reason: nausea and vomiting) Qty: 14 0RF No Action (DME) blood pressure monitor [Blood Pressure Kit] Kit See Rx Instructions .ROUTE .MEDSUPPLY Qty: 1 0RF Rx Instructions: As directed atorvastatin 80 mg tablet 80 mg PO DAILY 30 Days Qty: 30 2RF pantoprazole 40 mg tablet,delayed release (DR/EC) 40 mg PO DAILY 30 Days Qty: 30 2RF (DME) blood-glucose meter [True Metrix Glucose Meter] Kit See Rx Instructions .Route Qty: 1 0RF Rx Instructions: As directed (DME) True Metrix Glucose Test Strip Strip See Rx Instructions .Route Qty: 100 5RF Rx Instructions: 1 strip daily (DME) lancets [BD Ultra Fine Lancets] 33 gauge misc See Rx Instructions .ROUTE .MEDSUPPLY Qty: 100 11RF Rx Instructions: 1 daily multivitamin [Multiple Vitamins] Tablet 1 tab PO DAILY metoprolol succinate [Toprol XL] 100 mg tablet extended release 24 hr 100 mg PO BEDTIME tamsulosin [Flomax] 0.4 mg capsule 0.4 mg PO BEDTIME amlodipine 10 mg Tablet 10 mg PO DAILY 30 Days Qty: 30 1RF duloxetine 60 mg Capsule,Delayed Release(Dr/Ec) 60 mg PO DAILY Qty: 30 1RF chlorthalidone 25 mg tablet 25 mg PO DAILY Qty: 30 1RF hydrocodone-acetaminophen 10-325 mg tablet 1 tab PO Q4H PRN (Reason: Pain) ibuprofen [Advil] 200 mg Tablet 400 mg PO Q6H PRN (Reason: Fever) Discharge Orders: Discharge ED (Routine); Ordered 06/01/24 Ordered By: Angelica Cadena Referrals: Villa Mina MD [Physician] - 4-7 days Chava Mix MD [Primary Care Provider] - Discharge Diet: Advance as tolerated Discharge Activity: Resume usual activity Patient Instructions: Abdominal Pain (ED) Print Language: Moroccan Coding Level of Care Code ED Visitor Services Representative for Lali Oliver
[2024-06-01] MEDS: ondansetron 2 mg/ML SDV 2 mL 4 MG IVP (15:13)
[2024-06-01 15:15] VITALS: RESP 18; O2SAT 99
[2024-06-01] MEDS: morphine 4 mg/mL SDV 1 mL IVP (15:15)
[2024-06-01 15:27] LABS: Basophils # 0.1 10^3/uL (0.0-0.1); Basophils % 0.6 %; Eosinophils # 0.1 10^3/uL (0.0-0.8); Eosinophils % 0.8 %; Hematocrit 41.4 % (36-47); Lymphocytes # 3.8 10^3/uL (0.8-4.8); Lymphocytes % 36.9 %; Mean Corpuscular HGB Conc 30.2 g/dL (30-55); Mean Corpuscular Volume 86.1 fl (85-98); Mean Platelet Volume 9.3 fL (7.4-10.4); Monocytes # 0.7 10^3/uL (0.2-0.9); Monocytes % 6.7 %; Neutrophils # 5.54 10^3/uL (1.8-7.7); Neutrophils % 54.6 %; Nucleated Red Blood Cells % 0 %; Platelet Count 364 10^3/cmm (157-399); Red Blood Count 4.81 10^6/uL (3.85-5.65); Red Cell Distribution Width 18.8 % (12.1-15.1); White Blood Count 10.15 10^3/uL (3.29-11.43)
[2024-06-01 15:34] VITALS: BP 153/91; PULSE 66; O2SAT 95
[2024-06-01 15:49] LABS: Alanine Aminotransferase 8 U/L (0-33); Albumin Level 3.7 g/dL (3.5-5.2); Alkaline Phosphatase 57 U/L (35-105); Anion Gap 13.8 (5-19); Aspartate Amino Transferase 13 U/L (0-32); Blood Urea Nitrogen 9 mg/dL (8-23); Calcium 9.2 mg/dL (8.5-10.5); Carbon Dioxide 22 mmol/L (22-29); Chloride 102 mmol/L (98-107); Creatinine Clr Calc Pharmacy 48.4449; Glucose 151 mg/dL (65-115); Lipase 22 U/L (13-60); Osmolality Calculated 280 mOsm/kg (285-295); Potassium 3.8 mmol/L (3.5-5.1); Sodium 134 mmol/L (136-145); Total Bilirubin 0.7 mg/dL (0.15-1.2); Total Protein 6.7 g/dL (6.6-8.7)
[2024-06-01 16:00] VITALS: BP 150/91; PULSE 71; RESP 97; O2SAT 96
--- NOTE | 2024-06-01 16:06 | PC.PHAR ---
Patient states she is no longer taking Ozempic, Metformin , and Jardiance.
[2024-06-01] MEDS: iohexol 350 mg/mL 500 mL Btl (per mL) IV (16:18)
[2024-06-01 17:00] VITALS: BP 116/59; PULSE 77; RESP 14; O2SAT 98
[2024-06-01 17:13] LABS: Bilirubin Urine Negative (Negative); Blood Urine Negative (Negative); Glucose Urine UA Negative (Normal); Ketones Urine Negative (Negative); Leukocyte Esterase Urine Trace (Negative); Nitrate Urine Negative (Negative); Protein Urine 1+ (Negative); Specific Gravity, Urine 1.024 (1.005-1.030); Urine Appearance Clear (CLEAR); Urine Color Yellow (Yellow); Urobilinogen Urine 0.2 mg/dL (Negative); pH Urine 5.5 (5-7)
[2024-06-01 17:16] LABS: Add Urine Microscopic? YES; Bacteria Urine 1+ /hpf; Hyaline Casts Urine 2.46 /lpf; RBC Urine 0-2 /hpf (0-2)
[2024-06-01 17:43] VITALS: BP 127/80; PULSE 69; O2SAT 96
--- NOTE | 2024-06-02 08:08 | DCPLANNER ---
messaged gen surg for er f/u
== END 2024-06-01 17:45 | disposition home or self-care (01) ==
PROVIDERS: Emergency Provider Emergency Medicine; PCP Family Medicine
DX: R10.12 Left upper quadrant pain (principal); I10 Essential (primary) hypertension; E78.5 Hyperlipidemia, unspecified
CPT/HCPCS: 74177; 80053; 81001; 83690; 85025; 96374; 96375; 99285; J2270; J2405

== ENCOUNTER → 2024-06-30 13:41 | Outpatient (BNVA) | payer MEDICARE, MEDICAID, SELFPAY | PROVIDERS: PCP Family Medicine; Visit Provider Student in an Organized Health Care Education/Training Program | DX: R10.9 Unspecified abdominal pain (principal) | CPT/HCPCS: 99204 ==

== ENCOUNTER 2024-07-19 14:55 | Inpatient (IN) | payer MEDICARE, MEDICAID, SELFPAY ==
[2024-07-19] VITALS (15 sets, daily range): BP systolic 146–176; BP diastolic 82–121; PULSE 63–90; RESP 4–24; TEMP 36.3–37.1; O2SAT 94–99; BMI 22.2; BMI 23.1
[2024-07-19 09:42] LABS: Glucose Point of Care 152 mg/dL (70-110)
[2024-07-19] MEDS: sodium chloride 0.9% 500 ML 30 ML IV ×2 (09:43→11:42)
--- NOTE | 2024-07-19 10:29 | ANES.PREANE2 ---
Pre-Anesthetic Assessment Height/Weight: Height 1.68 m Weight 62.596 kg Temp Pulse Resp BP Pulse Ox O2 Del Method 98.7 F 63 13 146/82 96 Room Air 07/19/24 09:24 07/19/24 09:24 07/19/24 09:24 07/19/24 09:24 07/19/24 09:24 07/19/24 09:24 Operation Date: 07/19/24 10:30 Proposed Procedures p [id number], [id number],G0121, R10.9, K57.90,(Not Applicable) - Villa Mina MD s Colonoscopy(Not Applicable) - Villa Mina MD Familial anesthetic complications: None Was Beta Max taken within 24 hours: N/A Was Clonidine taken within 24 hours: N/A Last intake: Intake Last Liquid Date 07/18/24 Last Liquid Time 23:00 Last Solid Date 07/17/24 Last Solid Time 18:00 Social No alcohol and No tobacco Exam alert, oriented x 3, clear to auscultation bilaterally and regular rate & rhythm Airway Mallampati: Class I Dentition: false CV/HEM Atrial Fibrillation (patient does not recognize having this condition, it is listed her history and cardiology note) and Hypertension GI Gastroesophageal Reflux Disease Metabolic Diabetes Mellitus Anesthetic Plan ASA status: 3 Anesthesia: MAC Risk of > 500 ml blood loss (7ml/kg in children): No Medications/Allergies Home Medications ?Medication ?Instructions ?Recorded ?Confirmed ?Last Taken ?Type blood pressure monitor (Blood #1 ea 05/16/19 07/19/24 Unknown Rx Pressure Kit) multivitamin (Multiple Vitamins 1 tab PO DAILY 09/27/19 07/19/24 07/12/24 History tablet) blood sugar diagnostic (True #100 ea 06/27/21 07/19/24 Unknown Rx Metrix Glucose Test Strip) blood-glucose meter (True Metrix #1 ea 06/27/21 07/19/24 Unknown Rx Glucose Meter kit) lancets 33 gauge (BD Ultra Fine #100 ea 06/27/21 07/19/24 Unknown Rx Lancets) atorvastatin 80 mg tablet 80 mg PO DAILY 30 days #30 tabs 09/19/22 07/19/24 07/12/24 Rx pantoprazole 40 mg tablet,delayed 40 mg PO DAILY 30 days #30 tabs 0607/19/24 07/12/24 Rx release metoprolol succinate 100 mg 100 mg PO BEDTIME 09/29/22 07/19/24 07/12/24 History tablet,extended release 24 hr (Toprol XL) tamsulosin 0.4 mg capsule (Flomax) 0.4 mg PO BEDTIME 09/29/22 07/19/24 07/12/24 History amlodipine 10 mg tablet 10 mg PO DAILY 30 days #30 tabs 01/27/23 07/19/24 07/19/24 Rx duloxetine 60 mg capsule,delayed 60 mg PO DAILY #30 caps 01/27/23 07/19/24 07/12/24 Rx release hydrocodone 5 mg-acetaminophen 325 1 tab PO Q6H PRN pain #14 tabs 06/01/24 07/19/24 07/19/24 Rx mg tablet ibuprofen 200 mg tablet (Advil) 400 mg PO Q6H PRN Fever Or Pain 06/01/24 07/19/24 07/12/24 History empagliflozin [Jardiance] 25 mg PO DAILY 06/30/24 07/19/24 07/12/24 History rivaroxaban 15 mg tablet (Xarelto) 15 mg PO DAILY 06/30/24 07/19/24 07/16/24 History sitagliptin phosphate 100 mg 100 mg PO QDAY 06/30/24 07/19/24 07/12/24 History tablet (Januvia) Allergies Allergy/AdvReac Type Severity Reaction Status Date / Time celecoxib (From Celebrex) Allergy Severe ALGY-Swell Verified 07/19/24 09:20 Lip/Tongue/Throat gabapentin Allergy Severe ALGY-Swell Verified 07/19/24 09:20 Lip/Tongue/Throat Sulfa (Sulfonamide Allergy Severe ALGY-Swell Verified 07/19/24 09:20 Antibiotics) Lip/Tongue/Throat Current Medications Generic Name Dose Route Start Last Admin Trade Name Freq PRN Reason Stop Dose Admin Sodium Chloride 500 mls @ 30 mls/hr 07/19/24 09:30 07/19/24 09:43 Sodium Chloride 0.9% IV 30 mls/hr .[id number] SOLEDAD Administration PFSH Anesthesia Medical History B12 deficiency Accelerated hypertension Weakness Fall Urinary hesitancy Anxiety with depression Vitamin D deficiency Atrial flutter with rapid ventricular response Atrial flutter by electrocardiogram Nodule of kidney Right 16mm seen [facility] [address] 2019 Diabetes mellitus with hyperglycemia, without long-term current use of insulin Postnasal drip Pulmonary nodule Dorsalgia, unspecified DDD (degenerative disc disease), lumbar Lumbar spondylosis Opioid contract exists Encounter for long-term use of opiate analgesic Acute bilateral low back pain without sciatica Insomnia Chronic GERD Hyperlipemia Hypertension Back pain with history of spinal surgery Surgical History Hx of hysterectomy History of adenectomy Hx of cholecystectomy History of back surgery 3 times on lumbar History of appendectomy Family History Mother CAD (coronary artery disease) Cancer Dementia Father CAD (coronary artery disease) Denies family history of Diabetes Clotting disorder Chronic kidney disease (CKD) Suicide Anesthesia complication Bleeding disorder Lung disease Stroke Social History Smoking and tobacco/nicotine status: never used tobacco/nicotine Second hand smoke exposure: No Alcohol intake: never Substance/Drug Use: never Adopted: No Caregiver/support person: No Lives independently: Yes Household members: spouse Housing: House Marital status: / Current occupational status: disabled Do you think of yourself as: Straight/Heterosexual Current gender identity: Female Data Anesthesia Cardiac Studies: Echocardiogram 01/25/23
--- NOTE | 2024-07-19 11:38 | W.PM.OPSUD ---
Surgery/Procedure H&P Update DATE OF PROCEDURE: July 19, 2024 DATE H&P PERFORMED: 06/30/24 H&P UPDATE INFORMATION: I have reviewed H&P completed within last 30 days, I have examined patient prior to procedure and No changes to prior documentation PLANNED PROCEDURE: Operation Date: 07/19/24 10:30 Proposed Procedures p [id number], 87210,G0121, R10.9, K57.90,(Not Applicable) - Villa Mina MD s Colonoscopy(Not Applicable) - Villa Mina MD
--- NOTE | 2024-07-19 12:00 | SUR.OPER ---
Shortly after start of colonoscopy, case halted due to suspected perforation. Scope removed. Dr. Mina consulted Dr. Giang via phone. Case aborted. Charge nurse, Swetha, notified of possible perforation. Orders per Dr. Mina for stat CT. CT notified. Pt arousable to verbal stimuli. VSS. Pt to CT via stretcher with portable monitor in place. Scan complete. Pt returned to GI lab, [place], for Phase II recovery. Pt family notified. Dr. Mina speaking to family. Pt to go to OR for surgery. OR team notified.
--- NOTE | 2024-07-19 12:09 | CT_ITS ---
WS: [id number] CT ABDOMEN AND PELVIS NONCONTRAST HISTORY: POST PROCEDURE, colonoscopy. TECHNIQUE: Imaging performed through the abdomen and pelvis. Coronal and sagittal reformats are submitted. All CT scans at [facility] use at least one of these dose optimization techniques: automated exposure control; mA and/or kV adjustment per patient size (includes targeted exams where dose is matched to clinical indication); or iterative reconstruction. DLP: 455.73 mGy COMPARISON: 06/01/2024 Lower thorax: Dependent changes at the lung bases with motion. Mild cardiomegaly. Coronary artery calcifications. Small hiatal hernia. There is a large amount of intraperitoneal free air. Mild fluid distention of the colon. Site of the perforation may be in the sigmoid colon as there is a small collection of air extending through the wall and there are several adjacent air foci. Liver: Normal size liver. No mass or bile duct dilatation. Gallbladder: Cholecystectomy. Pancreas: Atrophied. Spleen: Normal. Adrenal glands: Normal. No mass. Right kidney: No obstruction. High density mass with calcification anterior mid RIGHT kidney measures 13 mm and has been previously described. No obstruction. Left kidney: Normal size kidney with no mass or hydronephrosis. Aorta: Moderate to severe atherosclerosis abdominal aorta. No aneurysm. Atherosclerosis continues into the common iliac arteries. Pelvis: No free fluid. Osseous structures: Prior lumbar fusion at L4-5. CT/CT abdomen pelvis wo con [id number] IMPRESSION: 1. Large amount of intraperitoneal free air. Consistent with perforated viscus . Suspect the perforation may be in the sigmoid due to the distribution of air. 2. No free fluid. 3. Fluid distended colon. 4. Prior cholecystectomy. 5. Stable RIGHT renal mass containing calcification. No significant increase i n size since 2019. Notified Villa Mina MD at 07/19/2024 12:25 PM.
[2024-07-19] MEDS: ondansetron 2 mg/ML SDV 2 mL 4 MG IVP (12:18)
--- NOTE | 2024-07-19 12:28 | PM.MISC ---
Miscellaneous Note Note: CT with free air. Discussed findings with patient and daughter. They agree to proceed to OR for exploratory laparotomy, possible bowel resection, possible ostomy.
[2024-07-19] MEDS: fentaNYL 50 mcg/mL INJ 2mL IVP (12:32)
[2024-07-19] MEDS: piperacillin-tazobactam 3.375 GM in sodium chloride 0.9% (plus) 50 ML IV ×2 (13:05→20:11)
--- NOTE | 2024-07-19 14:34 | P.BOP_ITS ---
Date of Procedure: 07/19/24 Surgeon: Dr. Mina Java Flex Developer(s): Dr. Giang Procedure(s) performed: Exploratory laparotomy. Primary repair of proximal rectum in two layers. Intraoperative flexible sigmoidoscopy. Findings of the procedure(s): 3cm tear of proximal rectum. Repaired primarily in two layers using 3-0 vicryl and 3-0 silk. Performed intraoperative flexible sigmoidoscopy, negative leak test. Able to advance scope proximal to repair, which confirmed a patent sigmoid colon proximal to the repair. Estimated blood loss: 50cc Specimen(s) removed: N/A Post-operative diagnosis: Iatrogenic rectal perforation
--- NOTE | 2024-07-19 15:02 | SUR.OPER ---
1405 Serial #[id number] Single one time adapter was used.
--- NOTE | 2024-07-19 15:03 | PM.CONSULT ---
Providers/Reason For Consult Consulting Physician/Specialty*: Hospitalist/internal medicine Reason for Consult*: Medical comorbidities Attending Physician: Villa Mina MD Primary Care Provider: Chava Mix MD History of Present Illness History of Present Illness Rosenda Shah is a 78 year old female with past medical history of hypertension, type 2 diabetes mellitus, atrial fibrillation on chronic Xarelto which she last took on Thursday. Today is close state. Patient underwent EGD and colonoscopy follow-up chronic abdominal pain given history of diverticulosis today with surgical team. During procedure colonoscopy had to be aborted as patient developed rectosigmoid tear which was later repaired along with expiratory laparotomy and confirmed repair through the intraoperative flexible sigmoidoscopy. Patient seen in ICU. Awake and alert with family at bedside. Complaining of abdominal pain. Denies any nausea, vomiting. Heart rate of 90 bpm with blood pressure of 140/96 mmHg, NG tube in place. Saturating 90% on room air. Review of Systems General: Reports: 10 or more systems reviewed and unremarkable except in HPI and below Const: Denies: fever(s), chills, body aches, change in appetite, change in weight, malaise, night sweats, diaphoresis, change in sleep pattern, daytime sleepiness or snoring Eyes: Denies: change in vision, blurry vision, photophobia, eye discomfort or eye discharge ENMT: Denies: throat pain, enlarged tonsils, hoarseness, mouth pain, oral sores, dry mouth, tinnitus, nasal congestion or post nasal drip Card: Denies: chest pain, palpitations, irregular heart rhythm, edema, swelling of feet/ankles, lightheadedness, syncope, pre-syncope, dyspnea on exertion, orthopnea, leg pain with exertion or acrocyanosis Resp: Denies: dyspnea, productive cough, non-productive cough, wheezing, stridor, pain on inspiration, change in phlegm color, hemoptysis or chest congestion GI: Denies: abdominal pain, nausea, vomiting, hematemesis, coffee ground emesis, dysphagia, heartburn, diarrhea, constipation, bloating, GI cramping, change in bowel habits, pain on defecation, hematochezia or melena : Denies: flank pain, dysuria, urinary frequency, urinary urgency, urinary hesitancy, nocturia or hematuria Musc: Denies: neck pain, back pain, extremity pain, joint pain, joint swelling, joint redness, joint stiffness or limited range of motion Neuro: Denies: headache(s), numbness in extremities, weakness in extremities, sensory changes, lack of coordination, difficulty walking, frequent falls, dizziness, vertigo, confusion, Slurred speech present, difficulty communicating thoughts or seizure-like activity Psych: Denies: anxiety, depression, mood swings, panic attacks, hopelessness or irritability Endo: Denies: polyuria, polydipsia, tired all the time, cold intolerance, excessive sweating, flushing or heat intolerance Sim/Lymph: Denies: easy bruising or easy bleeding All/Imm: Denies: tongue swelling, facial swelling or acute wheezing Medications/Allergies Home Medications ?Medication ?Instructions ?Recorded ?Confirmed ?Last Taken ?Type blood pressure monitor (Blood #1 ea 05/16/19 07/19/24 Unknown Rx Pressure Kit) multivitamin (Multiple Vitamins 1 tab PO DAILY 09/27/19 07/19/24 07/12/24 History tablet) blood sugar diagnostic (True #100 ea 06/27/21 07/19/24 Unknown Rx Metrix Glucose Test Strip) blood-glucose meter (True Metrix #1 ea 06/27/21 07/19/24 Unknown Rx Glucose Meter kit) lancets 33 gauge (BD Ultra Fine #100 ea 06/27/21 07/19/24 Unknown Rx Lancets) atorvastatin 80 mg tablet 80 mg PO DAILY 30 days #30 tabs 09/19/22 07/19/24 07/12/24 Rx pantoprazole 40 mg tablet,delayed 40 mg PO DAILY 30 days #30 tabs 09/19/22 07/19/24 07/12/24 Rx release metoprolol succinate 100 mg 100 mg PO BEDTIME 09/29/22 07/19/24 07/12/24 History tablet,extended release 24 hr (Toprol XL) tamsulosin 0.4 mg capsule (Flomax) 0.4 mg PO BEDTIME 09/29/22 07/19/24 07/12/24 History amlodipine 10 mg tablet 10 mg PO DAILY 30 days #30 tabs 01/27/23 07/19/24 07/19/24 Rx duloxetine 60 mg capsule,delayed 60 mg PO DAILY #30 caps 01/27/23 07/19/24 07/12/24 Rx release hydrocodone 5 mg-acetaminophen 325 1 tab PO Q6H PRN pain #14 tabs 06/01/24 07/19/24 07/19/24 Rx mg tablet ibuprofen 200 mg tablet (Advil) 400 mg PO Q6H PRN Fever Or Pain 06/01/24 07/19/24 07/12/24 History empagliflozin [Jardiance] 25 mg PO DAILY 06/30/24 07/19/24 07/12/24 History rivaroxaban 15 mg tablet (Xarelto) 15 mg PO DAILY 06/30/24 07/19/24 07/16/24 History sitagliptin phosphate 100 mg 100 mg PO QDAY 06/30/24 07/19/24 07/12/24 History tablet (Januvia) Allergies Allergy/AdvReac Type Severity Reaction Status Date / Time celecoxib (From Celebrex) Allergy Severe ALGY-Swell Verified 07/19/24 09:20 Lip/Tongue/Throat gabapentin Allergy Severe ALGY-Swell Verified 07/19/24 09:20 Lip/Tongue/Throat Sulfa (Sulfonamide Allergy Severe ALGY-Swell Verified 07/19/24 09:20 Antibiotics) Lip/Tongue/Throat Current Medications Generic Name Dose Route Start Last Admin Trade Name Freq PRN Reason Stop Dose Admin Sodium Chloride 500 mls @ 30 mls/hr 07/19/24 09:30 07/19/24 12:22 Sodium Chloride 0.9% IV Infused .[id number] SOLEDAD Infusion Ondansetron HCl 4 mg 07/19/24 09:17 07/19/24 12:18 Ondansetron 2 Mg/Ml Sdv 2 Ml IVP 4 mg Q15M PRN Administration Nausea/Vomiting PACU PHASE II PFSH Acute PFSH: Medical History (Updated 07/19/24 @ 16:16 by Gerard Blackwood MD) Atrial flutter by electrocardiogram Hypertension Type 2 diabetes mellitus B12 deficiency Accelerated hypertension Weakness Fall Urinary hesitancy Anxiety with depression Vitamin D deficiency Atrial flutter with rapid ventricular response Nodule of kidney Right 16mm seen [facility] [address] 2019 Diabetes mellitus with hyperglycemia, without long-term current use of insulin Postnasal drip Pulmonary nodule Dorsalgia, unspecified DDD (degenerative disc disease), lumbar Lumbar spondylosis Opioid contract exists Encounter for long-term use of opiate analgesic Acute bilateral low back pain without sciatica Insomnia Chronic GERD Hyperlipemia Back pain with history of spinal surgery Surgical History (Updated 07/19/24 @ 16:16 by Gerard Blackwood MD) Hx of hysterectomy History of adenectomy Hx of cholecystectomy History of back surgery 3 times on lumbar History of appendectomy Family History Mother CAD (coronary artery disease) Cancer Dementia Father CAD (coronary artery disease) Denies family history of Diabetes Clotting disorder Chronic kidney disease (CKD) Suicide Anesthesia complication Bleeding disorder Lung disease Stroke Social History Smoking and tobacco/nicotine status: never used tobacco/nicotine Second hand smoke exposure: No Alcohol intake: never Substance/Drug Use: never Adopted: No Caregiver/support person: No Lives independently: Yes Household members: spouse Housing: House Marital status: / Current occupational status: disabled Do you think of yourself as: Straight/Heterosexual Current gender identity: Female Vitals/I&O/Wt Last Vital Signs Temp 97.4 F L 07/19/24 12:19 Pulse 63 07/19/24 12:19 Resp 20 H 07/19/24 12:32 BP 158/121 07/19/24 12:19 Pulse Ox 97 07/19/24 12:32 O2 Del Method Room Air 07/19/24 12:19 07/19/24 07/19/24 07/19/24 06:59 14:59 22:59 Intake Total 800 / 800 Balance 800 / 800 Weight last 48 hrs Weight 62.596 kg Physical Exam Narrative: General: No acute distress, AO x3, tired appearing HEENT: PERRLA, pupils bilaterally equal and reactive Chest: Normal vesicular breath sounds, no added sounds, equal good air entry bilaterally CVS: S1-S2 regular, no murmurs, no tachycardia, no gallops, no rubs Abdomen: Soft, mild generalized tenderness no organomegaly, bowel sounds present, NG tube in place Neuro: No focal deficits, no facial deformity, AO x3, power 5/5 in all limbs Urinary Catheter Management: Velásquez: Cath Placed During This Visit: yes Urinary Catheter Date of Insertion: 07/19/24 Urinary Catheter Time of Insertion: 13:00 Data 07/19/24 15:14 07/19/24 15:14 A&P Assessment and plan (1) Encounter for postoperative care: (2) Traumatic perforation of sigmoid colon: (3) S/P exploratory laparotomy: (4) Hypertension: Qualifiers: Hypertension type: essential hypertension Qualified Code(s): I10 - Essential (primary) hypertension (5) Atrial flutter by electrocardiogram: (6) Type 2 diabetes mellitus: Plan 78-year-old female admitted post expiratory protamine and sigmoid colon rectal repair due to iatrogenic sigmoid/rectal colon perforation with past medical history of atrial fibrillation on chronic anticoagulation. Stat CBC, CMP. NG tube management, abdominal pain management as per surgical team. Advancement of Diet as per surgical team. Continue with Dilaudid 0.4 every 4 hours as needed IV for pain management. Okay to give oral medications with clamping of NG tube for now as per primary team. Continue with LR at 75 cc/h for now. Protonix IV daily. Start on empiric IV Zosyn for now. Out of bed to chair. Incentive spirometry. Hold off on anticoagulation for now. Atrial flutter: Change home dose of metoprolol succinate 100 mg oral daily to 50 mg tartrate twice daily. Hold off on anticoagulation as above. Appreciate last echocardiogram showing EF of 70% without regional wall motion normality. Goal blood pressure 140/90 mmHg. Continue with metoprolol as above. Holding off on amlodipine for now. Insulin sliding scale every 6 hour low-dose protocol. Check A1c. Continue other chronic home medications. Thank you for involving us in care of Ms. Shah. Please call with any questions. Care discussed detail with patient's family, patient and RN at bedside. PDMP PDMP Reviewed: Not Reviewed Consult Attestations Medical Necessity Statement: As per primary team. Diagnoses Encounter for postoperative care Z48.89 Traumatic perforation of sigmoid colon S36.593A S/P exploratory laparotomy Z98.890 Essential hypertension I10 Hypertension type: essential hypertension Atrial flutter by electrocardiogram I48.92 Type 2 diabetes mellitus E11.9
[2024-07-19 15:19] LABS: Basophils # 0.1 10^3/uL (0.0-0.1); Basophils % 0.4 %; Eosinophils % 0.1 %; Lymphocytes # 3.3 10^3/uL (0.8-4.8); Lymphocytes % 23.8 %; Mean Corpuscular HGB Conc 29.2 g/dL (30-55); Mean Corpuscular Hemoglobin 27.1 pg (27-33); Mean Corpuscular Volume 92.6 fl (85-98); Mean Platelet Volume 9.7 fL (7.4-10.4); Monocytes # 0.4 10^3/uL (0.2-0.9); Monocytes % 2.9 %; Neutrophils # 10.06 10^3/uL (1.8-7.7); Neutrophils % 72.3 %; Nucleated Red Blood Cells % 0 %; Platelet Count 365 10^3/cmm (157-399); Red Blood Count 4.21 10^6/uL (3.85-5.65); Red Cell Distribution Width 16.8 % (12.1-15.1); White Blood Count 13.93 10^3/uL (3.29-11.43)
--- NOTE | 2024-07-19 15:30 | ANE.PACU2 ---
Inpatient post-anesthesia follow up: Airway intact: Yes Vital signs: Temperature 97.4 F Pulse Rate 63 Respiratory Rate 20 Blood Pressure 158/121 Pulse Oximetry 97 Oxygen Delivery Me thod Room Air Oxygen Flow Rate Fraction of Inspir ed Oxygen Hydration adequate: Yes Nausea and vomiting: Yes Pain level: 4 Mental status: Baseline
[2024-07-19 15:32] LABS: Estmated Average Glucose 146; Hemoglobin A1C 6.7 % (4.0-6.0)
[2024-07-19 15:39] LABS: Erythrocyte Sedimentation Rate 2 mm/hr (0-15)
[2024-07-19] MEDS: HYDROmorphone 0.5 MG/0.5 ML INJ 0.4 MG IVP ×2 (15:48→20:10)
[2024-07-19 15:53] LABS: Procalcitonin 0.06 ng/mL (0-0.5); Thyroid Stimulating Hormone 1.45 uIU/mL (0.27-4.20); Vitamin B12 525 pg/mL (232-1245)
[2024-07-19 16:05] LABS: Alanine Aminotransferase 12 U/L (0-33); Alkaline Phosphatase 50 U/L (35-105); Aspartate Amino Transferase 16 U/L (0-32); Blood Urea Nitrogen 16 mg/dL (8-23); Calcium 8.5 mg/dL (8.5-10.5); Carbon Dioxide 17 mmol/L (22-29); Chloride 106 mmol/L (98-107); Creatinine Clr Calc Pharmacy 57.2204; Globulin 2.5 g/dL (1.3-4.6); Glucose 173 mg/dL (65-115); Iron 36 ug/dL (37-145); Osmolality Calculated 291 mOsm/kg (285-295); Percent Saturation 10.1 % (20-50); Sodium 138 mmol/L (136-145); Total Bilirubin 0.8 mg/dL (0.15-1.2); Total Iron Binding Capacity 355 mcg/dl; Total Protein 6.5 g/dL (6.6-8.7); Unsaturated Iron Binding 319 ug/dL (112-347)
[2024-07-19] MEDS: lactated ringers 1,000 ML 75 ML IV (16:26)
[2024-07-19 16:27] LABS: Glucose Point of Care 187 mg/dL (70-110)
[2024-07-19] MEDS: insulin lispro 100 unit/1 mL SUBCUT ×2 (16:41→21:40)
--- NOTE | 2024-07-19 17:37 | PC.NURSE ---
Heparin order verified with Surgeon. Administered medication.
[2024-07-19] MEDS: heparin 5,000 unit/mL INJ 1 mL 5000 UNIT SUBCUT ×2 (17:38→23:07)
--- NOTE | 2024-07-19 17:48 | PM.OP ---
Operative Report Date of procedure: July 19, 2024 Pre-op diagnosis: Iatrogenic perforation of colon Post-op diagnosis: Iatrogenic perforation of proximal rectum Post-op findings: 3cm tear of proximal rectum. Repaired primarily in two layers using 3-0 vicryl and 3-0 silk. Performed intraoperative flexible sigmoidoscopy, negative leak test. Able to advance scope proximal to repair, which confirmed a patent sigmoid colon proximal to the repair. Procedure done: Exploratory laparotomy, primary repair of proximal rectum, intraoperative flexible sigmoidoscopy. Implants: N/A Specimens removed/disposition: N/A Pathology: none sent Surgeon: Villa Mina MD Forklift Operator: Geoffrey Giang Forklift Operator: Due to the complexity of the case Dr. Giang was asked to assist due to the absence of any other qualified staff. Anesthesia: General Estimated blood loss (mL): 50 Complications: N/A Findings: 3cm tear of proximal rectum. Repaired primarily in two layers using 3-0 vicryl and 3-0 silk. Performed intraoperative flexible sigmoidoscopy, negative leak test. Able to advance scope proximal to repair, which confirmed a patent sigmoid colon proximal to the repair. Condition: stable Disposition: ICU Brief History: 78-year-old female who presented for diagnostic colonoscopy for nonspecific abdominal pain. She has a history of diverticulosis and suspected also peptic ulcer disease. The day of the colonoscopy her abdomen was soft and benign, nontender to exam. During the initial part of the colonoscopy, a tear was identified at the level of the sigmoid colon. The colonoscopy was aborted and a CT scan showed free air. Findings were discussed with her daughter as well as the patient in the GI lab after the CT scan. Risks and benefits of exploratory laparotomy, possible bowel resection, possible ostomy, possible primary bowel repair were explained. The patient agreed to proceed. Procedure: The patient was immediately brought into the operating room from the GI lab. SCDs were on and working. General anesthesia was induced. Prophylactic antibiotics were administered. The abdomen was prepped and draped in the usual sterile fashion. Dr. Giang was asked to assist with this case due to the complexity and the absence of any other qualified staff. A midline incision was carried out. Electrocautery was used to dissect down to the fascial layer. The peritoneal cavity was entered and a large gush of air was evacuated. We then started exploring the pelvis. The sigmoid colon appeared intact, as well as the entirety of the proximal bowel all the way to the cecum. As we continued inspecting the colon distally, we identified a 3 cm perforation of the proximal rectum. The edges of the rectum at the site of the perforation appeared viable and there was no contamination. We proceeded with primary repair of the perforation in 2 layers using a running 3-0 Vicryl for the first layer, and a running 3-0 silk for the second layer. We were satisfied with the repair and proceeded to perform a leak test using intraoperative flexible sigmoidoscopy. With intraoperative sigmoidoscopy, we were able to visualize the repair. We had a negative leak test. We were also able to confirm that the sigmoid colon proximal to the repair remained patent. I then proceeded to washout the abdomen with 3 L of normal saline. I inspected the repair again and was satisfied with the result. The remainder of the colon was inspected and confirmed to be intact. I ran the bowel from cecum to documented Treitz and confirmed it was all intact. Stomach was intact. I then proceeded to spray fibrin glue over the primary repair of the rectum. A 19 Chinese Hal drain was left in the pelvis. Fascia was closed using x2 0 looped PDS. Skin was closed using azam. The patient woke up from anesthesia and was transferred to the ICU for close monitoring. Related Problem List Diagnoses (1) Traumatic perforation of sigmoid colon:
[2024-07-19] MEDS: tamsulosin 0.4 mg Capsule PO (20:12)
[2024-07-19] MEDS: metoprolol tartrate 50 mg Tablet PO (20:12)
[2024-07-19 20:30] LABS: Glucose Point of Care 163 mg/dL (70-110)
[2024-07-19] MEDS: lanolin oint 7 gm 1 APPLIC TOPICAL (23:14)
[2024-07-20] VITALS (38 sets, daily range): BP systolic 135–170; BP diastolic 69–113; PULSE 65–90; RESP 10–28; TEMP 36.6–38.5; O2SAT 91–98
[2024-07-20] MEDS: HYDROmorphone 0.5 MG/0.5 ML INJ 0.4 MG IVP (00:15)
[2024-07-20 02:23] LABS: Glucose Point of Care 134 mg/dL (70-110)
--- NOTE | 2024-07-20 02:33 | PC.NURSE ---
Pt complaining of 7/10 pain after 0.4mg IVP Q4H midnight dose of dilaudid. Dr. Gates notified, new telephone order for 1mg dilaudid IVP Q4H. Give dose now. New order for 650 mg PO tylenol Q4H tylenol for mild pain/fever.
[2024-07-20] MEDS: HYDROmorphone 0.5 MG/0.5 ML INJ 1 MG IVP ×6 (02:38→23:15)
[2024-07-20] MEDS: acetaminophen 325 mg Tablet 650 MG PO (02:48)
[2024-07-20 05:51] LABS: Basophils # 0.1 10^3/uL (0.0-0.1); Basophils % 0.3 %; Hematocrit 36.8 % (36-47); Lymphocytes % 8.4 %; Mean Corpuscular HGB Conc 30.4 g/dL (30-55); Mean Corpuscular Hemoglobin 26.7 pg (27-33); Mean Corpuscular Volume 87.8 fl (85-98); Mean Platelet Volume 10.6 fL (7.4-10.4); Monocytes % 4.2 %; Neutrophils # 20.46 10^3/uL (1.8-7.7); Neutrophils % 86.6 %; Nucleated Red Blood Cells % 0 %; Platelet Count 364 10^3/cmm (157-399); Red Blood Count 4.19 10^6/uL (3.85-5.65); Red Cell Distribution Width 16.7 % (12.1-15.1); White Blood Count 23.61 10^3/uL (3.29-11.43)
[2024-07-20] MEDS: piperacillin-tazobactam 3.375 GM in sodium chloride 0.9% (plus) 50 ML IV (06:08)
[2024-07-20] MEDS: lactated ringers 1,000 ML 75 ML IV ×2 (06:09→19:52)
[2024-07-20 06:29] LABS: Folate Level 4.3 ng/mL (4.8-37.3)
[2024-07-20 06:39] LABS: Chol HDL Ratio 1.52 mg/dL (0.0-4.40); Cholesterol 91 mg/dL (0-200); HDL Cholesterol 60 mg/dL (60-100); LDL Cholesterol Calculated 13 mg/dL (50-129); Magnesium 2.2 mg/dL (1.7-2.3); Triglycerides 92 mg/dL (0-150); VLDL Cholestrol Calculation 18 mg/dL (0-30)
[2024-07-20 06:41] LABS: Alanine Aminotransferase 10 U/L (0-33); Albumin Level 3.9 g/dL (3.5-5.2); Alkaline Phosphatase 51 U/L (35-105); Anion Gap 19.7 (5-19); Aspartate Amino Transferase 15 U/L (0-32); Blood Urea Nitrogen 12 mg/dL (8-23); Calcium 9.1 mg/dL (8.5-10.5); Carbon Dioxide 20 mmol/L (22-29); Chloride 102 mmol/L (98-107); Creatinine Clr Calc Pharmacy 57.2204; Globulin 2.7 g/dL (1.3-4.6); Glucose 159 mg/dL (65-115); Osmolality Calculated 289 mOsm/kg (285-295); Potassium 3.7 mmol/L (3.5-5.1); Sodium 138 mmol/L (136-145); Total Bilirubin 1.1 mg/dL (0.15-1.2); Total Protein 6.6 g/dL (6.6-8.7)
[2024-07-20] MEDS: heparin 5,000 unit/mL INJ 1 mL 5000 UNIT SUBCUT ×3 (07:07→23:07)
--- NOTE | 2024-07-20 07:11 | P.PN_ITS ---
Subjective 2 Subjective: Pain under control Drain serosanguineous Abdomen soft and benign Vital signs within normal limits Noted leukocytosis Vitals/I&O/Wt Last Vital Signs Temp 97.8 F 07/20/24 04:00 Pulse 80 07/20/24 06:00 Resp 19 H 07/20/24 06:00 BP 137/77 07/20/24 06:00 Pulse Ox 94 07/20/24 06:00 O2 Del Method Nasal Cannula 07/20/24 06:00 O2 Flow Rate 2 07/20/24 06:00 07/19/24 07/20/24 07/20/24 22:59 06:59 14:59 Intake Total 60 / 860 1290 / 2150 Output Total 245 / 245 1405 / 1650 Balance -185 / 615 -115 / 500 Weight last 48 hrs Weight 141 lb 1.6 oz Weight 143 lb 2 oz Weight 138 lb Physical Exam 2 Narrative: Chest: Unlabored breathing room air. No lymphadenopathy. Heart: Regular rate and rhythm. Abdomen: Soft, appropriately tender, nondistended. No masses or lymphadenopathy. Drain serosanguineous. Dressing clean dry and intact Urinary Catheter Management: Velásquez: Cath Placed During This Visit: yes Reason for Continuing Indwelling Catheter: Accurate Measurement of Urinary Output in Critically Ill Patients Urinary Catheter Date of Insertion: 07/19/24 Urinary Catheter Time of Insertion: 13:00 Data 07/20/24 04:44 07/20/24 04:44 A&P Assessment and plan (1) Traumatic perforation of sigmoid colon: Plan 78-year-old female status post iatrogenic perforation of proximal rectum during diagnostic colonoscopy. POD 1 ex lap with primary repair of rectum. Progressing as expected. Awaiting return of bowel function. Drain is serosanguineous. Keep NG tube to low continuous suction. Okay for sips for comfort. Continue antibiotics. Continue maintenance IV fluids. Discussed with hospitalist. PDMP PDMP Reviewed: Not Reviewed Attestations 2 Medical Necessity Statement*: IV antibiotics, IV fluids, ICU care Coding Level of Care Code 12151 Diagnoses Traumatic perforation of sigmoid colon S36.593A
[2024-07-20] MEDS: duloxetine 60 mg Capsule PO (08:20)
[2024-07-20] MEDS: oxyCODONE-APAP 5-325 mg Tablet 1 TAB PO ×3 (08:20→21:15)
[2024-07-20] MEDS: atorvastatin 40 mg Tablet 80 MG PO (08:21)
[2024-07-20] MEDS: metoprolol tartrate 50 mg Tablet PO ×2 (08:21→21:15)
[2024-07-20 09:57] LABS: Glucose Point of Care 146 mg/dL (70-110)
[2024-07-20] MEDS: insulin lispro 100 unit/1 mL SUBCUT (10:03)
[2024-07-20 10:05] LABS: Bilirubin Urine Negative (Negative); Blood Urine Negative (Negative); Glucose Urine UA Negative (Normal); Ketones Urine 1+ (Negative); Leukocyte Esterase Urine Negative (Negative); Nitrate Urine Negative (Negative); Protein Urine 1+ (Negative); Specific Gravity, Urine 1.023 (1.005-1.030); Urine Appearance Clear (CLEAR); Urine Color Yellow (Yellow); Urobilinogen Urine 0.2 mg/dL (Negative); pH Urine 5.5 (5-7)
[2024-07-20 10:10] LABS: Add Urine Microscopic? YES; Bacteria Urine None Seen /hpf; Hyaline Casts Urine 10.32 /lpf; RBC Urine 0-2 /hpf (0-2); Squamous Epithelial Cell Urine 0-5 /hpf (0-5)
--- NOTE | 2024-07-20 10:38 | PHA.VACGOAL ---
Vancomycin Goal - Goal Vancomycin Goal:: 15-20 mg/L Vancomycin Indication:: Pneumonia - Therapy Day of therpy:: Day []of [] . Actual body weight (kg): 141 lb 1.6 oz - Data Labs: WBC 23.61 10^3/uL (3.29-11.43) H 07/20/24 04:44 RBC 4.19 10^6/uL (3.85-5.65) 07/20/24 04:44 Hgb 11.20 g/dL (11.27-16.99) L 07/20/24 04:44 Hct 36.8 % (36-47) 07/20/24 04:44 MCV 87.8 fl (85-98) D 07/20/24 04:44 MCH 26.7 pg (27-33) L 07/20/24 04:44 MCHC 30.4 g/dL (30-55) 07/20/24 04:44 RDW 16.7 % (12.1-15.1) H 07/20/24 04:44 Sodium 138 mmol/L (136-145) 07/20/24 04:44 Potassium 3.7 mmol/L (3.5-5.1) 07/20/24 04:44 Chloride 102 mmol/L (98-107) 07/20/24 04:44 Carbon Dioxide 20 mmol/L (22-29) L 07/20/24 04:44 Anion Gap 19.7 (5-19) H 07/20/24 04:44 BUN 12 mg/dL (8-23) 07/20/24 04:44 Creatinine 0.7 mg/dL (0.5-0.9) 07/20/24 04:44 GFR Calculation Not Reportable 07/20/24 04:44 Treatment plan:: new consult Regimen:: 1000 MG NOW 500 MG Q12H
[2024-07-20] MEDS: VANCOMYCIN ADD-Vantage 1,000 MG in 0.9% NaCl ADD-Vantage 250 ML 250 MG IV (10:44)
[2024-07-20] MEDS: meropenem 1,000 mg SDV 1000 MG IVP ×2 (10:44→18:33)
[2024-07-20 11:55] LABS: MRSA PCR OZH (swab) NOT DETECTED (Not Detecte)
--- NOTE | 2024-07-20 13:00 | PC.NURSE ---
Discontinued mcfarland as ordered, tolerated well. Assisted to BSC, small liquid brown colored BM noted. Assisted to chair at bedside, tolerated well.
--- NOTE | 2024-07-20 14:29 | P.PN_ITS ---
Subjective 2 Subjective: No acute vents overnight. Today morning seen with family at bedside. Patient laying comfortably. Complaining of abdominal pain. Tmax overnight 101.3 Fahrenheit. Otherwise hemodynamically stable. Vitals/I&O/Wt Last Vital Signs Temp 98.4 F 07/20/24 12:00 Pulse 69 07/20/24 12:55 Resp 18 07/20/24 14:22 BP 143/79 07/20/24 12:00 Pulse Ox 93 07/20/24 12:55 O2 Del Method Nasal Cannula 07/20/24 12:55 O2 Flow Rate 1 07/20/24 12:55 07/19/24 07/20/24 07/20/24 22:59 06:59 14:59 Intake Total 60 / 860 1290 / 2150 250 / 250 Output Total 245 / 245 1405 / 1650 300 / 300 Balance -185 / 615 -115 / 500 -50 / -50 Weight last 48 hrs Weight 64.002 kg Weight 64.92 kg Weight 62.596 kg Physical Exam 2 Narrative: General: No acute distress, AO x3, tired appearing HEENT: PERRLA, pupils bilaterally equal and reactive Chest: Normal vesicular breath sounds, no added sounds, equal good air entry bilaterally CVS: S1-S2 regular, no murmurs, no tachycardia, no gallops, no rubs Abdomen: Soft, mild generalized tenderness no organomegaly, bowel sounds present, NG tube in place Neuro: No focal deficits, no facial deformity, AO x3, power 5/5 in all limbs Urinary Catheter Management: Velásquez: Cath Placed During This Visit: yes Reason for Continuing Indwelling Catheter: Accurate Measurement of Urinary Output in Critically Ill Patients Urinary Catheter Date of Insertion: 07/19/24 Urinary Catheter Time of Insertion: 13:00 Data 07/20/24 04:44 07/20/24 04:44 Micro: Microbiology 07/20/24 10:29 Blood Culture - Preliminary Blood SPECIMEN COLLECTED 07/20/24 10: Blood Culture - Preliminary Blood SPECIMEN COLLECTED A&P Assessment and plan (1) Encounter for postoperative care: (2) Traumatic perforation of sigmoid colon: (3) S/P exploratory laparotomy: (4) Hypertension: (5) Atrial flutter by electrocardiogram: (6) Type 2 diabetes mellitus: (7) Leukocytosis: Plan 78-year-old female admitted post expiratory protamine and sigmoid colon rectal repair due to iatrogenic sigmoid/rectal colon perforation with past medical history of atrial fibrillation on chronic anticoagulation. NG tube management, abdominal pain management as per surgical team. Advancement of Diet as per surgical team. Currently on 1 mg IV every 4 as needed Dilaudid, oxycodone 5 mg every 6 hours as needed for pain. Monitor for drowsiness, dizziness, hypoxia, altered mental status. If patient develops hypoxia, altered mental status will plan to decrease dose of Dilaudid. Okay to give oral medications with clamping of NG tube for now as per primary team. Continue with LR at 75 cc/h for now. Protonix IV daily. Out of bed to chair. Incentive spirometry. Hold off on anticoagulation for now. Discussed in detail with patient and patient's family at bedside about potential risk of stroke given history of atrial fibrillation while anticoagulation is withheld versus risk of bleeding due to recent expiratory laparotomy if anticoagulation is started earlier. Patient and family verbalized understanding and agreeable to hold off on anticoagulation for now. Discussed in detail with surgical team. Plan to possibly start anticoagulation in next 24 hours. Atrial flutter: Continue with metoprolol 50 mg tartrate twice daily. Hold off on anticoagulation as above. Appreciate last echocardiogram showing EF of 70% without regional wall motion normality. Goal blood pressure 140/90 mmHg. Continue with metoprolol as above. Holding off on amlodipine for now. Leukocytosis: Did have high-grade fever of more than 101 overnight. Could be in setting of recent expiratory laparotomy but cannot rule out worsening infectious source. Check blood culture, appreciate UA from yesterday, check abdominal fluid culture. Escalate antibiotics with meropenem 1 g every 8 hourly, vancomycin. Check MRSA swab. Insulin sliding scale every 6 hour low-dose protocol. Check A1c. Continue other chronic home medications. Thank you for involving us in care of Ms. Shah. Please call with any questions. Care discussed detail with patient's family, patient and RN at bedside. PDMP PDMP Reviewed: Not Reviewed Attestations 2 Medical Necessity Statement*: Requires further hospitalization for management of postoperative care, postoperative exploratory laparotomy for iatrogenic rectosigmoid perforation, febrile episode Diagnoses Encounter for postoperative care Z48.89 Traumatic perforation of sigmoid colon S36.593A S/P exploratory laparotomy Z98.890 Essential hypertension I10 Hypertension type: essential hypertension Atrial flutter by electrocardiogram I48.92 Type 2 diabetes mellitus E11.9 Leukocytosis D72.829
[2024-07-20 15:13] LABS: Glucose Point of Care 107 mg/dL (70-110)
--- NOTE | 2024-07-20 15:24 | PC.NURSE ---
Assisted back to bed, tolerated well. Reports pain to abdomen. Dilaudid given as ordered.
[2024-07-20] MEDS: tamsulosin 0.4 mg Capsule PO (21:15)
[2024-07-20] MEDS: vancomycin 500 MG in sodium chloride 0.9% (plus) 100 ML 200 MG IV (21:15)
--- NOTE | 2024-07-20 21:41 | PC.NURSE ---
Report given to EBEN Muñiz. Assumed pt care at 2130.
[2024-07-20 21:46] LABS: Glucose Point of Care 109 mg/dL (70-110)
--- NOTE | 2024-07-20 22:10 | PC.NURSE ---
suction pt suction turned back on to low intermittent at this time.
--- NOTE | 2024-07-20 22:44 | PC.NURSE ---
pt rounding pt urinated in bedpan at this time. saturated brief removed and new one placed. pt becca care done. pt o2 placed back on at this time.
[2024-07-21] VITALS (29 sets, daily range): BP systolic 120–170; BP diastolic 77–110; PULSE 67–103; RESP 14–27; TEMP 36.8–37.4; O2SAT 91–98
--- NOTE | 2024-07-21 00:54 | PC.NURSE ---
pt rounding pt noted to have untaped her ng tube stating she was going to pull it out. pt re educated on leaving it in. retaped at this time.
--- NOTE | 2024-07-21 01:05 | PC.NURSE ---
pt rounding pt used a bedpan again. alvin drain emptied again. pt repositioned in bed with a new jaja and brief.
--- NOTE | 2024-07-21 02:30 | PC.NURSE ---
Addendum entered by Mary Kay Huffman RN 07/21/24 02:41: pt had 700 ml of dark greenish ng output at this time. Original Note: pt noted to have an unreadable rhythm on the monitor, this nurse went to round on pt. pt had pulled out her tube. stated she is 'going home today and shes not going to have that tube in her nose anymore.' charge nurse alerted who alerted physician.
--- NOTE | 2024-07-21 02:37 | PC.NURSE ---
physician order physician stated to leave out ng tube until pt becomes uncomfortable and re-offer.
[2024-07-21] MEDS: acetaminophen 325 mg Tablet 650 MG PO (02:58)
[2024-07-21] MEDS: meropenem 1,000 mg SDV 1000 MG IVP ×3 (02:59→17:43)
[2024-07-21 03:12] LABS: Glucose Point of Care 119 mg/dL (70-110)
[2024-07-21 04:23] LABS: Basophils # 0.1 10^3/uL (0.0-0.1); Basophils % 0.2 %; Eosinophils # 0.1 10^3/uL (0.0-0.8); Eosinophils % 0.3 %; Hematocrit 34.1 % (36-47); Lymphocytes # 2.3 10^3/uL (0.8-4.8); Lymphocytes % 9.7 %; Mean Corpuscular HGB Conc 31.4 g/dL (30-55); Mean Corpuscular Hemoglobin 26.8 pg (27-33); Mean Corpuscular Volume 85.3 fl (85-98); Monocytes # 0.9 10^3/uL (0.2-0.9); Monocytes % 3.9 %; Neutrophils # 20.09 10^3/uL (1.8-7.7); Neutrophils % 85.3 %; Nucleated Red Blood Cells % 0 %; Platelet Count 337 10^3/cmm (157-399); Red Cell Distribution Width 16.5 % (12.1-15.1); White Blood Count 23.55 10^3/uL (3.29-11.43)
[2024-07-21 04:48] LABS: Alanine Aminotransferase 10 U/L (0-33); Albumin Level 3.5 g/dL (3.5-5.2); Alkaline Phosphatase 56 U/L (35-105); Anion Gap 13.8 (5-19); Aspartate Amino Transferase 15 U/L (0-32); Blood Urea Nitrogen 12 mg/dL (8-23); Calcium 9.2 mg/dL (8.5-10.5); Carbon Dioxide 26 mmol/L (22-29); Chloride 102 mmol/L (98-107); Globulin 2.9 g/dL (1.3-4.6); Glucose 141 mg/dL (65-115); Osmolality Calculated 288 mOsm/kg (285-295); Potassium 3.8 mmol/L (3.5-5.1); Sodium 138 mmol/L (136-145); Total Protein 6.4 g/dL (6.6-8.7)
[2024-07-21 04:53] LABS: Magnesium 2.1 mg/dL (1.7-2.3)
[2024-07-21] MEDS: HYDROmorphone 0.5 MG/0.5 ML INJ 1 MG IVP ×3 (05:49→21:43)
--- NOTE | 2024-07-21 06:26 | PC.NURSE ---
pt handoff pt given meds per mar, adjusted in bed, and given to icu for handoff.
--- NOTE | 2024-07-21 07:08 | PC.NURSE ---
Dr. Arevalo to bedside. Notified that patient had pulled NG tube out at approx 2AM and refused to allow it to be replaced. Abdominal incision dressing removed per MD. Order given that patient can have a clear liquid diet and is ok to be moved out of the ICU. Patient states I am going home today . MD explained to patient that she can move out of the ICU today but can not go home yet. Patients states I am going home, I have been here for 5 days and I can heal at home. Reoriented patient to time and explained to her that this is the 3rd day she is in the hospital.
--- NOTE | 2024-07-21 07:30 | PC.NURSE ---
Patient's daughter at bedside, updated on plan of care all questions answered.
--- NOTE | 2024-07-21 07:39 | P.PN_ITS ---
Subjective 2 Subjective: NG tube pulled out accidentally Had a bowel movement yesterday No pain Draining serosanguineous Incision is clean dry intact White count plateauing at 23k. No fever. Vitals/I&O/Wt Last Vital Signs Temp 98.3 F 07/21/24 02:00 Pulse 91 07/21/24 05:57 Resp 21 H 07/21/24 05:00 BP 170/93 07/21/24 05:00 Pulse Ox 96 07/21/24 05:00 O2 Del Method Nasal Cannula 07/20/24 16:00 O2 Flow Rate 2 07/21/24 05:00 07/20/24 07/21/24 07/21/24 22:59 06:59 14:59 Intake Total 1350 / 1600 Output Total 340 / 640 130 / 770 Balance 1010 / 960 -130 / 830 Weight last 48 hrs Weight 143 lb Weight 141 lb 1.6 oz Weight 143 lb 2 oz Weight 138 lb Physical Exam 2 Narrative: Chest: Unlabored breathing room air. No lymphadenopathy. Heart: Regular rate and rhythm. Abdomen: Soft, appropriately tender, nondistended. Incision clean dry intact. Drain serosanguineous. Urinary Catheter Management: Velásquez: Cath Placed During This Visit: yes Reason for Continuing Indwelling Catheter: Accurate Measurement of Urinary Output in Critically Ill Patients Urinary Catheter Date of Insertion: 07/19/24 Urinary Catheter Time of Insertion: 13:00 Data 07/21/24 04:08 07/21/24 04:08 Micro: Microbiology 07/20/24 11:50 Gram Stain - Final Peritoneal Fluid 07/20/24 10:29 Blood Culture - Preliminary Blood SPECIMEN COLLECTED 07/20/24 10:25 Blood Culture - Preliminary Blood SPECIMEN COLLECTED A&P Assessment and plan (1) Traumatic perforation of sigmoid colon: Plan 78-year-old female who presented for a diagnostic colonoscopy complicated by iatrogenic perforation of the proximal rectum. Postoperative day 2 from ex lap, primary repair of proximal rectum. Progressing as expected. Drain serosanguineous. Having bowel function. Okay to start clear liquids. Continue IV antibiotics. Okay to transfer to [facility]. Appreciate hospitalist's assistance with medical management. PDMP PDMP Reviewed: Not Reviewed Attestations 2 Medical Necessity Statement*: IV antibiotics, IV fluids, serial physical exams Coding Level of Care Code 95951 Diagnoses Traumatic perforation of sigmoid colon S36.593A
[2024-07-21] MEDS: efferdent effervescent 1 EACH DENTAL (08:05)
[2024-07-21] MEDS: atorvastatin 40 mg Tablet 80 MG PO (08:06)
[2024-07-21] MEDS: heparin 5,000 unit/mL INJ 1 mL 5000 UNIT SUBCUT (08:06)
[2024-07-21] MEDS: duloxetine 60 mg Capsule PO (08:06)
[2024-07-21] MEDS: metoprolol tartrate 50 mg Tablet PO ×2 (08:06→21:34)
[2024-07-21 08:28] LABS: Glucose Point of Care 157 mg/dL (70-110)
[2024-07-21] MEDS: insulin lispro 100 unit/1 mL SUBCUT ×2 (08:28→17:43)
[2024-07-21] MEDS: lactated ringers 1,000 ML 75 ML IV (09:53)
[2024-07-21] MEDS: amlodipine 10 mg Tablet PO (09:53)
[2024-07-21] MEDS: vancomycin 500 MG in sodium chloride 0.9% (plus) 100 ML 200 MG IV ×2 (09:53→21:35)
[2024-07-21] MEDS: oxyCODONE-APAP 5-325 mg Tablet 1 TAB PO ×2 (12:56→19:38)
--- NOTE | 2024-07-21 13:52 | P.PN_ITS ---
Subjective 2 Subjective: No acute events overnight. Patient has remained hemodynamically stable and afebrile. Today morning seen sitting up in chair. Has remained afebrile. Hemodynamically stable. Appreciate urine output. Drain still showing serosanguineous fluid off for more than 500 and last 24 hours. Vitals/I&O/Wt Last Vital Signs Temp 98.9 F 07/21/24 12:00 Pulse 86 07/21/24 12:00 Resp 24 H 07/21/24 12:56 BP 152/78 07/21/24 12:00 Pulse Ox 95 07/21/24 12:00 O2 Del Method Nasal Cannula 07/21/24 12:00 O2 Flow Rate 2 07/21/24 12:00 07/20/24 07/21/24 07/21/24 22:59 06:59 14:59 Intake Total 1350 / 1600 1350 / 1350 Output Total 340 / 640 130 / 770 Balance 1010 / 960 -130 / 830 1350 / 1350 Weight last 48 hrs Weight 64.864 kg Weight 64.002 kg Weight 64.92 kg Physical Exam 2 Narrative: General: No acute distress, AO x3, tired appearing HEENT: PERRLA, pupils bilaterally equal and reactive Chest: Normal vesicular breath sounds, no added sounds, equal good air entry bilaterally CVS: S1-S2 regular, no murmurs, no tachycardia, no gallops, no rubs Abdomen: Soft, mild generalized tenderness no organomegaly, bowel sounds present, NG tube in place Neuro: No focal deficits, no facial deformity, AO x3, power 5/5 in all limbs Urinary Catheter Management: Velásquez: Cath Placed During This Visit: yes Reason for Continuing Indwelling Catheter: Accurate Measurement of Urinary Output in Critically Ill Patients Urinary Catheter Date of Insertion: 07/19/24 Urinary Catheter Time of Insertion: 13:00 Data 07/21/24 04:08 07/21/24 04:08 Micro: Microbiology 07/20/24 11:50 Gram Stain - Final Peritoneal Fluid Body Fluid Culture - Preliminary 07/20/24 10:29 Blood Culture - Preliminary Blood NEGATIVE TO DATE 07/20/24 10:25 Blood Culture - Preliminary Blood NEGATIVE TO DATE A&P Assessment and plan (1) Encounter for postoperative care: (2) Traumatic perforation of sigmoid colon: (3) S/P exploratory laparotomy: (4) Hypertension: (5) Atrial flutter by electrocardiogram: (6) Type 2 diabetes mellitus: (7) Leukocytosis: Plan 78-year-old female admitted post expiratory protamine and sigmoid colon rectal repair due to iatrogenic sigmoid/rectal colon perforation with past medical history of atrial fibrillation on chronic anticoagulation. NG tube management, abdominal pain management as per surgical team. Advancement of Diet as per surgical team. Currently on 1 mg IV every 4 as needed Dilaudid, oxycodone 5 mg every 6 hours as needed for pain. Monitor for drowsiness, dizziness, hypoxia, altered mental status. If patient develops hypoxia, altered mental status will plan to decrease dose of Dilaudid. Okay to give oral medications with clamping of NG tube for now as per primary team. Continue with LR at 75 cc/h for now. Protonix IV daily. Out of bed to chair. Incentive spirometry. Hold off on anticoagulation for now. Discussed in detail with patient and patient's family at bedside about potential risk of stroke given history of atrial fibrillation while anticoagulation is withheld versus risk of bleeding due to recent expiratory laparotomy if anticoagulation is started earlier. Patient and family verbalized understanding and agreeable to hold off on anticoagulation for now. Discussed in detail with surgical team. Plan to possibly start anticoagulation in next 24 hours. Atrial flutter: Continue with metoprolol 50 mg tartrate twice daily. Hold off on anticoagulation as above. Appreciate last echocardiogram showing EF of 70% without regional wall motion normality. Goal blood pressure 140/90 mmHg. Continue with metoprolol as above. Holding off on amlodipine for now. Leukocytosis: Did have high-grade fever of more than 101 overnight. Could be in setting of recent expiratory laparotomy but cannot rule out worsening infectious source. Check blood culture, appreciate UA from yesterday, check abdominal fluid culture. Escalate antibiotics with meropenem 1 g every 8 hourly, vancomycin. Check MRSA swab. Insulin sliding scale every 6 hour low-dose protocol. Check A1c. Continue other chronic home medications. Plan for the day: NG tube removed as per surgical recommendations. Started on clear liquid diet. If patient is able to tolerate liquid diet well will plan to stop IV fluids. Continue with empiric IV meropenem and vancomycin. MRSA swab negative. If remains afebrile for next 24 hours we will plan to discontinue vancomycin. Leukocytosis remains stable. Check C. difficile. Follow-up blood culture, fluid culture. Physical therapy. Out of bed to chair. Incentive spirometry. Discussed in detail with surgical team. Would want to hold off on starting full dose anticoagulation for now. Switch to Lovenox 40 mg subcu daily. Goal blood pressure less than 140/90 mmHg. Blood pressure is elevated today. Restart home dose of amlodipine 10 mg oral daily. Uptitrate as per goal blood pressure. Oxygen supplementation keeping saturation over 90%. Thank you for involving us in care of Ms. Shah. Please call with any questions. Care discussed detail with patient's family, patient and RN at bedside. PDMP PDMP Reviewed: Not Reviewed Attestations 2 Medical Necessity Statement*: Requires further hospitalization for postoperative care post exploratory laparotomy for iatrogenic sigmoid perforation, while diet is advanced, leukocytosis, febrile episode Diagnoses Encounter for postoperative care Z48.89 Traumatic perforation of sigmoid colon S36.593A S/P exploratory laparotomy Z98.890 Essential hypertension I10 Hypertension type: essential hypertension Atrial flutter by electrocardiogram I48.92 Type 2 diabetes mellitus E11.9 Leukocytosis D72.829
--- NOTE | 2024-07-21 14:08 | PC.OT ---
OT EVALUATION ATTEMPTED; PATIENT SLEEPING SOUNDLY AND DOES NOT AWAKEN. WILL ATTEMPT AGAIN AT A LATER TIME.
[2024-07-21] MEDS: enoxaparin 40 mg/0.4 mL Syringe SUBCUT (17:42)
[2024-07-21 18:01] LABS: Glucose Point of Care 189 mg/dL (70-110)
[2024-07-21] MEDS: tamsulosin 0.4 mg Capsule PO (21:34)
[2024-07-21 21:39] LABS: Glucose Point of Care 111 mg/dL (70-110)
--- NOTE | 2024-07-21 23:49 | PC.NURSE ---
Phlebitis noted in left forearm IV. Dr. Gates made aware. New order for 162 mg chewable aspirin, stop IV and apply warm compress.
[2024-07-22] VITALS (27 sets, daily range): BP systolic 132–173; BP diastolic 76–100; PULSE 66–82; RESP 14–24; TEMP 36.6–37.3; O2SAT 90–97
[2024-07-22] MEDS: aspirin 81 mg Chew Tablet 162 MG PO (00:03)
[2024-07-22] MEDS: lactated ringers 1,000 ML 75 ML IV (00:36)
[2024-07-22] MEDS: meropenem 1,000 mg SDV 1000 MG IVP ×3 (02:44→20:23)
[2024-07-22] MEDS: HYDROmorphone 0.5 MG/0.5 ML INJ 1 MG IVP ×2 (02:44→08:03)
[2024-07-22 04:37] LABS: Basophils % 0.2 %; Eosinophils # 0.4 10^3/uL (0.0-0.8); Eosinophils % 2.6 %; Hematocrit 30.6 % (36-47); Lymphocytes # 1.9 10^3/uL (0.8-4.8); Mean Corpuscular Hemoglobin 26.6 pg (27-33); Mean Corpuscular Volume 85.7 fl (85-98); Mean Platelet Volume 10.4 fL (7.4-10.4); Monocytes # 0.9 10^3/uL (0.2-0.9); Monocytes % 5.2 %; Neutrophils # 13.71 10^3/uL (1.8-7.7); Neutrophils % 80.4 %; Nucleated Red Blood Cells % 0 %; Platelet Count 303 10^3/cmm (157-399); Red Blood Count 3.57 10^6/uL (3.85-5.65); Red Cell Distribution Width 16.2 % (12.1-15.1); White Blood Count 17.05 10^3/uL (3.29-11.43)
[2024-07-22 04:51] LABS: Alanine Aminotransferase 9 U/L (0-33); Albumin Level 2.9 g/dL (3.5-5.2); Alkaline Phosphatase 51 U/L (35-105); Aspartate Amino Transferase 14 U/L (0-32); Blood Urea Nitrogen 10 mg/dL (8-23); Calcium 8.6 mg/dL (8.5-10.5); Carbon Dioxide 31 mmol/L (22-29); Chloride 100 mmol/L (98-107); Creatinine Clr Calc Pharmacy 57.1996; Globulin 2.6 g/dL (1.3-4.6); Glucose 141 mg/dL (65-115); Osmolality Calculated 287 mOsm/kg (285-295); Sodium 138 mmol/L (136-145); Total Bilirubin 0.7 mg/dL (0.15-1.2); Total Protein 5.5 g/dL (6.6-8.7)
[2024-07-22 05:01] LABS: Anion Gap 10.6 (5-19); Potassium 3.6 mmol/L (3.5-5.1)
[2024-07-22 08:02] LABS: Glucose Point of Care 136 mg/dL (70-110)
--- NOTE | 2024-07-22 08:40 | PC.SOCIAL ---
IMM Update pg 2 of IMM Updated and reviewed w/ patient. Copy provided and copy dated, initialed and placed in chart.
[2024-07-22] MEDS: atorvastatin 40 mg Tablet 80 MG PO (08:51)
[2024-07-22] MEDS: duloxetine 60 mg Capsule PO (08:52)
[2024-07-22] MEDS: amlodipine 10 mg Tablet PO (08:52)
[2024-07-22] MEDS: metoprolol tartrate 50 mg Tablet PO ×2 (08:52→20:30)
[2024-07-22 09:23] LABS: Vancomycin Trough 8.1 ug/mL (10-15)
[2024-07-22] MEDS: vancomycin 500 MG in sodium chloride 0.9% (plus) 100 ML 200 MG IV (10:57)
[2024-07-22] MEDS: oxyCODONE-APAP 5-325 mg Tablet 1 TAB PO ×3 (11:25→23:48)
[2024-07-22] MEDS: losartan 50 mg Tablet PO (11:29)
--- NOTE | 2024-07-22 11:47 | PM.PN ---
Subjective Subjective: No complaints Vitals/I&O/Wt Last Vital Signs Temp 98.4 F 07/22/24 07:58 Pulse 66 07/22/24 11:28 Resp 19 H 07/22/24 11:28 BP 147/97 07/22/24 11:29 Pulse Ox 94 07/22/24 11:28 O2 Del Method Room Air 07/22/24 09:34 O2 Flow Rate 2 07/22/24 07:58 07/21/24 07/22/24 07/22/24 22:59 06:59 14:59 Intake Total 420 / 1870 1480 / 3350 320 / 320 Output Total 140 / 140 350 / 490 Balance 280 / 1730 1130 / 2860 320 / 320 Weight last 48 hrs Weight 141 lb 1.533 oz Weight 143 lb Physical Exam Narrative: Patient is a well developed well nourished and in NAD and is afebrile with vitals stable and is answering questions appropriately with a normal affect and is alert and oriented x3 HEENT: normocephalic with normal external ears and nonicteric, oral mucosa moist and dentition normal for age, trachea midline with no large masses visualized Heart: RRR, no gallops murmurs or rubs, normal PMI with no thrills Lungs: normal excursions, no loud audible wheezing, no subcutaneous emphysema Abdomen: nondistended, no gross hepatosplenomegaly, no masses, no rigidity or rebound, no loud borborygmi Neuro: nonfocal, DURAND, grossly normal sensation Musculoskeletal: good muscle tone, no fasciculations, normal gait Skin: pink warm and dry with no rashes or ecchymosis Vascular: good radial pulses, no ulceration, less than 2 second capillary refill in hand : deferred Urinary Catheter Management: Velásquez: Cath Placed During This Visit: yes Reason for Continuing Indwelling Catheter: Accurate Measurement of Urinary Output in Critically Ill Patients Urinary Catheter Date of Insertion: 07/19/24 Urinary Catheter Time of Insertion: 13:00 Data 07/22/24 04:20 07/22/24 04:20 Micro: Microbiology 07/20/24 11:50 Gram Stain - Final Peritoneal Fluid Body Fluid Culture - Preliminary 07/20/24 10:29 Blood Culture - Preliminary Blood NEGATIVE TO DATE 07/20/24 10:25 Blood Culture - Preliminary Blood NEGATIVE TO DATE A&P Assessment and plan (1) Traumatic perforation of sigmoid colon: Plan Patient WBC decreasing. SHe had BM and passing flatus. SHe is tolerating clears and advance to full liquids. WES output more serous than sanguinous. SHe may be transferred to [facility] surg floor from surgical standpoint. PDMP PDMP Reviewed: Not Reviewed Attestations Medical Necessity Statement*: SHe needs further postop care. Care will continue for the next 2 midnights. Monitoring drop in hgb to 9 range. Coding Level of Care Code Acute Code for Chg Fwd Diagnoses Traumatic perforation of sigmoid colon S36.593A
[2024-07-22 11:52] LABS: Glucose Point of Care 201 mg/dL (70-110)
[2024-07-22] MEDS: insulin lispro 100 unit/1 mL SUBCUT ×3 (12:07→20:30)
[2024-07-22 16:30] LABS: Glucose Point of Care 174 mg/dL (70-110)
[2024-07-22] MEDS: enoxaparin 40 mg/0.4 mL Syringe SUBCUT (17:09)
[2024-07-22 20:10] LABS: Glucose Point of Care 175 mg/dL (70-110)
[2024-07-22] MEDS: tamsulosin 0.4 mg Capsule PO (20:29)
[2024-07-22] MEDS: HYDROmorphone 0.5 MG/0.5 ML INJ 0.4 MG IVP (20:29)
[2024-07-23] VITALS (11 sets, daily range): BP systolic 127–167; BP diastolic 74–90; PULSE 68–99; RESP 15–18; TEMP 36.6–37.1; O2SAT 93–96
[2024-07-23] MEDS: meropenem 1,000 mg SDV 1000 MG IVP ×3 (02:41→18:31)
[2024-07-23] MEDS: HYDROmorphone 0.5 MG/0.5 ML INJ 0.4 MG IVP ×4 (02:41→22:54)
[2024-07-23 03:45] LABS: Basophils % 0.3 %; Eosinophils # 0.6 10^3/uL (0.0-0.8); Eosinophils % 4.4 %; Hematocrit 33.2 % (36-47); Lymphocytes # 2.2 10^3/uL (0.8-4.8); Mean Corpuscular HGB Conc 30.7 g/dL (30-55); Mean Corpuscular Hemoglobin 26.5 pg (27-33); Mean Corpuscular Volume 86.2 fl (85-98); Mean Platelet Volume 10.3 fL (7.4-10.4); Monocytes # 0.9 10^3/uL (0.2-0.9); Monocytes % 6.2 %; Neutrophils # 9.97 10^3/uL (1.8-7.7); Neutrophils % 72.5 %; Nucleated Red Blood Cells % 0 %; Platelet Count 327 10^3/cmm (157-399); Red Blood Count 3.85 10^6/uL (3.85-5.65); Red Cell Distribution Width 15.9 % (12.1-15.1); White Blood Count 13.77 10^3/uL (3.29-11.43)
[2024-07-23 04:07] LABS: Alanine Aminotransferase 9 U/L (0-33); Albumin Level 2.9 g/dL (3.5-5.2); Alkaline Phosphatase 60 U/L (35-105); Anion Gap 15.3 (5-19); Aspartate Amino Transferase 11 U/L (0-32); Blood Urea Nitrogen 8 mg/dL (8-23); Calcium 8.7 mg/dL (8.5-10.5); Carbon Dioxide 28 mmol/L (22-29); Chloride 99 mmol/L (98-107); Creatinine Clr Calc Pharmacy 57.5536; Globulin 2.7 g/dL (1.3-4.6); Glucose 158 mg/dL (65-115); Osmolality Calculated 290 mOsm/kg (285-295); Potassium 3.3 mmol/L (3.5-5.1); Sodium 139 mmol/L (136-145); Total Bilirubin 0.8 mg/dL (0.15-1.2); Total Protein 5.6 g/dL (6.6-8.7)
[2024-07-23 06:27] LABS: Glucose Point of Care 161 mg/dL (70-110)
[2024-07-23] MEDS: insulin lispro 100 unit/1 mL SUBCUT ×4 (08:15→21:12)
[2024-07-23] MEDS: losartan 50 mg Tablet PO (08:16)
[2024-07-23] MEDS: atorvastatin 40 mg Tablet 80 MG PO (08:16)
[2024-07-23] MEDS: duloxetine 60 mg Capsule PO (08:16)
[2024-07-23] MEDS: oxyCODONE-APAP 5-325 mg Tablet 1 TAB PO ×2 (08:16→19:47)
[2024-07-23] MEDS: pantoprazole DR 40 mg Tablet PO (08:16)
[2024-07-23] MEDS: metoprolol tartrate 50 mg Tablet PO ×2 (08:16→21:11)
[2024-07-23] MEDS: amlodipine 10 mg Tablet PO (08:16)
--- NOTE | 2024-07-23 10:09 | P.PN_ITS ---
Subjective 2 Subjective: complains of incisional pain Vitals/I&O/Wt Last Vital Signs Temp 97.8 F 07/23/24 08:00 Pulse 83 07/23/24 08:00 Resp 16 07/23/24 08:16 BP 163/90 07/23/24 08:00 Pulse Ox 96 07/23/24 08:00 O2 Del Method Nasal Cannula 07/23/24 08:00 O2 Flow Rate 2 07/23/24 08:00 07/22/24 07/23/24 07/23/24 22:59 06:59 14:59 Intake Total 1360 / 1680 120 / 1800 240 / 240 Output Total 85 / 235 Balance 1360 / 1530 35 / 1565 240 / 240 Weight last 48 hrs Weight 145 lb 1.6 oz Weight 141 lb 1.533 oz Physical Exam 2 Narrative: Patient is a well developed well nourished and in NAD and is afebrile with vitals stable and is answering questions appropriately with a normal affect and is alert and oriented x3 HEENT: normocephalic with normal external ears and nonicteric, oral mucosa moist and dentition normal for age, trachea midline with no large masses visualized Heart: RRR, no gallops murmurs or rubs, normal PMI with no thrills Lungs: normal excursions, no loud audible wheezing, no subcutaneous emphysema Abdomen: nondistended, no gross hepatosplenomegaly, no masses, no rigidity or rebound, no loud borborygmi Neuro: nonfocal, DURAND, grossly normal sensation Musculoskeletal: good muscle tone, no fasciculations, normal gait Skin: pink warm and dry with no rashes or ecchymosis Vascular: good radial pulses, no ulceration, less than 2 second capillary refill in hand : deferred Urinary Catheter Management: Velásquez: Cath Placed During This Visit: yes Reason for Continuing Indwelling Catheter: Accurate Measurement of Urinary Output in Critically Ill Patients Urinary Catheter Date of Insertion: 07/19/24 Urinary Catheter Time of Insertion: 13:00 Data 07/23/24 03:05 07/23/24 03:05 Micro: Microbiology 07/20/24 11:50 Gram Stain - Final Peritoneal Fluid Body Fluid Culture - Preliminary A&P Assessment and plan (1) Traumatic perforation of sigmoid colon: Patient complaining of incisional pain. She was requiring quite a bit of narcotics in ICU and trying to wean her to pills to avoid ileus. She seems to be tolerating diet and passing flatus. Her WBC is down to 13k on antibiotics. Serosnaguinous out WES. HGB stable and went up slightly. Apply ice to incision prn. Not sure if anesthesia can perform TAP block by bedside with local anesthetic but if they can then this could be an option for better pain control. PDMP PDMP Reviewed: Not Reviewed Attestations 2 Medical Necessity Statement*: Patient needs routine postop care after colectomy and will stay for at least 2 more days. Coding Level of Care Code Acute Code for Chg Fwd Diagnoses Traumatic perforation of sigmoid colon S36.593A
--- NOTE | 2024-07-23 12:34 | P.PN_ITS ---
Subjective 2 Subjective: No acute events overnight. Patient has remained hemodynamically stable and afebrile. Had bowel movement. Tolerating liquid diet well. Denies any nausea, vomiting, headache. Passing flatus. Documented 200 cc fluid drained overnight. Vitals/I&O/Wt Last Vital Signs Temp 98.2 F 07/23/24 10:50 Pulse 68 07/23/24 10:50 Resp 17 07/23/24 10:50 BP 151/81 07/23/24 10:50 Pulse Ox 95 07/23/24 10:50 O2 Del Method Nasal Cannula 07/23/24 10:50 O2 Flow Rate 2 07/23/24 10:43 07/22/24 07/23/24 07/23/24 22:59 06:59 14:59 Intake Total 1360 / 1680 120 / 1800 240 / 240 Output Total 85 / 235 Balance 1360 / 1530 35 / 1565 240 / 240 Weight last 48 hrs Weight 65.816 kg Weight 64 kg Physical Exam 2 Narrative: General: No acute distress, AO x3, HEENT: PERRLA, pupils bilaterally equal and reactive Chest: Normal vesicular breath sounds, no added sounds, equal good air entry bilaterally CVS: S1-S2 regular, no murmurs, no tachycardia, no gallops, no rubs Abdomen: Soft, mild generalized tenderness no organomegaly, bowel sounds present, NG tube in place Neuro: No focal deficits, no facial deformity, AO x3, power 5/5 in all limbs Urinary Catheter Management: Velásquez: Cath Placed During This Visit: yes Reason for Continuing Indwelling Catheter: Accurate Measurement of Urinary Output in Critically Ill Patients Urinary Catheter Date of Insertion: 07/19/24 Urinary Catheter Time of Insertion: 13:00 Data 07/23/24 03:05 07/23/24 03:05 Micro: Microbiology 07/20/24 11:50 Gram Stain - Final Peritoneal Fluid Body Fluid Culture - Preliminary A&P Assessment and plan (1) Encounter for postoperative care: (2) Traumatic perforation of sigmoid colon: (3) S/P exploratory laparotomy: (4) Hypertension: (5) Atrial flutter by electrocardiogram: (6) Type 2 diabetes mellitus: (7) Leukocytosis: Plan 78-year-old female admitted post expiratory protamine and sigmoid colon rectal repair due to iatrogenic sigmoid/rectal colon perforation with past medical history of atrial fibrillation on chronic anticoagulation. NG tube management, abdominal pain management as per surgical team. Advancement of Diet as per surgical team. Currently on 1 mg IV every 4 as needed Dilaudid, oxycodone 5 mg every 6 hours as needed for pain. Monitor for drowsiness, dizziness, hypoxia, altered mental status. If patient develops hypoxia, altered mental status will plan to decrease dose of Dilaudid. Okay to give oral medications with clamping of NG tube for now as per primary team. Continue with LR at 75 cc/h for now. Protonix IV daily. Out of bed to chair. Incentive spirometry. Hold off on anticoagulation for now. Discussed in detail with patient and patient's family at bedside about potential risk of stroke given history of atrial fibrillation while anticoagulation is withheld versus risk of bleeding due to recent expiratory laparotomy if anticoagulation is started earlier. Patient and family verbalized understanding and agreeable to hold off on anticoagulation for now. Discussed in detail with surgical team. Plan to possibly start anticoagulation in next 24 hours. Atrial flutter: Continue with metoprolol 50 mg tartrate twice daily. Hold off on anticoagulation as above. Appreciate last echocardiogram showing EF of 70% without regional wall motion normality. Goal blood pressure 140/90 mmHg. Continue with metoprolol as above. Holding off on amlodipine for now. Leukocytosis: Did have high-grade fever of more than 101 overnight. Could be in setting of recent expiratory laparotomy but cannot rule out worsening infectious source. Check blood culture, appreciate UA from yesterday, check abdominal fluid culture. Escalate antibiotics with meropenem 1 g every 8 hourly, vancomycin. Check MRSA swab. Insulin sliding scale every 6 hour low-dose protocol. Check A1c. Continue other chronic home medications. Plan for the day: Continue management of NG tube and drain as per surgical team. Controlled full liquid diet. Vancomycin DC'd on 07/22. Continue with meropenem to finish a 5-day course. Last dose on 07/25. Follow-up cultures. Ambulation. Goal blood pressure less than 140/90 mmHg. Continue with current dose of losartan, metoprolol and amlodipine. If needed we will crease the dose of losartan. Monitor BMP. Discussed CODE STATUS in detail with the patient. He does not want any kind of resuscitative measures. DNR/DNI. Fluids discontinued. Oxygen supplementation keeping saturation over 90%. Thank you for involving us in care of Ms. Jefferson. Please call with any questions. Care discussed detail with patient's family, patient and RN at bedside. PDMP PDMP Reviewed: Not Reviewed Attestations 2 Medical Necessity Statement*: As per primary team. Diagnoses Encounter for postoperative care Z48.89 Traumatic perforation of sigmoid colon S36.593A S/P exploratory laparotomy Z98.890 Essential hypertension I10 Hypertension type: essential hypertension Atrial flutter by electrocardiogram I48.92 Type 2 diabetes mellitus E11.9 Leukocytosis D72.829
[2024-07-23 16:17] LABS: Glucose Point of Care 148 mg/dL (70-110)
[2024-07-23 16:17] LABS: Glucose Point of Care 144 mg/dL (70-110)
[2024-07-23] MEDS: enoxaparin 40 mg/0.4 mL Syringe SUBCUT (17:16)
[2024-07-23 20:48] LABS: Glucose Point of Care 204 mg/dL (70-110)
[2024-07-23] MEDS: tamsulosin 0.4 mg Capsule PO (21:11)
[2024-07-24] VITALS (11 sets, daily range): BP systolic 128–154; BP diastolic 78–90; PULSE 66–78; RESP 15–17; TEMP 36.4–37.1; O2SAT 94–97
[2024-07-24] MEDS: meropenem 1,000 mg SDV 1000 MG IVP ×3 (01:48→17:54)
[2024-07-24] MEDS: oxyCODONE-APAP 5-325 mg Tablet 1 TAB PO ×3 (02:59→18:49)
[2024-07-24 04:21] LABS: Basophils % 0.2 %; Eosinophils # 0.4 10^3/uL (0.0-0.8); Eosinophils % 2.8 %; Hematocrit 34.7 % (36-47); Lymphocytes # 1.8 10^3/uL (0.8-4.8); Lymphocytes % 14.7 %; Mean Corpuscular HGB Conc 30.8 g/dL (30-55); Mean Corpuscular Hemoglobin 26.8 pg (27-33); Mean Corpuscular Volume 86.8 fl (85-98); Mean Platelet Volume 10.2 fL (7.4-10.4); Monocytes % 8.3 %; Neutrophils # 9.01 10^3/uL (1.8-7.7); Neutrophils % 73.2 %; Nucleated Red Blood Cells % 0 %; Platelet Count 334 10^3/cmm (157-399); Red Cell Distribution Width 15.9 % (12.1-15.1); White Blood Count 12.32 10^3/uL (3.29-11.43)
[2024-07-24 04:42] LABS: Alanine Aminotransferase 10 U/L (0-33); Albumin Level 2.8 g/dL (3.5-5.2); Alkaline Phosphatase 62 U/L (35-105); Anion Gap 13.5 (5-19); Aspartate Amino Transferase 14 U/L (0-32); Blood Urea Nitrogen 9 mg/dL (8-23); Calcium 8.9 mg/dL (8.5-10.5); Carbon Dioxide 28 mmol/L (22-29); Chloride 100 mmol/L (98-107); Creatinine Clr Calc Pharmacy 57.5536; Globulin 2.9 g/dL (1.3-4.6); Glucose 172 mg/dL (65-115); Osmolality Calculated 289 mOsm/kg (285-295); Potassium 3.5 mmol/L (3.5-5.1); Sodium 138 mmol/L (136-145); Total Bilirubin 0.9 mg/dL (0.15-1.2); Total Protein 5.7 g/dL (6.6-8.7)
[2024-07-24] MEDS: HYDROmorphone 0.5 MG/0.5 ML INJ 0.4 MG IVP ×3 (06:14→22:17)
[2024-07-24 06:46] LABS: Glucose Point of Care 181 mg/dL (70-110)
[2024-07-24] MEDS: duloxetine 60 mg Capsule PO (09:31)
[2024-07-24] MEDS: atorvastatin 40 mg Tablet 80 MG PO (09:31)
[2024-07-24] MEDS: losartan 50 mg Tablet PO (09:31)
[2024-07-24] MEDS: pantoprazole DR 40 mg Tablet PO (09:31)
[2024-07-24] MEDS: amlodipine 10 mg Tablet PO (09:32)
[2024-07-24] MEDS: insulin lispro 100 unit/1 mL SUBCUT ×4 (09:32→20:47)
[2024-07-24] MEDS: metoprolol tartrate 50 mg Tablet PO ×2 (09:35→20:18)
[2024-07-24 11:48] LABS: Glucose Point of Care 177 mg/dL (70-110)
--- NOTE | 2024-07-24 13:16 | P.PN_ITS ---
Subjective 2 Subjective: No acute vents overnight. Complaining of abdominal pain. Diet advanced to GI soft as per surgical team. Denies any nausea. Patient wants to continue trial of soft diet for now. Passing flatus. Vitals/I&O/Wt Last Vital Signs Temp 97.5 F L 07/24/24 11:19 Pulse 66 07/24/24 11:19 Resp 16 07/24/24 11:19 BP 136/90 07/24/24 11:19 Pulse Ox 94 07/24/24 11:19 O2 Del Method Nasal Cannula 07/24/24 11:19 O2 Flow Rate 2 07/23/24 20:00 07/23/24 07/24/24 07/24/24 22:59 06:59 14:59 Intake Total 240 / 720 120 / 120 Output Total 260 / 460 160 / 620 40 / 40 Balance -20 / 260 -160 / 100 80 / 80 Weight last 48 hrs Weight 65.589 kg Weight 65.816 kg Physical Exam 2 Narrative: General: No acute distress, AO x3, HEENT: PERRLA, pupils bilaterally equal and reactive Chest: Normal vesicular breath sounds, no added sounds, equal good air entry bilaterally CVS: S1-S2 regular, no murmurs, no tachycardia, no gallops, no rubs Abdomen: Soft, mild generalized tenderness no organomegaly, bowel sounds present, NG tube in place Neuro: No focal deficits, no facial deformity, AO x3, power 5/5 in all limbs Urinary Catheter Management: Velásquez: Cath Placed During This Visit: yes Reason for Continuing Indwelling Catheter: Accurate Measurement of Urinary Output in Critically Ill Patients Urinary Catheter Date of Insertion: 07/19/24 Urinary Catheter Time of Insertion: 13:00 Data 07/24/24 03:52 07/24/24 03:52 Micro: Microbiology 07/20/24 11:50 Gram Stain - Final Peritoneal Fluid Body Fluid Culture - Final A&P Assessment and plan (1) Encounter for postoperative care: (2) Traumatic perforation of sigmoid colon: (3) S/P exploratory laparotomy: (4) Hypertension: (5) Atrial flutter by electrocardiogram: (6) Type 2 diabetes mellitus: (7) Leukocytosis: Plan 78-year-old female admitted post expiratory protamine and sigmoid colon rectal repair due to iatrogenic sigmoid/rectal colon perforation with past medical history of atrial fibrillation on chronic anticoagulation. NG tube management, abdominal pain management as per surgical team. Advancement of Diet as per surgical team. Currently on 1 mg IV every 4 as needed Dilaudid, oxycodone 5 mg every 6 hours as needed for pain. Monitor for drowsiness, dizziness, hypoxia, altered mental status. If patient develops hypoxia, altered mental status will plan to decrease dose of Dilaudid. Okay to give oral medications with clamping of NG tube for now as per primary team. Continue with LR at 75 cc/h for now. Protonix IV daily. Out of bed to chair. Incentive spirometry. Hold off on anticoagulation for now. Discussed in detail with patient and patient's family at bedside about potential risk of stroke given history of atrial fibrillation while anticoagulation is withheld versus risk of bleeding due to recent expiratory laparotomy if anticoagulation is started earlier. Patient and family verbalized understanding and agreeable to hold off on anticoagulation for now. Discussed in detail with surgical team. Plan to possibly start anticoagulation in next 24 hours. Atrial flutter: Continue with metoprolol 50 mg tartrate twice daily. Hold off on anticoagulation as above. Appreciate last echocardiogram showing EF of 70% without regional wall motion normality. Goal blood pressure 140/90 mmHg. Continue with metoprolol as above. Holding off on amlodipine for now. Leukocytosis: Did have high-grade fever of more than 101 overnight. Could be in setting of recent expiratory laparotomy but cannot rule out worsening infectious source. Check blood culture, appreciate UA from yesterday, check abdominal fluid culture. Escalate antibiotics with meropenem 1 g every 8 hourly, vancomycin. Check MRSA swab. Insulin sliding scale every 6 hour low-dose protocol. Check A1c. Continue other chronic home medications. Plan for the day: Management of drain and advancement of diet as per surgical team. Currently on full liquid diet. Continue to finish course of antibiotics for 5 days. Last dose of meropenem 0 07/25. Blood cultures so far negative. Blood pressure stable. Continue with current dose of losartan, metoprolol and amlodipine. Uptitrate as for goal blood pressure less than 140/90 mmHg. Out of bed to chair. Incentive spirometry. 07/25. Thank you for involving us in care of Ms. Shah. Please call with any questions. Care discussed detail with patient's family, patient and RN at bedside. PDMP PDMP Reviewed: Not Reviewed Attestations 2 Medical Necessity Statement*: As per primary team Diagnoses Encounter for postoperative care Z48.89 Traumatic perforation of sigmoid colon S36.593A S/P exploratory laparotomy Z98.890 Essential hypertension I10 Hypertension type: essential hypertension Atrial flutter by electrocardiogram I48.92 Type 2 diabetes mellitus E11.9 Leukocytosis D72.829
[2024-07-24 16:48] LABS: Glucose Point of Care 199 mg/dL (70-110)
[2024-07-24] MEDS: enoxaparin 40 mg/0.4 mL Syringe SUBCUT (17:19)
[2024-07-24] MEDS: efferdent effervescent 1 EACH DENTAL (20:18)
[2024-07-24] MEDS: tamsulosin 0.4 mg Capsule PO (20:18)
[2024-07-24 20:40] LABS: Glucose Point of Care 142 mg/dL (70-110)
[2024-07-25] VITALS (8 sets, daily range): BP systolic 122–157; BP diastolic 70–83; PULSE 68–89; RESP 15–18; TEMP 36.6–37.1; O2SAT 87–96
[2024-07-25] MEDS: oxyCODONE-APAP 5-325 mg Tablet 1 TAB PO (01:19)
[2024-07-25] MEDS: meropenem 1,000 mg SDV 1000 MG IVP (01:32)
[2024-07-25 04:22] LABS: Basophils # 0.1 10^3/uL (0.0-0.1); Basophils % 0.5 %; Eosinophils # 0.5 10^3/uL (0.0-0.8); Eosinophils % 4.5 %; Lymphocytes # 2.2 10^3/uL (0.8-4.8); Lymphocytes % 19.2 %; Mean Corpuscular HGB Conc 31.2 g/dL (30-55); Mean Corpuscular Hemoglobin 26.8 pg (27-33); Mean Corpuscular Volume 85.9 fl (85-98); Mean Platelet Volume 10.1 fL (7.4-10.4); Monocytes # 1.2 10^3/uL (0.2-0.9); Monocytes % 10.5 %; Nucleated Red Blood Cells % 0 %; Platelet Count 399 10^3/cmm (157-399); Red Blood Count 3.84 10^6/uL (3.85-5.65); Red Cell Distribution Width 15.9 % (12.1-15.1); White Blood Count 11.41 10^3/uL (3.29-11.43)
[2024-07-25 04:36] LABS: Alanine Aminotransferase 15 U/L (0-33); Albumin Level 2.8 g/dL (3.5-5.2); Alkaline Phosphatase 57 U/L (35-105); Anion Gap 14.5 (5-19); Aspartate Amino Transferase 19 U/L (0-32); Blood Urea Nitrogen 11 mg/dL (8-23); Carbon Dioxide 29 mmol/L (22-29); Chloride 99 mmol/L (98-107); Creatinine Clr Calc Pharmacy 57.0475; Globulin 2.5 g/dL (1.3-4.6); Glucose 142 mg/dL (65-115); Osmolality Calculated 290 mOsm/kg (285-295); Potassium 3.5 mmol/L (3.5-5.1); Sodium 139 mmol/L (136-145); Total Bilirubin 0.9 mg/dL (0.15-1.2); Total Protein 5.3 g/dL (6.6-8.7)
[2024-07-25 06:26] LABS: Glucose Point of Care 150 mg/dL (70-110)
[2024-07-25] MEDS: pantoprazole DR 40 mg Tablet PO (08:23)
[2024-07-25] MEDS: amlodipine 10 mg Tablet PO (08:23)
[2024-07-25] MEDS: metoprolol tartrate 50 mg Tablet PO (08:23)
[2024-07-25] MEDS: duloxetine 60 mg Capsule PO (08:23)
[2024-07-25] MEDS: losartan 50 mg Tablet PO (08:23)
[2024-07-25] MEDS: atorvastatin 40 mg Tablet 80 MG PO (08:24)
[2024-07-25] MEDS: insulin lispro 100 unit/1 mL SUBCUT ×2 (08:24→11:49)
[2024-07-25] MEDS: HYDROmorphone 0.5 MG/0.5 ML INJ 0.4 MG IVP (08:27)
--- NOTE | 2024-07-25 08:49 | P.PN_ITS ---
Subjective 2 Subjective: Afebrile. White count down Drain is serous Passing gas and had a bowel movement Tolerating regular diet Patient feels well. Vitals/I&O/Wt Last Vital Signs Temp 97.8 F 07/25/24 07:54 Pulse 89 07/25/24 07:54 Resp 17 07/25/24 07:54 BP 157/70 07/25/24 07:54 Pulse Ox 92 07/25/24 07:54 O2 Del Method Nasal Cannula 07/25/24 07:54 O2 Flow Rate 2 07/24/24 20:00 07/24/24 07/25/24 07/25/24 22:59 06:59 14:59 Intake Total 240 / 360 240 / 240 Output Total 145 / 185 Balance 95 / 175 240 / 240 Weight last 48 hrs Weight 142 lb 1.6 oz Weight 144 lb 9.6 oz Physical Exam 2 Narrative: Chest: Unlabored breathing room air. No lymphadenopathy. Heart: Regular rate and rhythm. Abdomen: Soft, nontender, nondistended. No masses or lymphadenopathy. Incision clean dry intact. Drain serous. Drain removed at bedside. Urinary Catheter Management: Velásquez: Cath Placed During This Visit: yes Reason for Continuing Indwelling Catheter: Accurate Measurement of Urinary Output in Critically Ill Patients Urinary Catheter Date of Insertion: 07/19/24 Urinary Catheter Time of Insertion: 13:00 Data 07/25/24 03:00 07/25/24 03:00 A&P Assessment and plan (1) Traumatic perforation of sigmoid colon: Plan 78-year-old female who presented for diagnostic colonoscopy and EGD. Had a traumatic perforation of the proximal rectum during the colonoscopy. Taken to the OR immediately for exploratory laparotomy and primary repair of the proximal rectum. Patient did well postoperatively. Drain removed prior to discharge. Patient is cleared for discharge since she is tolerating a regular diet, having bowel function. Drain removed. White count down afebrile. PDMP PDMP Reviewed: Last Reviewed 07/25/24 11:04 EDT by Villa Mina MD Attestations 2 Medical Necessity Statement*: IV antibiotics, IV fluids, serial physical exams. Coding Level of Care Code 55906 Diagnoses Traumatic perforation of sigmoid colon S36.593A
--- NOTE | 2024-07-25 10:06 | P.DS_ITS ---
Discharge Providers Date of Admission: 07/19/24 14:55 Date of Discharge: July 25, 2024 Attending Provider at Admission: Villa Mina MD Attending Provider at Discharge: Villa Mina MD Primary Care Provider: Chava Mix MD Diagnoses at Discharge Discharge Diagnosis (1) Encounter for postoperative care: Status: Acute (2) Traumatic perforation of sigmoid colon: Status: Acute (3) S/P exploratory laparotomy: Status: Acute (4) Hypertension: Status: Acute Qualifiers: Hypertension type: essential hypertension Qualified Code(s): I10 - Essential (primary) hypertension (5) Atrial flutter by electrocardiogram: Status: Acute (6) Type 2 diabetes mellitus: Status: Acute (7) Leukocytosis: Status: Acute Reason for Visit Reason for Visit: Z12.11 Hospital Course Hospital Course 78-year-old female who presented for diagnostic colonoscopy and EGD. Patient experienced atraumatic perforation of the proximal rectum during the colonoscopy. CT scan showed free air. Taken immediately to the OR for exploratory laparotomy and primary repair of the rectum. Patient doing well postoperatively. White count came down. Bowel function resumed. Tolerating regular diet. Drain removed prior to discharge. She will follow-up in clinic in 2 weeks. Physical Exam Narrative: Chest: Unlabored breathing room air. No lymphadenopathy. Heart: Regular rate and rhythm. Abdomen: Soft, nontender, nondistended. No masses or lymphadenopathy. Incision clean dry intact. Urinary Catheter Management: Velásquez: Cath Placed During This Visit: yes Reason for Continuing Indwelling Catheter: Accurate Measurement of Urinary Output in Critically Ill Patients Urinary Catheter Date of Insertion: 07/19/24 Urinary Catheter Time of Insertion: 13:00 Discharge Data Studies Completed and Pending Completed Studies During Hospitalization Category Date Time Status CT abdomen pelvis wo con [id number] Stat Cat Scan 07/19/24 12:09 Completed Pathology: Surgical [PTH] Routine Pth 07/19/24 12:03 Completed Pending at discharge Category Date Time Status Blood Culture Stat Lab 07/20/24 10:29 Results CDIFF [C.Diff PCR (Lab)] Routine Lab 07/25/24 08:30 Ordered Complete Blood Count w/Auto AM LABS Lab 07/26/24 04:00 Ordered Comprehensive Metabolic Panel AM LABS Lab 07/26/24 04:00 Ordered Radiology Impressions Abdomen/Pelvis CT 07/19/24 12:09 IMPRESSION: 1. Large amount of intraperitoneal free air. Consistent with perforated viscus. Suspect the perforation may be in the sigmoid due to the distribution of air. 2. No free fluid. 3. Fluid distended colon. 4. Prior cholecystectomy. 5. Stable RIGHT renal mass containing calcification. No significant increase in size since 2019. Notified Villa Mina MD at 07/19/2024 12:25 PM. Laboratory Results WBC 11.41 10^3/uL (3.29-11.43) 07/25/24 03:00 RBC 3.84 10^6/uL (3.85-5.65) L 07/25/24 03:00 Hgb 10.30 g/dL (11.27-16.99) L 07/25/24 03:00 Hct 33.0 % (36-47) L 07/25/24 03:00 MCV 85.9 fl (85-98) 07/25/24 03:00 MCH 26.8 pg (27-33) L 07/25/24 03:00 MCHC 31.2 g/dL (30-55) 07/25/24 03:00 RDW 15.9 % (12.1-15.1) H 07/25/24 03:00 Plt Count 399 10^3/cmm (157-399) 07/25/24 03:00 MPV 10.1 fL (7.4-10.4) 07/25/24 03:00 Neut % (Auto) 64.0 % 07/25/24 03:00 Lymph % (Auto) 19.2 % 07/25/24 03:00 Castro % (Auto) 10.5 % 07/25/24 03:00 Eos % (Auto) 4.5 % 07/25/24 03:00 Baso % (Auto) 0.5 % 07/25/24 03:00 Neut # (Auto) 7.30 10^3/uL (1.8-7.7) 07/25/24 03:00 Lymph # (Auto) 2.2 10^3/uL (0.8-4.8) 07/25/24 03:00 [place] # (Auto) 1.2 10^3/uL (0.2-0.9) H 07/25/24 03:00 Eos # (Auto) 0.5 10^3/uL (0.0-0.8) 07/25/24 03:00 Baso # (Auto) 0.1 10^3/uL (0.0-0.1) 07/25/24 03:00 Nucleated RBC % (auto) 0 % 07/25/24 03:00 Nucleated RBCs # 0.0 /100WBC 07/25/24 03:00 ESR 2 mm/hr (0-15) 07/19/24 15:14 Sodium 139 mmol/L (136-145) 07/25/24 03:00 Potassium 3.5 mmol/L (3.5-5.1) 07/25/24 03:00 Chloride 99 mmol/L (98-107) 07/25/24 03:00 Carbon Dioxide 29 mmol/L (22-29) 07/25/24 03:00 Anion Gap 14.5 (5-19) 07/25/24 03:00 BUN 11 mg/dL (8-23) 07/25/24 03:00 Creatinine 0.7 mg/dL (0.5-0.9) 07/25/24 03:00 GFR Calculation Not Reportable 07/25/24 03:00 Glucose 142 mg/dL (65-115) H 07/25/24 03:00 POC Glucose 150 mg/dL (70-110) H 07/25/24 06:16 Estimat Average Glucose 146 07/19/24 15:14 Hemoglobin A1c 6.7 % (4.0-6.0) H 07/19/24 15:14 Calculated Osmolality 290 mOsm/kg (285-295) 07/25/24 03:00 Calcium 9.0 mg/dL (8.5-10.5) 07/25/24 03:00 Magnesium 2.0 mg/dL (1.7-2.3) 07/22/24 04:20 Iron 36 ug/dL (37-145) L 07/19/24 15:14 TIBC 355 mcg/dl 07/19/24 15:14 % Saturation 10.1 % (20-50) L 07/19/24 15:14 Unsat Iron Binding 319 ug/dL (112-347) 07/19/24 15:14 Total Bilirubin 0.9 mg/dL (0.15-1.2) 07/25/24 03:00 AST 19 U/L (0-32) 07/25/24 03:00 ALT 15 U/L (0-33) 07/25/24 03:00 Alkaline Phosphatase 57 U/L (35-105) 07/25/24 03:00 C-Reactive Protein 3.0 mg/L (0.0-4.9) 07/19/24 15:14 Total Protein 5.3 g/dL (6.6-8.7) L 07/25/24 03:00 Albumin 2.8 g/dL (3.5-5.2) L 07/25/24 03:00 Globulin 2.5 g/dL (1.3-4.6) 07/25/24 03:00 Triglycerides 92 mg/dL (0-150) 07/20/24 04:44 Cholesterol 91 mg/dL (0-200) 07/20/24 04:44 LDL Cholesterol, Calc 13 mg/dL (50-129) L 07/20/24 04:44 Total VLDL Cholesterol 18 mg/dL (0-30) 07/20/24 04:44 HDL Cholesterol 60 mg/dL (60-100) 07/20/24 04:44 Cholesterol/HDL Ratio 1.52 mg/dL (0.0-4.40) 07/20/24 04:44 Vitamin B12 525 pg/mL (232-1245) 07/19/24 15:14 Folate 4.3 ng/mL (4.8-37.3) L 07/20/24 04:44 Procalcitonin 0.06 ng/mL (0-0.5) 07/19/24 15:14 TSH 1.45 uIU/mL (0.27-4.20) 07/19/24 15:14 Urine Color Yellow (Yellow) 07/20/24 09:50 Urine Appearance Clear (CLEAR) 07/20/24 09:50 Urine pH 5.5 (5-7) 07/20/24 09:50 Ur Specific [place] 1.023 (1.005-1.030) 07/20/24 09:50 Urine Protein 1+ (Negative) A 07/20/24 09:50 Urine Glucose (UA) Negative (Normal) 07/20/24 09:50 Urine Ketones 1+ (Negative) H 07/20/24 09:50 Urine Blood Negative (Negative) 07/20/24 09:50 Urine Nitrate Negative (Negative) 07/20/24 09:50 Urine Bilirubin Negative (Negative) 07/20/24 09:50 Urine Urobilinogen 0.2 mg/dL (Negative) 07/20/24 09:50 Ur Leukocyte Esterase Negative (Negative) 07/20/24 09:50 Urine RBC 0-2 /hpf (0-2) 07/20/24 09:50 Urine WBC 6-10 /hpf (0-5) 07/20/24 09:50 Ur Squamous Epith Cells 0-5 /hpf (0-5) 07/20/24 09:50 Amorphous Sediment Not Reportable 07/20/24 09:50 Urine Bacteria None seen /hpf (NONE) 07/20/24 09:50 Hyaline Casts 10.32 /lpf 07/20/24 09:50 Nasal MRSA (PCR) Not detected (Not Detecte) 07/20/24 10:20 Vancomycin Trough 8.1 ug/mL (10-15) L 07/22/24 08:43 Vitals Last Vital Signs Temp 97.8 F 07/25/24 07:54 Pulse 89 07/25/24 07:54 Resp 17 07/25/24 07:54 BP 157/70 07/25/24 08:23 Pulse Ox 92 07/25/24 07:54 O2 Del Method Nasal Cannula 07/25/24 07:54 O2 Flow Rate 2 07/24/24 20:00 Discharge Plan Discharge Patient Disposition: Home Health Service Condition: Stable Prescriptions: New oxycodone 5 mg tablet 5 mg PO Q6H PRN (Reason: pain) 5 Days Qty: 10 0RF Continued (DME) blood pressure monitor [Blood Pressure Kit] Kit See Rx Instructions .ROUTE .MEDSUPPLY Qty: 1 0RF Rx Instructions: As directed Januvia 100 mg tablet 100 mg PO QDAY empagliflozin [Jardiance] 25 mg PO DAILY atorvastatin 80 mg tablet 80 mg PO DAILY 30 Days Qty: 30 2RF pantoprazole 40 mg tablet,delayed release (DR/EC) 40 mg PO DAILY 30 Days Qty: 30 2RF (DME) blood-glucose meter [True Metrix Glucose Meter] Kit See Rx Instructions .Route Qty: 1 0RF Rx Instructions: As directed (DME) True Metrix Glucose Test Strip Strip See Rx Instructions .Route Qty: 100 5RF Rx Instructions: 1 strip daily (DME) lancets [BD Ultra Fine Lancets] 33 gauge misc See Rx Instructions .ROUTE .MEDSUPPLY Qty: 100 11RF Rx Instructions: 1 daily multivitamin [Multiple Vitamins] Tablet 1 tab PO DAILY metoprolol succinate [Toprol XL] 100 mg tablet extended release 24 hr 100 mg PO BEDTIME tamsulosin [Flomax] 0.4 mg capsule 0.4 mg PO BEDTIME amlodipine 10 mg Tablet 10 mg PO DAILY 30 Days Qty: 30 1RF duloxetine 60 mg Capsule,Delayed Release(Dr/Ec) 60 mg PO DAILY Qty: 30 1RF ibuprofen [Advil] 200 mg Tablet 400 mg PO Q6H PRN (Reason: Fever Or Pain) hydrocodone-acetaminophen 5-325 mg tablet 1 tab PO Q6H PRN (Reason: pain) Qty: 14 0RF Held Xarelto 15 mg tablet 15 mg PO DAILY Hold Instructions: Resume on 07/26/24. Discharge Orders: Discharge Order (Routine); Ordered 07/25/24 Ordered By: Villa Mina Other Ambulatory Orders: DME: Oxygen (Order) Location: None Selected Ordered By: Tess Patterson Referrals: [facility] [Outside] Villa Mina MD [Physician, General Surgery] - 08/08/24 1:55 pm Referral Note: Chava Mix MD [Primary Care Provider, Family Practice] - 08/02/24 3:30 pm Discharge Diet: Usual diet Discharge Activity: Limit activity as instructed Patient Instructions: Oxycodone, Rapid Release (By mouth), Acute Wound Care (DC), Perforated Bowel (DC), GI Post Discharge Instructions w/ Anesthesia, Opioid Safety, Post Anesthesia Care Activity Restrictions/Additional Instructions: 1. No heavy exercise or lifting greater than 10lbs for 6 weeks. 2. No pools, saunas, bathtubs for [address] if taking narcotics. 4. You may take over the counter tylenol 650mg every 6 hrs and ibuprofen 400mg every 6 hrs as needed for 5 days in addition to the oxycodone. 5. Follow-up in clinic in 2 weeks. 6. Call the office if you have any concerns or questions. Discharge Attestations Time Spent in Discharge Care*: greater than 30 min Quality Metrics Clinical Quality Measures [ No reported AMI, CVA or VTE this stay] Coding Level of Care Code Acute Code for Chg Fwd Diagnoses Encounter for postoperative care Z48.89 Traumatic perforation of sigmoid colon S36.593A S/P exploratory laparotomy Z98.890 Essential hypertension I10 Hypertension type: essential hypertension Atrial flutter by electrocardiogram I48.92 Type 2 diabetes mellitus E11.9 Leukocytosis D72.829
--- NOTE | 2024-07-25 10:07 | PC.SOCIAL ---
IMM Update pg 2 of IMM Updated and reviewed w/ patient. Copy provided and copy dated, initialed and placed in chart.
--- NOTE | 2024-07-25 11:01 | P.PN_ITS ---
Subjective 2 Subjective: 78 year old female with past medical his tory of hypertension, type 2 diabetes mellitus, atrial fibrillation on chronic Xarelto recent traumatic perforation of sigmoid colon. s/p Ex Lap reports ambulating this AM still feels weak afebrile tolerating medication Vitals/I&O/Wt Last Vital Signs Temp 97.8 F 07/25/24 07:54 Pulse 89 07/25/24 07:54 Resp 17 07/25/24 07:54 BP 157/70 07/25/24 08:23 Pulse Ox 87 L 07/25/24 10:26 O2 Del Method Nasal Cannula 07/25/24 07:54 O2 Flow Rate 2 07/25/24 10:26 07/24/24 07/25/24 07/25/24 22:59 06:59 14:59 Intake Total 240 / 360 240 / 240 Output Total 145 / 185 Balance 95 / 175 240 / 240 Weight last 48 hrs Weight 142 lb 1.6 oz Weight 144 lb 9.6 oz Physical Exam 2 Narrative: General: No acute distress, AO x3, HEENT: PERRLA, pupils bilaterally equal and reactive Chest: Normal vesicular breath sounds, no added sounds, equal good air entry bilaterally CVS: S1-S2 regular, no murmurs, no tachycardia, no gallops, no rubs Abdomen: Soft, mild generalized tenderness no organomegaly, bowel sounds present, NG tube in place Neuro: No focal deficits, no facial deformity, AO x3, power 5/5 in all limbs Urinary Catheter Management: Velásquez: Cath Placed During This Visit: yes Reason for Continuing Indwelling Catheter: Accurate Measurement of Urinary Output in Critically Ill Patients Urinary Catheter Date of Insertion: 07/19/24 Urinary Catheter Time of Insertion: 13:00 Data 07/25/24 03:00 07/25/24 03:00 Micro: Microbiology 07/20/24 10:29 Blood Culture - Final Blood NO GROWTH AFTER 5 DAYS 07/20/24 10:25 Blood Culture - Final Blood NO GROWTH AFTER 5 DAYS A&P Assessment and plan (1) Encounter for postoperative care: Plan 1) Encounter for postoperative care: (2) Traumatic perforation of sigmoid colon: (3) S/P exploratory laparotomy: (4) Hypertension: (5) Atrial flutter by electrocardiogram: (6) Type 2 diabetes mellitus: (7) Leukocytosis: plan for dc today PDMP PDMP Reviewed: Not Reviewed Attestations 2 Medical Necessity Statement*: post op care Coding Level of Care Code 83744 Diagnoses Encounter for postoperative care Z48.89
[2024-07-25 11:22] LABS: Glucose Point of Care 158 mg/dL (70-110)
--- NOTE | 2024-07-25 11:29 | PC.NURSE ---
Per Dr. Patterson, pt my be discharged home today
== END 2024-07-25 12:20 | disposition home health service (06) | DRG 908 ==
LOC: ICU 14:56 → MEDSURG 07-22 15:26
PROVIDERS: Student in an Organized Health Care Education/Training Program; Admitting Provider Student in an Organized Health Care Education/Training Program; PCP Family Medicine; Visit Provider Student in an Organized Health Care Education/Training Program
PROC: 0DJ08ZZ Inspection of Upper Intestinal Tract, Via Natural or Artificial Opening Endoscopic (ICD-10-PCS; principal; 2024-07-19 10:30)
PROC: 0DJD0ZZ Inspection of Lower Intestinal Tract, Open Approach (ICD-10-PCS; 2024-07-19 10:30)
PROC: 0DJD8ZZ Inspection of Lower Intestinal Tract, Via Natural or Artificial Opening Endoscopic (ICD-10-PCS; CPT 45330; 2024-07-19 10:30)
PROC: 0DJD0ZZ Inspection of Lower Intestinal Tract, Open Approach (ICD-10-PCS; CPT 49000; principal; 2024-07-19 14:55)
PROC: 0DJD0ZZ Inspection of Lower Intestinal Tract, Open Approach (ICD-10-PCS; CPT 44120; 2024-07-19 14:55)
PROC: 0DJD8ZZ Inspection of Lower Intestinal Tract, Via Natural or Artificial Opening Endoscopic (ICD-10-PCS; CPT 45330; 2024-07-19 14:55)
DX: K91.71 Accidental puncture and laceration of a digestive system organ or structure during a digestive system procedure (principal); I48.92 Unspecified atrial flutter; Y83.8 Other surgical procedures as the cause of abnormal reaction of the patient, or of later complication, without mention of misadventure at the time of the procedure; I10 Essential (primary) hypertension; I48.91 Unspecified atrial fibrillation; E11.9 Type 2 diabetes mellitus without complications; K21.9 Gastro-esophageal reflux disease without esophagitis; F41.8 Other specified anxiety disorders; E55.9 Vitamin D deficiency, unspecified; M51.369 Other intervertebral disc degeneration, lumbar region without mention of lumbar back pain or lower extremity pain; G47.00 Insomnia, unspecified; E78.5 Hyperlipidemia, unspecified; K29.50 Unspecified chronic gastritis without bleeding; K57.30 Diverticulosis of large intestine without perforation or abscess without bleeding; Z79.891 Long term (current) use of opiate analgesic; Z79.01 Long term (current) use of anticoagulants
CPT/HCPCS: 36415; 36416; 43239; 45378; 51702; 74176; 80053; 80061; 80202; 81001; 82607; 82746; 82962; 83036; 83540; 83550; 83735; 84145; 84443; 85025; 85651; 86140; 87040; 87070; 87075; 87205; 88305; 94760; 96372; 97110; 97116; 97163; 97165; 97530; C9250; J0330; J1100; J1171; J1644; J1650; J1815; J2185; J2405; J2543; J2704; J3010; J3370; J3490; J7040; J7050; J7120; J9999; P9045

== ENCOUNTER → 2024-08-08 13:22 | Outpatient (BNVA) | payer MEDICARE, MEDICAID, SELFPAY | PROVIDERS: PCP Family Medicine; Visit Provider Student in an Organized Health Care Education/Training Program | DX: S36.593A Other injury of sigmoid colon, initial encounter (principal); X58.XXXA Exposure to other specified factors, initial encounter; Z98.890 Other specified postprocedural states | CPT/HCPCS: 99024 ==